=== PATIENT | male | born 1965 | race Caucasian/White ===

== ENCOUNTER 2018-06-01 01:56 | Inpatient (IN) | payer SELFPAY ==
--- OUTSIDE RECORDS SUMMARY | 2018-06-01 01:59 | XMS REPORT | Clinical Summary ---
:1965 Author Organization [facility] Address [address] [place] [address] Care Team Providers Name Role Phone Tl Soria MD Primary Care Provider Allergies No Known Allergies Medications Medication Sig Dispensed Refills Start Date End Date Status traMADol (ULTRAM) 50 Take 1 tablet 15 tablet 0 10/07/2017 10/12/2017 mg tablet (50 mg total) by mouth every 6 (six) hours as needed for moderate pain for up to 5 days. ondansetron ODT Take 1 tablet 10 tablet 0 10/07/2017 11/06/2017 (ZOFRAN ODT) 4 MG (4 mg total) by disintegrating tablet mouth every 8 (eight) hours as needed for nausea or vomiting for up to 30 days. promethazine Take 1 tablet 30 tablet 0 10/07/2017 11/06/2017 (PHENERGAN) 25 MG (25 mg total) tablet by mouth every 6 (six) hours as needed for nausea or vomiting for up to 30 days. Active Problems Not on file Encounters Date Type Specialty Care Team Description 10/07/2017 Emergency Emergency Medicine [facility] Epigastric pain ( Primary Dx); MD Jacob Non-intractable vomiting with nausea, unspecified vomiting type after 05/31/2017 Social History Tobacco Use Types Packs/Day Years Used Date Never Smoker Smokeless Tobacco: Never Used Alcohol Use Drinks/Week oz/Week Comments No former drinker Sex Assigned at Date Recorded Not on file Job Start Date Occupation Industry Not on file Not on file Not on file Travel History Travel Start Travel End No recent travel history available. Last Filed Vital Signs Vital Sign Reading Time Taken Blood Pressure 170/105 10/07/2017 10:30 AM CDT Pulse 99 10/07/2017 10:30 AM CDT Temperature 37.1 C (98.8 F) 10/07/2017 10:30 AM CDT Respiratory Rate 18 10/07/2017 10:30 AM CDT Oxygen Saturation 96% 10/07/2017 10:30 AM CDT Inhaled Oxygen Concentration - - Weight 86.1 kg (189 lb 13.1 oz) 10/07/2017 7:51 AM CDT Height 180.3 cm (5' 11") 10/07/2017 7:51 AM CDT Body Mass Index 26.47 10/07/2017 7:51 AM CDT Plan of Treatment Health Maintenance Due Date Last Done Comments COLON CANCER SCREENING 2014 SHINGRIX VACCINE (1 of 2) 2014 INFLUENZA VACCINE 01/28/2018 HEPATITIS B VACCINES Aged Out No longer eligible based on patient's age to complete this topic IPV VACCINES Aged Out No longer eligible based on patient's age to complete this topic MENINGOCOCCAL VACCINE Aged Out No longer eligible based on patient's age to complete this topic Procedures Procedure Name Priority Date/Time Associated Comments Diagnosis CT RENAL STONE PROTOCOL STAT 10/07/2017 9:38 Results for this AM CDT procedure are in the results section. ECG ED PRELIMINARY Routine 10/07/2017 8:39 Results for this INTERPRETATION AM CDT procedure are in the results section. URINALYSIS SCREEN AND STAT 10/07/2017 8:15 Results for this MICROSCOPY, WITH REFLEX AM CDT procedure are in TO CULTURE the results section. URINE CULTURE STAT 10/07/2017 8:15 Results for this AM CDT procedure are in the results section. ZZESTIMATED GFR STAT 10/07/2017 8:05 Results for this AM CDT procedure are in the results section. TROPONIN STAT 10/07/2017 8:05 Results for this AM CDT procedure are in the results section. LIPASE LEVEL STAT 10/07/2017 8:05 Results for this AM CDT procedure are in the results section. MAGNESIUM LEVEL STAT 10/07/2017 8:05 Results for this AM CDT procedure are in the results section. COMPREHENSIVE METABOLIC STAT 10/07/2017 8:05 Results for this PANEL AM CDT procedure are in the results section. PARTIAL THROMBOPLASTIN STAT 10/07/2017 8:05 Results for this TIME (PTT) AM CDT procedure are in the results section. PROTHROMBIN TIME WITH STAT 10/07/2017 8:05 Results for this INR AM CDT procedure are in the results section. HC COMPLETE BLD COUNT STAT 10/07/2017 8:05 Results for this W/AUTO DIFF AM CDT procedure are in the results section. ECG 12-LEAD STAT 10/07/2017 7:58 Results for this AM CDT procedure are in the results section. after 05/31/[address] Renal Stone Protocol (10/07/2017 9:38 AM CDT) Narrative Performed At EXAMINATION:CT RENAL STONE PROTOCOL [facility] CLINICAL HISTORY:flank pain TECHNIQUE: Multiple axial images of the abdomen and pelvis were obtained without intravenous administration of iodinated contrast. Sagittal and coronal computerized reformatted images were also obtained. The lack of intravenous contrast reduces the sensitivity of detecting solid organ disease. COMPARISON:None. FINDINGS: Lower chest: No parenchymal or amount is noted in the lung bases. Abdomen: Limited evaluation of the solid organs in the absence of intravenous contrast. Fatty infiltration of the liver. No focal liver lesion can be visualized on this noncontrast examination. Spleen is not enlarged. There are prominent varicosities in the gastrosplenic ligament and the left upper quadrant. The adrenal glands are normal. The pancreas is atrophic with dilatation of the main pancreatic duct extending to the level of the pancreatic head. No obvious lesion can be seen on this noncontrast examination. The possibility of the sequela of prior pancreatitis and chronic pancreatitis is raised. No definite peripancreatic inflammation is seen. The adrenal glands are normal. Nonspecific stranding is seen surrounding the kidneys bilaterally. There is no evidence of a renal stone. No definite solid renal mass. No hydronephrosis or hydroureter. There is no evidence of a ureteral calculus. Atherosclerosis abdominal aorta without evidence of aneurysm. No enlarged upper abdominal, retroperitoneal, or mesenteric root lymph nodes by CT size criteria. There is no abnormal colonic wall thickening or evidence of a colonic obstruction. The appendix is normal. There is no evidence of a small bowel obstruction. There is a staple line at the level of the gastric antrum. Pelvis: No free fluid in the pelvis. No enlarged pelvic lymph nodes. Bladder and prostate appear unremarkable. No suspicious bony lesion. IMPRESSION: Atrophic appearance of the pancreas with ductal dilatation as detailed above. Although the findings may be secondary to chronic pancreatitis, an obstructing pancreatic mass cannot be entirely excluded on the basis of a noncontrast CT. This can be further evaluated with a nonemergent contrast enhanced pancreas protocol MRI. No findings to suggest acute pancreatitis. Fatty infiltration of the liver. Nonspecific stranding surrounding the kidneys bilaterally. No evidence of nephroureterolithiasis. Correlate with urinalysis to exclude urinary tract infection. [facility]-[id number] Procedure Note [facility], Radiology Results Incoming - 10/07/2017 9:55 AM CDT EXAMINATION: CT RENAL STONE PROTOCOL CLINICAL HISTORY: flank pain TECHNIQUE: Multiple axial images of the abdomen and pelvis were obtained without intravenous administration of iodinated contrast. Sagittal and coronal computerized reformatted images were also obtained. The lack of intravenous contrast reduces the sensitivity of detecting solid organ disease. COMPARISON: None. FINDINGS: Lower chest: No parenchymal or amount is noted in the lung bases. Abdomen: Limited evaluation of the solid organs in the absence of intravenous contrast. Fatty infiltration of the liver. No focal liver lesion can be visualized on this noncontrast examination. Spleen is not enlarged. There are prominent varicosities in the gastrosplenic ligament and the left upper quadrant. The adrenal glands are normal. The pancreas is atrophic with dilatation of the main pancreatic duct extending to the level of the pancreatic head. No obvious lesion can be seen on this noncontrast examination. The possibility of the sequela of prior pancreatitis and chronic pancreatitis is raised. No definite peripancreatic inflammation is seen. The adrenal glands are normal. Nonspecific stranding is seen surrounding the kidneys bilaterally. There is no evidence of a renal stone. No definite solid renal mass. No hydronephrosis or hydroureter. There is no evidence of a ureteral calculus. Atherosclerosis abdominal aorta without evidence of aneurysm. No enlarged upper abdominal, retroperitoneal, or mesenteric root lymph nodes by CT size criteria. There is no abnormal colonic wall thickening or evidence of a colonic obstruction. The appendix is normal. There is no evidence of a small bowel obstruction. There is a staple line at the level of the gastric antrum. Pelvis: No free fluid in the pelvis. No enlarged pelvic lymph nodes. Bladder and prostate appear unremarkable. No suspicious bony lesion. IMPRESSION: Atrophic appearance of the pancreas with ductal dilatation as detailed above. Although the findings may be secondary to chronic pancreatitis, an obstructing pancreatic mass cannot be entirely excluded on the basis of a noncontrast CT. This can be further evaluated with a nonemergent contrast enhanced pancreas protocol MRI. No findings to suggest acute pancreatitis. Fatty infiltration of the liver. Nonspecific stranding surrounding the kidneys bilaterally. No evidence of nephroureterolithiasis. Correlate with urinalysis to exclude urinary tract infection. [facility]-[id number] Performing Organization Address City/State/Zipcode Phone Number [facility] [address] [place] [address] ECG ED Preliminary Interpretation - NOT AN ORDER (10/07/2017 8:39 AM CDT) Narrative Performed At [facility] MD 10/07/2017 10:29 AM ECG ED Preliminary Interpretation - Not an Order Performed by: [facility] Authorized by: CASA TORREZ ECG reviewed by ED Physician in the absence of a warper fixer: yes Previous ECG: Previous ECG:Unavailable Interpretation: Interpretation: abnormal Rate: ECG rate:129 ECG rate assessment: tachycardic Rhythm: Rhythm: sinus tachycardia Ectopy: Ectopy: none QRS: QRS axis:Normal QRS intervals:Normal Conduction: Conduction: normal ST segments: ST segments:Normal T waves: T waves: normal Urinalysis screen and microscopy, with reflex to culture (10/07/2017 8:15 AM CDT) Specimen site Clean catch [facility] DEPARTMENT OF PATHOLOGY AND GENOMIC MEDICINE Color, UA Yellow YELLOW [facility] GENOMIC MEDICINE Appearance, UA Clear Clear [facility] DEPARTMENT OF PATHOLOGY AND GENOMIC MEDICINE Specific gravity, UA 1.016 1.005 - 1.030 [facility] DEPARTMENT OF PATHOLOGY AND GENOMIC MEDICINE pH, UA 6.0 5.0 - 8.0 [facility] DE[facility] OF PATHOLOGY AND GENOMIC MEDICINE Protein, UA 1+ (A) Negative [facility] DEPARTMENT OF PATHOLOGY AND GENOMIC MEDICINE Glucose, UA Negative Negative [facility] DEPARTMENT OF PATHOLOGY AND GENOMIC MEDICINE Ketones, UA 2+ (A) Negative [facility] DEPARTMENT OF PATHOLOGY AND GENOMIC MEDICINE Bilirubin, UA Negative Negative [facility] DEPARTMENT OF PATHOLOGY AND GENOMIC MEDICINE Blood, UA Negative Negative [facility] DEPARTMENT OF PATHOLOGY AND GENOMIC MEDICINE Nitrite, UA Negative NEGATIVE [facility] DEPARTMENT OF PATHOLOGY AND GENOMIC MEDICINE Urobilinogen, UA <2.0 <2.0 E.U./dL [facility] DEPARTMENT OF PATHOLOGY AND GENOMIC MEDICINE Leukocyte esterase, UA Negative Negative [facility] DEPARTMENT OF PATHOLOGY AND GENOMIC MEDICINE Epithelial cells, UA <1 0 - 15 /HPF [facility] DEPARTMENT OF PATHOLOGY AND GENOMIC MEDICINE WBC, UA 2 0 - 5 /Hpf [facility] DEPARTMENT OF PATHOLOGY AND GENOMIC MEDICINE RBC, UA 1 0 - 5 /HPF [facility] DEPARTMENT OF PATHOLOGY AND GENOMIC MEDICINE Bacteria, UA None seen None seen [facility] DEPARTMENT OF PATHOLOGY AND GENOMIC MEDICINE Yeast, UA None seen None Seen [facility] DEPARTMENT OF PATHOLOGY AND GENOMIC MEDICINE Yeast with pseudohyphae, UA None seen [facility] DEPARTMENT OF PATHOLOGY AND GENOMIC MEDICINE Hyaline casts, UA 10-20/l (H) 0 - 1 [facility] DEPARTMENT OF PATHOLOGY AND GENOMIC MEDICINE Specimen Urine Performing Organization Address City/[facility] Cent[facility] Phone Number [facility] DEPARTMENT OF PATHOLOGY AND [address] [place], [place] [address]y. [address] Urine culture (10/07/2017 8:15 AM CDT) Urine culture SEE COMMENTComment: Bacteriuria [facility] DEPARTMENT OF PATHOLOGY screen negative. AND GENOMIC MEDICINE Performing Organization Address [facility] Cent[facility] Phone Number [facility] PATHOLOGY AND [address] [place], [place] [address]y. [address] Estimated GFR (10/07/2017 8:05 AM CDT) GFR Non Af Amer >90 mL/min/1.73 m2 [facility] DEPARTMENT OF PATHOLOGY AND GENOMIC MEDICINE GFR Af Amer >90 mL/min/1.73 m2 [facility] DEPARTMENT OF Comment: PATHOLOGY AND [facility] Chronic kidney disease: <60 mL/min/1.73m2 MEDICINE Kidney failure: <15 mL/min/1.73m2 The estimated GFR is calculated from the IDMS-traceable Modification of Diet in Renal Disease Equation. The accuracy of the calculation is poor when the creatinine is normal. Calculated values >90 mL/min/1.73m2 are not reported. This equation has not been validated in children (<18 years), women, the elderly (>70 years), or ethnic groups other than Caucasians and Americans. Specimen Plasma specimen Performing Organization Address [facility] Centercode Phone Number [facility] DEPARTMENT OF PATHOLOGY AND [address] [place], [place] [address]y. [address] [place] [id number] [facility] Troponin (10/07/2017 8:05 AM CDT) Troponin <0.300 0.000 - 0.300 ng/mL [facility] DEPARTMENT OF Comment: PATHOLOGY AND GENOMIC The diagnostic value of a single normal or non-diagnostic MEDICINE result is questionable.Serial samples at 2-6 hour intervals are required to rule out acute myocardial injury. Specimen Plasma specimen Performing Organization Address [facility] Cent[facility]ode Phone Number [facility] OF PATHOLOGY AND [address] [place], [place] [address]y. [address] [place] [address] [facility] Partial thromboplastin time, activated (10/07/2017 8:05 AM CDT) PTT 30.1 23.0 - 36.0 sec [facility] DEPARTMENT OF Comment: PATHOLOGY AND [employer] PTT therapeutic range for unfractionated heparin is MEDICINE 66.0-112.0 seconds which corresponds to Anti-Xa 0.3-0.7 U/mL. The reference range has changed starting 11/28/2009 @12:00pm Specimen Blood Performing Organization Address City/[facility] Cent[facility] Phone Number [facility] AND [address] [place], [place] [address]y. [address] [place] [address] [facility] Prothrombin time with INR (10/07/2017 8:05 AM CDT) Prothrombin time 14.3 12.0 - 15.0 sec [facility] DEPARTMENT OF PATHOLOGY AND GENOMIC MEDICINE INR 1.1 [facility] DEPARTMENT OF Comment: PATHOLOGY AND [employer] The International Normalized Ratio (INR) is a therapeutic MEDICINE monitoring tool for patients who are stable on oral anticoagulant therapy. An INR of 2.0-3.0 is suggested for deep vein thrombosis/pulmonary embolism. Specimen Blood Performing Organization Address [facility] Phone Number [facility] AND [address] [place] [address]. [address] [place] [address] [facility] CBC with platelet and differential (10/07/2017 8:05 AM CDT) WBC 8.1 4.5 - 11.0 k/uL [facility] DEPARTMENT OF PATHOLOGY AND GENOMIC MEDICINE RBC 4.51 4.40 - 6.00 M/uL [facility] DEPARTMENT OF PATHOLOGY AND GENOMIC MEDICINE HGB 14.5 14.0 - 18.0 g/dL [facility] DEPARTMENT OF PATHOLOGY AND GENOMIC MEDICINE HCT 39.5 (L) 41.0 - 51.0 % [facility] DEPART[facility] OF PATHOLOGY AND GENOMIC MEDICINE MCV 87.6 82.0 - 100.0 fL [facility] DEPARTMENT OF PATHOLOGY AND GENOMIC MEDICINE MCH 32.2 27.0 - 34.0 pg [facility] DEPARTMENT OF PATHOLOGY AND GENOMIC MEDICINE MCHC 36.7 31.0 - 37.0 g/dL [facility] DEPARTMENT OF PATHOLOGY AND GENOMIC MEDICINE RDW - SD 40.8 37.0 - 55.0 fL [facility] DEPARTMENT OF PATHOLOGY AND GENOMIC MEDICINE MPV 8.8 8.8 - 13.2 fL [facility] DEPARTMENT OF PATHOLOGY AND GENOMIC MEDICINE Platelet count 268 150 - 400 K/uL [facility] DEPARTMENT OF PATHOLOGY AND GENOMIC MEDICINE Nucleated RBC 0.00 /100 WBC [facility] DEPARTMENT OF PATHOLOGY AND GENOMIC MEDICINE Neutrophils 72.3 (H) 39.0 - 69.0 % [facility] DEPARTMENT OF PATHOLOGY AND GENOMIC MEDICINE Lymphocytes 16.7 (L) 25.0 - 45.0 % [facility] DEPARTMENT OF PATHOLOGY AND GENOMIC MEDICINE Monocytes 7.7 0.0 - 10.0 % [facility] DEPARTMENT OF PATHOLOGY AND GENOMIC MEDICINE Eosinophils 2.2 0.0 - 5.0 % [facility] DEPARTMENT OF PATHOLOGY AND GENOMIC MEDICINE Basophils 0.7 0.0 - 1.0 % [facility] DEPARTMENT OF PATHOLOGY AND GENOMIC MEDICINE Immature granulocytes 0.4Comment: "Immature 0.0 - 1.0 % [facility] DEPARTMENT OF granulocytes" PATHOLOGY AND GENOMIC (promyelocytes, MEDICINE myelocytes, metamyelocytes) Specimen Blood Performing Organization Address City/[facility]/Zipcode Phone Number [facility] DEPARTMENT OF PATHOLOGY AND [address] [place] [address] [address] Magnesium level (10/07/2017 8:05 AM CDT) Magnesium 1.5 (L) 1.7 - 2.4 mg/dL [facility] DEPARTMENT OF PATHOLOGY AND GENOMIC MEDICINE Specimen Plasma specimen Performing Organization Address City/[facility] Centercode Phone Number [facility] DEPARTMENT OF PATHOLOGY AND [address] [place] [address] [address] Lipase level (10/07/2017 8:05 AM CDT) Lipase 22 (L) 23 - 300 U/L [facility] DEPARTMENT OF PATHOLOGY AND GENOMIC MEDICINE Specimen Plasma specimen Performing Organization Address City/[facility] Centercode Phone Number [facility] OF PATHOLOGY AND [address] [place] [address] [address] Comprehensive metabolic panel (10/07/2017 8:05 AM CDT) Sodium 140 135 - 148 mEq/L [facility] DEPARTMENT OF PATHOLOGY AND GENOMIC MEDICINE Potassium 3.4 (L) 3.5 - 5.0 mEq/L [facility] DEPARTMENT OF PATHOLOGY AND GENOMIC MEDICINE Chloride 95 (L) 99 - 109 mEq/L [facility] DEPARTMENT OF PATHOLOGY AND GENOMIC MEDICINE CO2 23 (L) 24 - 31 mEq/L [facility] DEPARTMENT OF PATHOLOGY AND GENOMIC MEDICINE Anion gap 22 (H) 7 - 15 mEq/L [facility] DEPARTMENT OF Comment: PATHOLOGY AND GENOMIC Starting from September , anion gap calculation MEDICINE no longer incorporates potassium. Please note the change. BUN 8 8 - 24 mg/dL [facility] DEPARTMENT OF PATHOLOGY AND [employer] MEDICINE Creatinine 0.8 0.5 - 1.5 mg/dL [facility] DEPARTMENT OF PATHOLOGY AND [employer] MEDICINE Glucose 137 (H) 65 - 99 mg/dL [facility] OF PATHOLOGY AND [employer] MEDICINE Calcium 9.4 8.6 - 10.6 mg/dL [facility] DEPARTMENT OF PATHOLOGY AND [employer] MEDICINE Protein 7.6 6.3 - 8.2 g/dL [facility] DEPARTMENT OF PATHOLOGY AND [employer] MEDICINE Albumin 4.5 3.5 - 5.0 g/dL [facility] DEPARTMENT OF PATHOLOGY AND [employer] MEDICINE A/G ratio 1.45 0.70 - 3.80 [facility] DEPARTMENT OF PATHOLOGY AND [employer] MEDICINE Alkaline phosphatase 104 30 - 115 U/L [facility] DEPARTMENT OF PATHOLOGY AND [employer] MEDICINE AST 35 15 - 46 U/L [facility] DEPARTMENT OF PATHOLOGY AND [employer] MEDICINE ALT 29 10 - 55 U/L [facility] DEPARTMENT OF PATHOLOGY AND [employer] MEDICINE Total bilirubin 1.0 0.2 - 1.2 mg/dL [facility] DEPARTMENT OF PATHOLOGY AND [employer] MEDICINE Specimen Plasma specimen Performing Organization Address City/[facility] Centercode Phone Number [facility] DEPARTMENT OF PATHOLOGY AND [address] [place], [place] [address]y. [address] [place] [address] [facility] ECG 12 lead (10/07/2017 7:58 AM CDT) Ventricular rate 129 [facility] MUSE Atrial rate 129 [facility] MUSE [place] interval 174 [facility] MUSE QRSD interval 80 [facility] M[facility] QT interval 288 [facility] QTC interval 421 [facility] P axis 1 47 [facility] QRS axis 1 -22 [facility] MUSE T wave axis 59 [facility] MUSE EKG impression Sinus tachycardia with occasional premature ventricular complexes-Cannot rule out Inferior infarct , age undetermined-Anterior infarct , age undetermined-Abnormal ECG-No previous ECGs available-Electron [facility] MUSE ically Signed By Ricardo Espinosa ([id number]) on 10/09/2017 12:13:04 AM Performing Organization Address City/[facility] Centercode Phone Number [facility] [employer] [address] [place] [address] after 05/31/2017 Advance Directives Patient has advance care planning documents on file. For more information, please contact:[facility] [id number] [place] [address]
--- OUTSIDE RECORDS SUMMARY | 2018-06-01 02:06 | XMS REPORT | Continuity of Care Document ---
:1965 Author Organization Interface Problems Problem Status Onset Classification Date Comments Source Date Reported ABDOMINAL PAIN Active 09/06/19 [facility] ABDOMINAL PAIN, Active 09/06/19 [facility] ALCOHOL DEPENDENCE 17 [facility] WITH ABDOMINAL PAIN, Active 09/06/19 [facility] ALCOHOL DEPENDENCE 17 [facility] WITH WITHDRAWAL ACUTE PANCREATITIS Active 08/05/19 [facility] WITHOUT NECROSIS 17 [facility] OR INFECTION, UNS Discharge 07/23/19 07/27/2016 [facility] Diagnosis: 17 [facility] Accidental fall Discharge 07/23/19 07/27/2016 [facility] Diagnosis: 17 [facility] Laceration Discharge 07/23/19 07/27/2016 [facility] Diagnosis: Acute 17 [facility] alcohol intoxication FALL INJURY Active 07/23/19 [facility] ALCOHOL Active 07/08/19 [facility] INTOXICATION 17 [facility] CONCUSSION WITH Active 07/08/19 [facility] LOSS OF 17 Hospital CONSCIOUSNESS OF UNSPECIFIE FALL Active 07/08/19 [facility] NAUSEA Active 06/30/19 [facility] PANCREATITIS Active 06/30/19 [facility] VOMITING, LT Active 06/13/20 [facility] QUARDRANT PAIN 16 [facility] VOLUME DEPLETION, Active 06/13/20 [facility] UNSPECIFIED 16 [facility] Alcohol dependence Active Problem 09/14/2016 [facility] with withdrawal Hospital delirium Chronic gastritis Active Problem 09/14/2016 [facility] Chronic Active Problem 09/14/2016 [facility] pancreatitis Hospital Alcohol-induced Active Problem 09/14/2016 [facility] pancreatitis Cerebrovascular Resolved Problem 09/14/2016 [facility] accident (<span Hospital ID="[id number]"> Confirmed</span>) Hepatic steatosis Active Problem 09/14/2016 [facility] Asthma Resolved Problem 09/14/2016 [facility] Hypertension Active Problem 09/14/2016 [facility] Arthritis Resolved Problem 09/14/2016 [facility] CHF (<span Resolved Problem 06/17/2016 [facility] ID="[id number]"> Hospital Confirmed</span>) Pancreatitis Resolved Problem 06/17/2016 [facility] CHF (<span Active Problem 09/14/2016 [facility] ID="[id number]"> Hospital Confirmed</span>) Medications Medication Details Route Status Patient Ordering Order Source Instructions Provider Date thiamine 100 mg 100 mg=1 tab, Active [facility] oral tablet PO, Daily, X 30 2016 Hospital day, # 30 tab, 0 Refill(s) Folic Acid 1 MG 1 mg=1 tab, PO, Active [facility] Oral Tablet Daily, # 30 2016 Hospital tab, 0 Refill(s) metoprolol 25 mg, PO, BID, Active [facility] tartrate 25 mg # 60 tab, 0 2016 [facility] oral tablet Refill(s) Chlordiazepoxide 25 mg, 1 cap, No Longer Mee Hydrochloride 25 Route: PO, Drug Active 2016 [facility] MG Oral Capsule form: CAP, BID, Dosing Weight 81.818, kg, Alcohol Withdrawal, Start date: 09/10/16 9:00:00 CDT, Duration: 30 day, Stop date: 10/09/16 21:00:00 CDT Acetaminophen 300 1 tab, Route: No Longer Mee MG / Codeine PO, Drug Form: Active 2016 [facility] Phosphate 30 MG TAB, Dosing Oral Tablet Weight 81.818, [Tylenol with kg, Q4H, PRN Codeine #3] Pain Score 1-3, Start date: 09/09/16 14:24:00 CDT, Duration: 30 day, Stop date: 10/09/16 14:23:00 CDTNotes: Do not exceed 4gm/day of acetaminophen. (Same as: Tylenol with Codeine # 3) Folic Acid 1 mg, 1 tab, No Longer Mee Route: PO, Drug Active 2016 [facility] form: TAB, Daily, Dosing Weight 81.818, kg, Start date: 09/09/16 9:00:00 CDT, Duration: 30 day, Stop date: 10/08/16 9:00:00 CDTNotes: (Same as: Folvite) Thiamine 100 mg, 1 tab, No Longer Mee Route: PO, Drug Active 2016 [facility] form: TAB, Daily, Dosing Weight 81.818, kg, Start date: 09/09/16 9:00:00 CDT, Duration: 30 day, Stop date: 10/08/16 9:00:00 CDTNotes: (Same As: Vitamin B1) Protonix 40 mg, 1 tab, No Longer Mee Route: PO, Drug Active 2016 Hospital form: ECTAB, Before Dinner, Dosing Weight 81.818, kg, Start date: 09/08/16 16:30:00 CDT, Duration: 30 day, Stop date: 10/07/16 16:30:00 CDTNotes: Tablet should not be chewed or crushed. (Same as: Protonix) Sodium Chloride 25 mL, Route: No Longer Mee 0.9% IV IV, Start date: Active 2017 [facility] 09/07/16 16:22:00 [place], Duration: 30 day, Stop date: 10/07/16 17:21:00 CDT, PRN Line Flush Morphine 4 mg, 1 mL, No Longer Mee Route: IVP, Active [address] [place] [address] Drug form: INJ, Q4H, Dosing Weight 81.818, kg, PRN Pain Score 7-10, Start date: 09/07/16 16:17:00 [place], Duration: 30 day, Stop date: 10/07/16 16:16:00 CDTNotes: (Same as:MORPhine Sulfate) Protonix 40 mg, 1 tab, No Longer Mee Route: PO, Drug Active 2016 [facility] form: ECTAB, Before Dinner, Dosing Weight 81.818, kg, Start date: 09/06/16 17:47:00 [place], Duration: 30 day, Stop date: 10/06/16 16:30:00 CDTNotes: Tablet should not be chewed or crushed. (Same as: Protonix) influenza virus 0.5 mL, Route: Inactive Mee vaccine, IM, Drug Form: 2017 [facility] inactivated SUSP, Daily, Start date: 09/06/16 9:00:00 [place], Duration: 1 doses or times, Stop date: 09/06/16 9:00:00 CSTNotes: (Same as: Fluzone Quadrivalent, Fluarix Quadrivalent) For 3 years of age and older (0.5 mL IM) Shake well before use potassium chloride 40 mEq, 2 tab, No Longer Mee Route: PO, Drug Active 2016 Hospital form: ERTAB, Daily, Dosing Weight 81.818, kg, Start date: 09/06/16 9:00:00 [place], Duration: 30 day, Stop date: 10/05/16 9:00:00 CDTNotes: (Same as: K-Dur 20) "Do Not Crush" With food and full glass of water Magnesium Sulfate 2 gm, 50 mL, Inactive Mee Route: IVPB, 2016 [facility] Drug form: INJ, ONCE, Dosing Weight 81.818, kg, Start date: 09/06/16 8:18:00 [place], Duration: 2 hr, Stop date: 09/06/16 8:18:00 CSTNotes: WASTE: F/P - Sink; E - [employer] Trash Bin metoprolol 25 mg, 1 tab, No Longer Mee tartrate Route: PO, Drug Active 2016 Hospital form: TAB, BID, Dosing Weight 81.818, kg, Start date: 09/05/16 21:00:00 [place], Duration: 30 day, Stop date: 10/05/16 9:00:00 CDTNotes: (Same as: Lopressor) Magnesium Sulfate 2 gm, 50 mL, Inactive Mee Route: IVPB, 2016 [facility] Drug form: INJ, Q2H, Dosing Weight 81.818, kg, Total dose=4 gm, Start date: 09/05/16 20:00:00 [place], Duration: 2 doses or times, Stop date: 09/05/16 22:00:00 CSTNotes: WASTE: F/P - Sink; E - [employer]ash Bin Sodium Chloride 250 mL, Rate: Inactive Mee 0.154 MEQ/ML 62.5 ml/hr, 2017 Hospital Injectable Infuse over: Solution 4.2 hr, Route: IV, Dosing Weight 81.818 kg, Total Volume: 260, Start date: 09/05/16 19:29:00 [place], Duration: 1 doses or times, Stop date: 09/05/16 23:40:00 [facility] Chlordiazepoxide 25 mg, 1 cap, No Longer Mee Hydrochloride 25 Route: PO, Drug Active 2016 [facility] MG Oral Capsule form: CAP, Q6H, Dosing Weight 81.818, kg, Alcohol Withdrawal, Start date: 09/05/16 18:00:00 [place], Duration: 30 day, Stop date: 10/05/16 12:00:00 CDT Sodium Chloride 1,000 mL, Rate: No Longer Mee 0.154 MEQ/ML 100 ml/hr, Active 2017 [facility] Injectable Infuse over: Solution 10.1 hr, Route: IV, Dosing Weight 81.818 kg, Total Volume: 1,011.2, Start date: 09/05/16 17:47:00 [place], Duration: 3 day, Stop date: 09/08/16 17:46:00 CDT Lorazepam 1 mg, 1 tab, No Longer Mee Route: PO, Drug Active 2016 [facility] form: TAB, Q4H, Dosing Weight 81.818, kg, PRN Other -See Comment, Start date: 09/05/16 17:47:00 [place], Duration: 30 day, Stop date: 10/05/16 17:46:00 CDT, alcohol withdrawlNotes: (Same as: Ativan) D5NS 1,000 mL 1,000 mL, Rate: No Longer Mee 125 ml/hr, Active 2016 [facility] Infuse over: 8 hr, Route: IV, Dosing Weight 81.818 kg, Total Volume: 1,000, Start date: 09/05/16 17:47:00 [place], Duration: 30 day, Stop date: 10/05/16 17:46:00 CDT Saline Flush 0.9% 10 ml, Route: No Longer Mee IVP, Drug Form: Active 2016 [facility] INJ, Dosing Weight 81.818, kg, PRN, PRN Line Flush, Start date: 09/05/16 17:47:00 [place], Duration: 30 day, Stop date: 10/05/16 18:46:00 CDTNotes: (Same as: BD Posiflush) Docusate 100 mg, 1 cap, No Longer Mee Route: PO, Drug Active 2016 [facility] form: CAP, BID, Dosing Weight 81.818, kg, PRN Constipation, Start date: 09/05/16 17:47:00 [place], Duration: 30 day, Stop date: 10/05/16 17:46:00 CDTNotes: (Same as: Colace) (Do Not Crush) Ondansetron 4 mg, 2 mL, No Longer Mee Route: IVP, Active 2017 [facility] Drug form: INJ, Q4H, Dosing Weight 81.818, kg, PRN Nausea & Vomiting, Start date: 09/05/16 17:47:00 [place], Duration: 30 day, Stop date: 10/05/16 17:46:00 CDTNotes: (Same as: Zofran) MEDICATION WASTE Product Size: 4 mg Product Wasted: ___ mg Acetaminophen 300 1 - 2 tab, PO, Active Mee MG / Codeine Q4H, PRN Pain, 2017 [facility] Phosphate 30 MG X 3 day, # 20 Oral Tablet tab, 0 [Tylenol with Refill(s) Codeine #3] Docusate Sodium 100 mg=1 cap, Active Mee 100 MG Oral PO, BID, PRN 2017 Hospital Capsule Constipation, # 14 cap, 0 Refill(s), Pharmacy: [facility] [id number] Clonidine 0.1 mg=1 tab, Active Mee Hydrochloride 0.1 PO, Q12H, # 60 2017 [facility] MG Oral Tablet tab, 0 Refill(s), Pharmacy: [facility] [id number] clindamycin 150 mg 300 mg=2 cap, Active Mee oral capsule PO, ABXQ6H, X 7 2017 Hospital day, # 56 cap, 0 Refill(s), Pharmacy: [facility] [id number] Ciprofloxacin 3 2 drp, BOTH Active Mee MG/ML Ophthalmic EYES, Q4H, X 5 2017 Hospital Solution day, # 2 mL, 0 Refill(s), Pharmacy: [facility] [id number] Clindamycin 300 mg, 2 cap, No Longer Mee Route: PO, Drug Active 2016 [facility] form: CAP, ABXQ6H, Dosing Weight 81.818, kg, Start date: 08/08/16 13:00:00 [place], Duration: 30 day, Stop date: 09/07/16 7:00:00 CSTNotes: (Same As: Cleocin) Lorazepam 1 mg, 0.5 mL, No Longer Mee Route: IV, Drug Active 2016 [facility] form: INJ, Q2H, Dosing Weight 81.818, kg, PRN as needed for anxiety, Start date: 08/07/16 19:59:00 [place], Duration: 30 day, Stop date: 09/06/16 19:58:00 CSTNotes: (Same as: Ativan) potassium chloride 40 mEq, Route: Inactive Mee PO, Drug form: 2016 [facility] ERTAB, Q4H, Dosing Weight 81.818, kg, Start date: 08/07/16 16:00:00 [place], Duration: 2 doses or times, Stop date: 08/07/16 20:00:00 [facility] Magnesium Sulfate 2 gm, Route: Inactive Mee IVPB, Drug 2016 Hospital form: INJ, ONCE, Dosing Weight 81.818, kg, Total dose=2 gm, Start date: 08/07/16 15:05:00 [place], Duration: 1 doses or times, Stop date: 08/07/16 15:05:00 [facility] potassium chloride 40 mEq, 2 tab, Inactive Mee Route: PO, Drug 2016 Hospital form: ERTAB, Q4Hnow, Dosing Weight 81.818, kg, Start date: 08/07/16 9:00:00 [place] [facility], Duration: 2 doses or times, Stop date: 08/07/16 13:00:00 CSTNotes: (Same as: K-Dur 20) "Do Not Crush" With food and full glass of water Magnesium Sulfate 2 gm, 50 mL, Inactive Mee Route: IVPB, 2017 [facility] Drug form: INJ, ONCE, Dosing Weight 81.818, kg, Total dose=2 gm, Start date: 08/07/16 8:13:00 [place], Duration: 1 doses or times, Stop date: 08/07/16 8:13:00 CSTNotes: WASTE: F/P - Sink; E - [employer] Trash Bin Lorazepam 2 mg, 1 mL, No Longer Mee Route: IV, Drug Active 2016 [facility] form: INJ, Q8H, Dosing Weight 81.818, kg, Start date: 08/06/16 16:00:00 [place], Duration: 30 day, Stop date: 09/05/16 8:00:00 CSTNotes: (Same as: Ativan) Sodium Chloride 250 mL, Rate: Inactive Mee 0.154 MEQ/ML 62.5 ml/hr, 2016 [facility] Injectable Infuse over: 4 Solution hr, Route: IV, Dosing Weight 81.818 kg, Total Volume: 250, Start date: 08/06/16 14:31:00 [place], Duration: 1 doses or times, Stop date: 08/06/16 18:30:00 [facility] Magnesium Sulfate 2 gm, 50 mL, Inactive Mee Route: IVPB, 2016 [facility] Drug form: INJ, ONCE, Dosing Weight 81.818, kg, Total dose=2 gm, Start date: 08/06/16 14:31:00 [place], Duration: 1 doses or times, Stop date: 08/06/16 14:31:00 CSTNotes: WASTE: F/P - Sink; E - [employer] Trash Bin Haldol 5 mg, 1 mL, No Longer Mee Route: IM, Drug Active 2016 [facility] form: INJ, Q4H, Dosing Weight 81.818, kg, PRN Agitation, Start date: 08/06/16 14:27:00 [place], Duration: 30 day, Stop date: 09/05/16 14:26:00 CSTNotes: (Same as: Haldol) potassium chloride 10 mEq, 100 mL, Inactive Mee Route: IVPB, 2016 [facility] Drug form: INJ, Q1H, Dosing Weight 81.818, kg, Total Dose=20 meq, Start date: 08/06/16 11:00:00 [place], Duration: 2 doses or times, Stop date: 08/06/16 12:00:00 [place] [facility], Peripheral LineNotes: Infuse at a rate of 10 mEq/hr. (Same as: KCL) Sodium Chloride 250 mL, Rate: Inactive Mee 0.154 MEQ/ML 62.5 ml/hr, 2016 [facility] Injectable Infuse over: Solution 4.2 hr, Route: IV, Dosing Weight 81.818 kg, Total Volume: 260, Start date: 08/06/16 10:47:00 [place], Duration: 1 doses or times, Stop date: 08/06/16 14:58:00 [facility] [facility] multivitamin 1 tab, Route: No Longer Mee PO, Drug Form: Active 2016 [facility] TAB, Dosing Weight 81.818, kg, Daily, Start date: 08/06/16 9:00:00 [place], Duration: 30 day, Stop date: 09/04/16 9:00:00 CSTNotes: (Same as:Thera) WASTE: F/P - Black; E - [employer] Trash Bin Take with food. Amlodipine 10 mg, 1 tab, No Longer Mee Route: PO, Drug Active 2016 [facility] form: TAB, Daily, Dosing Weight 81.818, kg, Start date: 08/06/16 9:00:00 [place], Duration: 30 day, Stop date: 09/04/16 9:00:00 CSTNotes: (Same as: Norvasc) metoprolol 25 mg, 1 tab, No Longer Mee tartrate Route: PO, Drug Active 2016 [facility] form: TAB, Q12H, Dosing Weight 81.818, kg, Start date: 08/05/16 21:00:00 [place], Duration: 30 day, Stop date: 09/04/16 9:00:00 CSTNotes: (Same as: Lopressor) Amylases 50246 UNT 1 cap, Route: No Longer Mee / Endopeptidases PO, Drug Form: Active 2017 [facility] [address]274 UNT / Lipase DRC, Dosing 64160 UNT Enteric Weight 81.818, Coated Capsule kg, TID, Start [Creon 12] date: 08/05/16 17:00:00 [place], Duration: 30 day, Stop date: 09/04/16 13:00:00 CSTNotes: (lipase 6,000 units, protease 19,000 units, amylase 30,000 units DRC) Same as: Creon (Creon 6) Ciprofloxacin 3 2 drp, Route: No Longer Mee MG/ML Ophthalmic BOTH EYES, Q4H, Active 2016 [facility] Solution Drug form: SOLN, Start date: 08/05/16 16:00:00 [place], Duration: 30 day, Stop date: 09/04/16 12:00:00 CSTNotes: (Same As: Ciloxan) Sodium Chloride 1,000 mL, Rate: No Longer Mee 0.154 MEQ/ML 100 ml/hr, Active 2016 [facility] Injectable Infuse over: Solution 10.1 hr, Route: IV, Dosing Weight 81.818 kg, Total Volume: 1,011.2, Start date: 08/05/16 11:28:00 [place], Duration: 3 day, Stop date: 08/08/16 11:27:00 [place] [facility] multivitamin 1 tab, PO, Active Mee Daily, 0 2016 Hospital Refill(s) metoprolol 25 mg, PO, BID, Active Mee tartrate 0 Refill(s) 2017 Hospital Pepcid 40 mg, PO, Active Mee Daily, PRN acid 2017 [facility] reflux, 0 Refill(s) Amlodipine 10 mg, PO, Active Mee Daily, 0 2016 Hospital Refill(s) Amylases 26239 UNT 1 cap, PO, TID, Active Mee / Endopeptidases 0 Refill(s) 2017 [facility] 39756 UNT / Lipase 03011 UNT Enteric Coated Capsule [Creon 12] Famotidine 20 mg, 2 mL, No Longer Mee Route: IVP, Active 2016 [facility] Drug form: INJ, Q12H, Dosing Weight 81.818, kg, Start date: 08/05/16 9:00:00 [place], Duration: 30 day, Stop date: 09/03/16 21:00:00 CSTNotes: (Same as: Pepcid) Clonidine 0.1 mg, 1 tab, No Longer Mee Route: PO, Drug Active 2016 [facility] form: TAB, Q12H, Dosing Weight 81.818, kg, Start date: 08/05/16 9:00:00 [place], Duration: 30 day, Stop date: 09/03/16 21:00:00 CSTNotes: (Same As: Catapres) NS + KCL 20mEq/L 1,000 mL, Rate: No Longer Mee 1000ml (Premix) 150 ml/hr, Active 2017 [facility] 1,000 mL Infuse over: 6.7 hr, Route: IV, Dosing Weight 81.818 kg, Total Volume: 1,000, Start date: 08/05/16 8:38:00 [place], Duration: 30 day, Stop date: 09/04/16 8:37:00 CSTNotes: PREMIX IV - Do Not Alter WASTE: F/P - Sink; E - [employer] Trash Bin Hydralazine 20 mg, 1 mL, No Longer Mee Route: IVP, [facility] 2016 [facility] Drug form: INJ, Q4H, Dosing Weight 81.818, kg, PRN Hypertension, Start date: 08/05/16 8:37:00 [place], Duration: 30 day, Stop date: 09/04/16 8:36:00 CSTNotes: (Same as: Apresoline) Ativan 2 mg, 1 mL, No Longer Mee Route: IVP, [facility] 2016 [facility] Drug form: INJ, Q6H, Dosing Weight 81.818, kg, PRN Withdrawal, Start date: 08/05/16 8:36:00 [place], Duration: 30 day, Stop date: 09/04/16 8:35:00 CSTNotes: (Same as: Ativan) Docusate 100 mg, 1 cap, No Longer Mee Route: PO, Drug Active 2016 [facility] form: CAP, BID, Dosing Weight 81.818, kg, PRN Constipation, Start date: 08/05/16 8:35:00 [place], Duration: 30 day, Stop date: 09/04/16 8:34:00 CSTNotes: (Same as: Colace) (Do Not Crush) Morphine 2 mg, 1 mL, No Longer Mee Route: IVP, [facility] 2016 [facility] Drug form: SOLN, Q4H, Dosing Weight 81.818, kg, PRN Pain Score 7-10, Start date: 08/05/16 8:35:00 [place], Duration: 30 day, Stop date: 09/04/16 8:34:00 [facility] Phenergan 25 mg, 1 mL, No Longer Mee Route: IV Active [address] [place] [address] Central, Q4H, Dosing Weight 81.818, kg, PRN Nausea & Vomiting, Start date: 08/05/16 8:34:00 [place] [facility], Duration: 30 day, Stop date: 09/04/16 8:33:00 CSTNotes: Do not give IV push. (Same as: Phenergan) Zofran 4 mg, 2 mL, Inactive Mee Route: IVP, [address] [place] [address] Drug form: INJ, ONCE, Dosing Weight 81.818, kg, Priority: STAT, Start date: 08/05/16 7:45:00 [place], Stop date: 08/05/16 7:45:00 CSTNotes: (Same as: Zofran) MEDICATION WASTE Product Size: 4 mg Product Wasted: 0 mg Morphine 4 mg, 1 mL, Inactive Mee Route: IVP, [address] [place] [address] Drug form: INJ, ONCE, Dosing Weight 81.818, kg, Priority: STAT, Start date: 08/05/16 7:45:00 [place], Stop date: 08/05/16 7:45:00 CSTNotes: (Same as:MORPhine Sulfate) Sodium Chloride 1,000 mL, 1,000 Inactive Mee 0.154 MEQ/ML ml/hr, Infuse 2017 [facility] Injectable Over: 1 hr, Solution Route: IV, 1,000, Drug form: INJ, ONCE, Priority: STAT, Dosing Weight 81.818 kg, Start date: 08/05/16 7:45:00 [place], Duration: 1 doses or times, Stop date: 08/05/16 7:45:00 [place] [facility] Sodium Chloride 25 mL, Route: No Longer Mee 0.9% IV IV, Start date: Active [address] [place] [address] 08/05/16 6:15:00 [place] [facility], Duration: 30 day, Stop date: 09/04/16 6:14:00 [place] [facility], PRN Line Flush Sodium Chloride 1,000 mL, 2,000 Inactive Mee 0.154 MEQ/ML ml/hr, Infuse 2017 [facility] Injectable Over: 30 Solution minutes, Route: IV, 1,000, Drug form: INJ, ONCE, Priority: STAT, Dosing Weight 81.818 kg, Start date: 08/05/16 6:08:00 [place], Duration: 1 doses or times, Stop date: 08/05/16 6:08:00 [facility] [facility] Saline Flush 0.9% 10 mL, Route: No Longer Mee IVP, Drug Form: Active 2017 [facility] INJ, Dosing Weight 81.818, kg, PRN, PRN Line Flush, Start date: 08/05/16 6:08:00 [place], Duration: 30 day, Stop date: 09/04/16 6:07:00 CSTNotes: (Same as: BD Posiflush) Ondansetron 4 mg, 2 mL, Inactive Mee Route: IVP, 2016 [facility] Drug form: INJ, ONCE, Dosing Weight 79.3, kg, Priority: STAT, Start date: 07/23/16 20:41:00 [place], Stop date: 07/23/16 20:41:00 CSTNotes: (Same as: Sugey) MEDICATION WASTE Product Size: 4 mg Product Wasted: _0__ mg Morphine 4 mg, 1 mL, Inactive Mee Route: IVP, 2016 [facility] Drug form: INJ, ONCE, Dosing Weight 79.3, kg, Priority: STAT, Start date: 07/23/16 19:33:00 [place], Stop date: 07/23/16 19:33:00 CSTNotes: (Same as:MORPhine Sulfate) Morphine 4 mg, 1 mL, Inactive Mee Route: IVP, 2017 [facility] Drug form: INJ, ONCE, Dosing Weight 79.3, kg, Priority: STAT, Start date: 07/23/16 18:34:00 [place], Stop date: 07/23/16 18:34:00 CSTNotes: (Same as:MORPhine Sulfate) pantoprazole 40 mg, Route: Inactive Mee IVP, Drug form: 2017 [facility] INJ, ONCE, Dosing Weight 79.3, kg, Priority: STAT, Start date: 07/23/16 18:33:00 [place], Stop date: 07/23/16 18:33:00 [facility] Ondansetron 4 mg, 2 mL, Inactive Mee Route: IVP, 2017 [facility] Drug form: INJ, ONCE, Dosing Weight 79.3, kg, Priority: STAT, Start date: 07/23/16 17:45:00 [place], Stop date: 07/23/16 17:45:00 CSTNotes: (Same as: Sugey) MEDICATION WASTE Product Size: 4 mg Product Wasted: _0__ mg Morphine 4 mg, 1 mL, Inactive Mee Route: IVP, 2017 [facility] Drug form: INJ, ONCE, Dosing Weight 79.3, kg, Priority: STAT, Start date: 07/23/16 17:45:00 [place], Stop date: 07/23/16 17:45:00 CSTNotes: (Same as:MORPhine Sulfate) Sodium Chloride 1,000 mL, Rate: No Longer Mee 0.154 MEQ/ML 100 ml/hr, Active 2017 [facility] Injectable Infuse over: Solution 10.1 hr, Route: IV, Dosing Weight 79.3 kg, Total Volume: 1,011.2, Start date: 07/23/16 14:20:00 [place] [facility], Duration: 3 day, Stop date: 07/26/16 14:19:00 [facility] [facility] Sodium Chloride 25 mL, Route: No Longer Mee 0.9% IV IV, Start date: Active [facility] 07/23/16 11:49:00 [place] [facility], Duration: 30 day, Stop date: 08/22/16 11:48:00 [place], PRN Line Flush Saline Flush 0.9% 10 mL, Route: No Longer Mee IVP, Drug Form: Active 2017 [facility] INJ, Dosing Weight 79.3, kg, PRN, PRN Line Flush, Start date: 07/23/16 11:43:00 [place] [facility], Duration: 30 day, Stop date: 08/22/16 11:42:00 CSTNotes: (Same as: BD Posiflush) Sodium Chloride 1,000 mL, 2,000 Inactive Mee 0.154 MEQ/ML ml/hr, Infuse 2017 [facility] Injectable Over: 0.5 hr, Solution Route: IV, 1,000, Drug form: INJ, ONCE, Priority: STAT, Dosing Weight 79.3 kg, Start date: 07/23/16 11:43:00 [place] [facility], Duration: 1 doses or times, Stop date: 07/23/16 11:43:00 [facility] Acetaminophen 650 mg, 2 tab, Inactive Mee Route: PO, Drug 2017 [facility] form: TAB, ONCE, Dosing Weight 79.3, kg, Priority: STAT, Start date: 07/23/16 11:43:00 [place] [facility], Stop date: 07/23/16 11:43:00 CSTNotes: Do not exceed 4 gm/day. (Same as: Tylenol) Ondansetron 4 MG 4 mg=1 tab, PO, Active Mee Disintegrating BID, PRN Nausea 2017 Hospital Tablet [Zofran] and Vomiting, Dissolve tab under tongue, X 5 day, # 10 tab, 2 Refill(s) Dicyclomine 20 mg=1 tab, Active Mee Hydrochloride 20 PO, QID, PRN 2017 [facility] MG Oral Tablet Pain Score 4-6, [Bentyl] # 60 tab, 0 Refill(s) pantoprazole 40 MG 40 mg=1 tab, Active Mee Enteric Coated PO, Daily, # 30 2017 [facility] Tablet [Protonix] tab, 0 Refill(s) metoprolol 25 mg=1 tab, Active Mee tartrate 25 mg PO, BID, # 60 2017 [facility] oral tablet tab, 0 Refill(s) Multiple Vitamins 1 tab, PO, Active Mee oral capsule Breakfast, # 30 2017 [facility] tab, 1 Refill(s) 12 HR Hyoscyamine 0.375 mg=1 tab, Active Mee Sulfate 0.375 MG PO, Q12H, # 60 2017 [facility] Extended Release tab, 0 Tablet Refill(s) amLODIPine 10 mg 10 mg=1 tab, Active Mee oral tablet PO, Daily, # 30 2017 [facility] tab, 0 Refill(s) Acetaminophen 300 1 tab, PO, TID, Active Mee MG / Codeine PRN Pain Score 2017 [facility] Phosphate 30 MG 7-10, X 10 day, Oral Tablet # 30 tab, 0 Refill(s) acetaminophen-code 1 tab, Route: No Longer Mee ine 300 mg-30 mg PO, Drug Form: Active 2016 Hospital oral tablet TAB, Q4H, PRN Pain Score 7-10, Start date: 07/13/16 11:09:00 [employer], Duration: 30 day, Stop date: 08/12/16 11:08:00 CSTNotes: Do not exceed 4gm/day of acetaminophen. (Same as: Tylenol with Codeine # 3) Acetaminophen 300 1 tab, Route: Inactive Mee MG / Codeine PO, Drug Form: 2017 [facility] Phosphate 60 MG TAB, Dosing Oral Tablet Weight 79.3, [Tylenol with kg, Q4H, PRN Codeine #4] Pain Score 7-10, Start date: 07/13/16 9:16:00 C[employer] BAR[employer]ECUE, Duration: 30 day, Stop date: 08/12/16 9:15:00 [employer]UE Chlordiazepoxide 25 mg, 1 cap, No Longer Mee Hydrochloride 25 Route: PO, Drug Active [facility] MG Oral Capsule form: CAP, Q8H, Dosing Weight 79.3, kg, PRN Withdrawal, Alcohol Withdrawal, Start date: 07/13/16 9:15:00 C[employer] BAR[employer]ECUE, Duration: 30 day, Stop date: 08/12/16 9:14:00 [employer] Lorazepam 1 mg, 0.5 mL, No Longer Mee Route: IVP, Active 2016 [facility] Drug form: INJ, Q12H, Dosing Weight 79.3, kg, Start date: 07/13/16 0:00:00 C[employer] BARBECUE, Duration: 24 hr, Stop date: 07/13/16 12:00:00 CSTNotes: (Same as: Ativan) Chlordiazepoxide 25 mg, 1 cap, No Longer Mee Route: PO, Drug Active 2016 [facility] form: CAP, Bedtime, Dosing Weight 84.091, kg, Start date: 07/12/16 21:00:00 C[employer] BARBECUE, Duration: 1 day, Stop date: 07/12/16 21:00:00 [facility] Acetaminophen 325 1 tab, Route: No Longer Mee MG / Hydrocodone PO, Drug Form: Active 2017 [facility] Bitartrate 5 MG TAB, Dosing Oral Tablet [[place] Weight 79.3, 5/325] kg, Q4H, PRN Pain Score 7-10, Start date: 07/12/16 13:06:00 [facility], Duration: 30 day, Stop date: 08/11/16 13:05:00 CSTNotes: (Same as: [place] 325/5) Do not exceed 4gm/day of acetaminophen. Morphine 2 mg, 1 mL, No Longer Mee Route: IVP, Active 2016 [facility] Drug form: SOLN, Q8H, Dosing Weight 79.3, kg, PRN Pain Score 7-10, Start date: 07/12/16 13:06:00 [facility], Duration: 30 day, Stop date: 08/11/16 13:05:00 [facility] Chlordiazepoxide 25 mg, 1 cap, No Longer Mee Hydrochloride 25 Route: PO, Drug Active 2016 [facility] MG Oral Capsule form: CAP, Q6H, Dosing Weight 79.3, kg, PRN Withdrawal, Alcohol Withdrawal, Start date: 07/12/16 13:02:00 [facility], Duration: 30 day, Stop date: 08/11/16 13:01:00 [facility] Amlodipine 10 mg, 1 tab, No Longer Mee Route: PO, Drug Active 2016 [facility] form: TAB, Daily, Dosing Weight 79.3, kg, Start date: 07/12/16 9:00:00 [facility], Duration: 30 day, Stop date: 08/10/16 9:00:00 CSTNotes: (Same as: Norvasc) Lorazepam 1 mg, 0.5 mL, Inactive Mee Route: IVP, 2016 [facility] Drug form: INJ, Q8H, Dosing Weight 79.3, kg, Start date: 07/11/16 20:00:00 [facility], Duration: 24 hr, Stop date: 07/12/16 12:00:00 CSTNotes: (Same as: Ativan) Chlordiazepoxide 25 mg, 1 cap, No Longer Mee Route: PO, Drug Active 2016 [facility] form: CAP, Q12H, Dosing Weight 84.091, kg, Start date: 07/11/16 9:00:00 [facility], Duration: 1 day, Stop date: 07/11/16 21:00:00 [facility] Lorazepam 1 mg, 0.5 mL, No Longer Mee Route: IVP, Active 2016 [facility] Drug form: INJ, Q6H, Dosing Weight 79.3, kg, Start date: 07/10/16 18:00:00 [facility], Duration: 24 hr, Stop date: 07/11/16 12:00:00 CSTNotes: (Same as: Ativan) potassium chloride 10 mEq, 100 mL, Inactive Mee Route: IVPB, 2016 [facility] Drug form: INJ, Q1H, Dosing Weight 79.3, kg, Total Dose=60 meq, Start date: 07/10/16 7:00:00 [facility], Duration: 6 doses or times, Stop date: 07/10/16 12:00:00 [facility], Peripheral LineNotes: Infuse at a rate of 10 mEq/hr. (Same as: KCL) Tums 500 mg, 1 tab, No Longer Mee Route: CHEW, Active 2016 [facility] Drug form: CHEWTAB, TID, Dosing Weight 79.3, kg, PRN Indigestion, Priority: NOW, Start date: 07/10/16 2:39:00 [facility], Duration: 30 day, Stop date: 08/09/16 2:38:00 CSTNotes: (Same As: Tums) Calcium Carbonate 500 zs=736 mg elemental calcium Dose= mg calcium carbonate ( mg elemental calcium) Lorazepam 2 mg, 1 mL, No Longer Mee Route: IVP, Active 2016 [facility] Drug form: INJ, Q8H, Dosing Weight 79.3, kg, Start date: 07/09/16 20:00:00 [facility], Duration: 24 hr, Stop date: 07/10/16 12:00:00 CSTNotes: (Same as: Ativan) Protonix 40 mg, 1 tab, No Longer Mee Route: PO, Drug Active 2016 [facility] form: ECTAB, Before Dinner, Dosing Weight 79.3, kg, Start date: 07/09/16 16:30:00 [facility], Duration: 30 day, Stop date: 08/07/16 16:30:00 CSTNotes: Tablet should not be chewed or crushed. (Same as: Protonix) Chlordiazepoxide 25 mg, 1 cap, No Longer Mee Route: PO, Drug Active 2016 [facility] form: CAP, Q6H, Dosing Weight 84.091, kg, Start date: 07/09/16 12:00:00 [facility], Duration: 1 day, Stop date: 07/10/16 6:00:00 [facility] Morphine 2 mg, 1 mL, No Longer Mee Route: IVP, Active 2016 [facility] Drug form: SOLN, Q2H, Dosing Weight 79.3, kg, PRN Pain Score 7-10, Start date: 07/09/16 11:41:00 [facility], Duration: 30 day, Stop date: 08/08/16 11:40:00 [facility] Folic Acid 1 mg, 1 tab, No Longer Mee Route: PO, Drug Active 2016 [facility] form: TAB, Daily, Dosing Weight 79.3, kg, Start date: 07/09/16 10:00:00 [facility], Duration: 30 day, Stop date: 08/08/16 9:00:00 CSTNotes: (Same as: Folvite) Bentyl 20 mg, 1 tab, No Longer Mee Route: PO, Drug Active 2016 [facility] form: TAB, QID, Dosing Weight 79.3, kg, Start date: 07/09/16 10:00:00 [facility], Duration: 30 day, Stop date: 08/08/16 9:00:00 CSTNotes: (Same as: Bentyl) metoprolol 50 mg, 1 tab, No Longer Mee tartrate Route: PO, Drug Active 2016 [facility] form: TAB, Q12H, Dosing Weight 79.3, kg, Start date: 07/09/16 10:00:00 [facility], Stop date: 08/08/16 9:00:00 CSTNotes: (Same as: Lopressor) Hydralazine 10 mg, 0.5 mL, No Longer Mee Route: IVP, Active 2016 [facility] Drug form: INJ, Q4H, Dosing Weight 79.3, kg, PRN Hypertension, Start date: 07/08/16 21:39:00 [facility], Duration: 30 day, Stop date: 08/07/16 21:38:00 CSTNotes: (Same as: Apresoline) Push over 5 minutes Lorazepam 2 mg, 1 mL, No Longer Mee Route: IVP, Active 2016 [facility] Drug form: INJ, Q6H, Dosing Weight 79.3, kg, Start date: 07/08/16 18:00:00 [facility], Duration: 24 hr, Stop date: 07/09/16 12:00:00 CSTNotes: (Same as: Ativan) Morphine 2 mg, 1 mL, No Longer Mee Route: IV, Drug Active 2016 [facility] form: SOLN, Q4H, Dosing Weight 79.3, kg, PRN Pain Score 4-6, Start date: 07/08/16 16:58:00 [facility], Duration: 30 day, Stop date: 08/07/16 16:57:00 [facility] Protonix Route: IVP, No Longer Mee Before Dinner, Active 2016 [facility] Dosing Weight 84.091, kg, Patient is NPO, Start date: 07/08/16 16:30:00 [facility], Duration: 30 day, Stop date: 08/06/16 16:30:00 CSTNotes: For IV push reconstitute with 10 ml 0.9% sodium chloride and push over 2 minutes. (Same as: Protonix) Lorazepam 4 mg, 2 mL, No Longer Mee Route: IVP, [facility] 2016 [facility] Drug form: INJ, Q2H, Dosing Weight 79.3, kg, PRN Other -See Comment, CIWA Score 15-20, Start date: 07/08/16 15:33:00 [facility], Duration: 30 day, Stop date: 08/07/16 15:32:00 CSTNotes: (Same as: Ativan) 12 HR Hyoscyamine 0.375 mg, 1 No Longer Mee Sulfate 0.375 MG tab, Route: PO, [facility] 2016 [facility] Extended Release Drug form: Tablet ERTAB, Q12H, Dosing Weight 84.091, kg, Start date: 07/08/16 9:00:00 [facility], Duration: 30 day, Stop date: 08/06/16 21:00:00 CSTNotes: (Same as: Levbid) "Do Not Crush" Take 30 min before meal Amylases 22721 UNT 1 cap, Route: No Longer Mee / Endopeptidases PO, Drug Form: [address] [address] UNT / Lipase DRC, Dosing 96116 UNT Enteric Weight 84.091, Coated Capsule kg, TID, Start [Creon 12] date: 07/08/16 9:00:00 [facility], Duration: 30 day, Stop date: 08/06/16 17:00:00 CSTNotes: (lipase 6,000 units, protease 19,000 units, amylase 30,[address]) Same as: Creon (Creon 6) Chlordiazepoxide 50 mg, 2 cap, Inactive Mee Route: PO, Drug 2016 [facility] form: CAP, Q8H, Dosing Weight 84.091, kg, Start date: 07/08/16 8:00:00 [facility], Duration: 1 day, Stop date: 07/09/16 0:00:00 [facility] sodium phosphate + 15 mmol, 5 mL, No Longer Mee sodium chloride Route: IVPB, Active 2016 [facility] 0.9% INJ 250 mL PRN, Dosing Weight 79.3, kg, PRN Abnormal Lab Result, For NON-ICU Patients Only., Start date: 07/08/16 6:50:00 [facility], Duration: 30 day, Stop date: 08/07/16 6:49:00 [facility] potassium 30 mmol, 10 mL, No Longer Mee phosphate + sodium Route: IVPB, Active 2016 [facility] chloride 0.9% INJ PRN, Dosing 250 mL Weight 79.3, kg, PRN Abnormal Lab Result, For NON-ICU Patients Only., Start date: 07/08/16 6:50:00 [facility], Duration: 30 day, Stop date: 08/07/16 6:49:00 CSTNotes: (Same as: K Phosphate.) 1 mMol phoshate has 1.47 mEq potassium Infuse over 4 hours Magnesium Sulfate 1 gm, 100 mL, No Longer Mee Route: IVPB, Active 2016 [facility] Drug form: INJ, PRN, Dosing Weight 79.3, kg, PRN Abnormal Lab Result, For NON-ICU Patients Only., Start date: 07/08/16 6:50:00 [facility], Duration: 30 day, Stop date: 08/07/16 6:49:00 CSTNotes: WASTE: F/P - Sink; E - [employer] Trash Bin potassium chloride 20 mEq, 15 mL, No Longer Mee Route: NJ, Drug Active 2016 [facility] form: LIQ, PRN, Dosing Weight 79.3, kg, PRN Abnormal Lab Result, For NON-ICU Patients Only, Start date: 07/08/16 6:50:00 [facility], Duration: 30 day, Stop date: 08/07/16 6:49:00 CSTNotes: (Same as: Potassium Chloride) potassium 2 pkt, Route: No Longer Mee phosphate-sodium PO, Drug Form: Active 2017 [facility] phosphate 250 PDR/REC, Dosing mg-280 mg-160 mg Weight 79.3, oral powder for kg, PRN, PRN reconstitution Abnormal Lab Result, For NON-ICU Patients Only, Start date: 07/08/16 6:50:00 [facility], Duration: 30 day, Stop date: 08/07/16 6:49:00 CSTNotes: (Same as: Phos-NaK) Each 1.5 gm pkt has 250mg phosphorous. Mix w/2.5oz water and stir. Magnesium Oxide 800 mg, 2 tab, No Longer Mee Route: PO, Drug Active 2016 [facility] form: TAB, PRN, Dosing Weight 79.3, kg, PRN Abnormal Lab Result, For NON-ICU Patients Only., Start date: 07/08/16 6:50:00 [facility], Duration: 30 day, Stop date: 08/07/16 6:49:00 CSTNotes: (Same as: Mag-Ox 400) Magnesium oxide [id number] elemental magnesium Dose=____mg magnesium oxide (___mg elemental magnesium) Calcium Gluconate 3 gm, 30 mL, No Longer Mee Route: IVPB, Active 2017 [facility] Drug form: INJ, PRN, Dosing Weight 79.3, kg, PRN Abnormal Lab Result, For NON-ICU Patients Only., Start date: 07/08/16 6:50:00 [facility], Stop date: 08/07/16 6:49:00 CSTNotes: WASTE: F/P - Sink; E - [employer] Trash [employer] Acetaminophen 325 1 tab, Route: No Longer Mee MG / Hydrocodone PO, Drug Form: Active 2017 [facility] Bitartrate 5 MG TAB, Dosing Oral Tablet [[place] Weight 84.091, 5/325] kg, Q6H, PRN Pain Score 4-6, Start date: 07/08/16 6:37:00 [facility], Duration: 30 day, Stop date: 08/07/16 6:36:00 CSTNotes: (Same as: [place] 325/5) Do not exceed 4gm/day of acetaminophen. Dilaudid 0.2 mg, 0.1 mL, No Longer Mee Route: IVP, Active [address] [place] [address] Drug form: INJ, Q4H, Dosing Weight 84.091, kg, PRN Pain Score 7-10, Start date: 07/08/16 6:37:00 [facility], Duration: 30 day, Stop date: 08/07/16 6:36:00 CSTNotes: Same as Dilaudid Lorazepam 0.5 mg, 0.25 Inactive Mee mL, Route: IVP, [address] [place] [address] Drug form: INJ, Q3H, Dosing Weight 84.091, kg, PRN Agitation, Start date: 07/08/16 6:25:00 [facility], Duration: 3 doses or times, Stop date: Limited # of timesNotes: (Same as: Ativan) Sodium Chloride 1,000 mL, 1,000 Inactive Mee 0.154 MEQ/ML ml/hr, Infuse 2017 [facility] Injectable Over: 1 hr, Solution Route: IV, 1,000, Drug form: INJ, ONCE, Priority: STAT, Dosing Weight 84.091 kg, Start date: 07/08/16 6:18:00 [facility], Duration: 1 doses or times, Stop date: 07/08/16 6:18:00 [facility] Acetaminophen 325 1 tab, Route: Inactive Mee MG / Hydrocodone PO, Drug Form: [address] [place] [address] Bitartrate 5 MG TAB, Dosing Oral Tablet Weight 84.091, kg, Q4H, PRN Pain Score 1-3, Start date: 07/08/16 6:18:00 [facility], Duration: 30 day, Stop date: 08/07/16 6:17:00 [facility] Acetaminophen 650 mg, 2 tab, No Longer Mee Route: PO, Drug Active [address] [place] [address] form: TAB, Q4H, Dosing Weight 84.091, kg, PRN Pain 1-3/Temp > 100.4 F, Start date: 07/08/16 6:18:00 [facility], Duration: 30 day, Stop date: 08/07/16 6:17:00 CSTNotes: Do not exceed 4 gm/day. (Same as: Tylenol) Ondansetron 4 mg, 2 mL, No Longer Mee Route: IVP, Active [address] [place] [address] Drug form: INJ, Q4H, Dosing Weight 84.091, kg, PRN Nausea & Vomiting, Start date: 07/08/16 6:18:00 [facility], Duration: 30 day, Stop date: 08/07/16 6:17:00 CSTNotes: (Same as: Zofran) MEDICATION WASTE Product Size: 4 mg Product Wasted: ___ mg Sodium Chloride 1,000 mL, Rate: Inactive Mee 0.154 MEQ/ML 100 ml/hr, [address] [place] [address] Injectable Infuse over: Solution 10.1 hr, Route: IV, Dosing Weight 84.091 kg, Total Volume: 1,011.2, Start date: 07/08/16 5:26:00 [facility], Duration: 1 doses or times, Stop date: 07/08/16 15:31:00 [facility] Thiamine 100 mg, 1 mL, Inactive Mee Route: IV, [address] [place] [address] ONCE, Dosing Weight 84.091, kg, Priority: STAT, Start date: 07/08/16 5:26:00 [facility], Stop date: 07/08/16 5:26:00 CSTNotes: (Same As: Vitamin B1) Zofran 4 mg, Route: Inactive Mee IVP, Drug form: [address] [place] [address] INJ, ONCE, Dosing Weight 84.091, kg, Priority: STAT, Start date: 07/08/16 5:23:00 [facility], Stop date: 07/08/16 5:23:00 [facility] Sodium Chloride 25 mL, Route: No Longer Mee 0.9% IV IV, Start date: Active [address] [place] [address] 07/08/16 3:38:00 [facility], Duration: 30 day, Stop date: 08/07/16 3:37:00 [facility], PRN Line Flush Fentanyl 100 microgram, Inactive Mee 2 mL, Route: [address] [place] [address] IVP, Drug form: INJ, ONCE, Dosing Weight 84.091, kg, Priority: STAT, Start date: 07/08/16 3:29:00 [facility], Stop date: 07/08/16 3:29:00 CSTNotes: (Same as: Sublimaze) Preservative free. Calcium Chloride 1,000 mL, 2,000 Inactive Mee 0.0014 MEQ/ML / ml/hr, Infuse [address] [place] [address] Potassium Chloride Over: 0.5 hr, 0.004 MEQ/ML / Route: IV, Sodium Chloride 1,000, Drug 0.103 MEQ/ML / form: INJ, Sodium Lactate ONCE, Priority: 0.028 MEQ/ML STAT, Dosing Injectable Weight 84.091 Solution kg, Start date: 07/08/16 3:29:00 [facility], Duration: 1 doses or times, Stop date: 07/08/16 3:29:00 [facility] Saline Flush 0.9% 10 mL, Route: No Longer Mee IVP, Drug Form: Active [address] [place] [address] INJ, Dosing Weight 84.091, kg, PRN, PRN Line Flush, Start date: 07/08/16 3:29:00 [facility], Duration: 30 day, Stop date: 08/07/16 3:28:00 CSTNotes: (Same as: BD Posiflush) Ondansetron 4 mg, 2 mL, Inactive Mee Route: IVP, [address] [place] [address] Drug form: INJ, ONCE, Dosing Weight 84.091, kg, Priority: STAT, Start date: 07/08/16 3:29:00 [facility], Stop date: 07/08/16 3:29:00 CSTNotes: (Same as: Zofran) MEDICATION WASTE Product Size: 4 mg Product Wasted: _0__ mg Hydralazine 10 mg, Route: Inactive Mee IVP, ONCE, 2015 [facility] Dosing Weight 85.909, kg, Start date: 06/14/16 13:36:00 [facility], Stop date: 06/14/16 13:36:00 [facility] Bentyl 20 mg, 1 tab, Inactive Mee Route: PO, Drug 2015 [facility] form: TAB, QID, Dosing Weight 85.909, kg, Start date: 06/14/16 13:00:00 [facility], Duration: 30 day, Stop date: 07/14/16 9:00:00 CSTNotes: (Same as: Bentyl) metoprolol 25 mg=1 tab, Active Mee tartrate 25 mg PO, BID, # [address] [facility] oral tablet tab, 0 Refill(s) Amylases 10307 UNT 1 cap, PO, TID, Active Mee / Endopeptidases # 90 cap, 1 2016 [facility] [address]71 UNT / Lipase Refill(s) 88135 UNT Enteric Coated Capsule Folic Acid 1 MG 1 mg=1 tab, PO, Active Mee Oral Tablet Daily, # 30 2016 [facility] tab, 0 Refill(s) tramadol 50 mg=1 tab, Active Mee hydrochloride 50 PO, Q6H, # 30 2016 [facility] MG Oral Tablet tab, 0 Refill(s) pantoprazole 40 MG 40 mg=1 tab, Active Mee Enteric Coated PO, Daily, # [address] [facility] Tablet [Protonix] tab, 0 Refill(s) Dicyclomine 20 mg=1 tab, Active Mee Hydrochloride 20 PO, QID, # 60 2016 [facility] MG Oral Tablet tab, 0 [Bentyl] Refill(s) Acetaminophen 300 1 tab, PO, Q6H, Active Mee MG / Codeine PRN as needed 2016 [facility] Phosphate 30 MG for pain 6-10, Oral Tablet # 30 tab, 0 [Tylenol with Refill(s) Codeine #3] thiamine 100 mg 100 mg=1 tab, Active Mee oral tablet PO, Daily, # 30 2016 [facility] tab, 0 Refill(s) Multiple Vitamins 1 tab, PO, Active Mee oral capsule Breakfast, # 30 2016 [facility] tab, 1 Refill(s) LORazepam 1 mg 1 mg=1 tab, PO, Active Mee oral tablet TID, PRN 2016 [facility] Anxiety, # 20 tab, 0 Refill(s) pantoprazole Route: IV, Drug Inactive Mee form: INJ, 2015 [facility] Daily, Dosing Weight 85.909, kg, Start date: 06/14/16 9:00:00 [facility], Duration: 30 day, Stop date: 07/13/16 9:00:00 CSTNotes: For IV push reconstitute with 10 ml 0.9% sodium chloride and push over 2 minutes. (Same as: Protonix) Folic Acid 1 mg, 1 tab, Inactive Mee Route: PO, Drug 2015 [facility] form: TAB, Daily, Dosing Weight 85.455, kg, Start date: 06/14/16 9:00:00 [facility], Duration: 5 day, Stop date: 06/18/16 9:00:00 CSTNotes: (Same as: Folvite) Thiamine 100 mg, 1 mL, Inactive Mee Route: IV, 2015 [facility] Daily, Dosing Weight 85.455, kg, Start date: 06/14/16 9:00:00 [facility], Duration: 3 day, Stop date: 06/16/16 9:00:00 CSTNotes: (Same As: Vitamin B1) Labetalol 20 mg, 4 mL, Inactive Mee Route: IV, Drug 2015 [facility] form: INJ, Q4H, Dosing Weight 85.909, kg, PRN Elevated BP, Start date: 06/14/16 8:42:00 [facility], Duration: 30 day, Stop date: 07/14/16 8:41:00 [facility], as needed for sbp>160mmhgNote s: (Same as: Normodyne, Trandate) Push over 2 minutes Give bolus over 2-3 minutes. Ondansetron 4 mg, 2 mL, Inactive Mee Route: IVP, 2015 [facility] Drug form: INJ, ONCE, Dosing Weight 85.909, kg, PRN Nausea & Vomiting, Start date: 06/14/16 8:40:00 CSTNotes: (Same as: Zofran) MEDICATION WASTE Product Size: 4 mg Product Wasted: ___ mg Meperidine 12.5 mg, 0.5 Inactive Mee mL, Route: IVP, 2015 [facility] Drug form: INJ, Q30Min, Dosing Weight 85.909, kg, PRN Other -See Comment, For shivering, Start date: 06/14/16 8:40:00 [facility], Duration: 2 doses or times, Stop date: Limited # of timesNotes: (Same as: Demerol) "Use Precaution in Elderly, Seizure disorders, and Renal impairment" Diphenhydramine 12.5 mg, 0.25 Inactive Mee mL, Route: IVP, 2015 [facility] Drug form: INJ, Q6H, Dosing Weight 85.909, kg, PRN Itching, Start date: 06/14/16 8:40:00 [facility] [facility], Duration: 30 day, Stop date: 07/14/16 8:39:00 CSTNotes: (Same as: Benadryl) Flumazenil 0.2 mg, 2 mL, Inactive Mee Route: IVP, 2015 [facility] Drug form: INJ, PRN, Dosing Weight 85.909, kg, PRN Benzodiazepine Reversal, Initial dose, Start date: 06/14/16 8:40:00 [facility], Duration: 30 day, Stop date: 07/14/16 8:39:00 CSTNotes: (Same as: Romazicon) Naloxone 0.4 mg, 1 mL, Inactive Mee Route: IVP, 2015 [facility] Drug form: INJ, Q2MIN, Dosing Weight 85.909, kg, PRN Narcotic Reversal, Start date: 06/14/16 8:40:00 [facility], Duration: 8 doses or times, Stop date: Limited # of timesNotes: Same as Narcan Morphine 4 mg, 1 mL, Inactive Mee Route: IVP, 2015 [facility] Drug form: INJ, Q5Min, Dosing Weight 85.909, kg, PRN Pain Score 7-10, Start date: 06/14/16 8:40:00 [facility], Duration: 3 doses or times, Stop date: Limited # of timesNotes: (Same as:MORPhine Sulfate) multivitamin 1 tab, Route: Inactive Mee PO, Drug Form: 2015 [facility] TAB, Dosing Weight 85.455, kg, Breakfast, Start date: 06/14/16 8:00:00 [facility], Duration: 5 day, Stop date: 06/18/16 8:00:00 [facility] Ativan 1 mg, 1 tab, Inactive Mee Route: PO, Drug 2015 [facility] form: TAB, TID, Dosing Weight 85.909, kg, PRN Anxiety, Start date: 06/14/16 4:03:00 [facility], Duration: 30 day, Stop date: 07/14/16 4:02:00 CSTNotes: (Same as: Ativan) Ativan 1 mg, 0.5 mL, Inactive Mee Route: IV, Drug 2015 [facility] form: INJ, ONCE, Dosing Weight 85.909, kg, Priority: NOW, Start date: 06/14/16 3:58:00 [facility] [facility], Stop date: 06/14/16 3:58:00 CSTNotes: (Same as: Ativan) Phenergan 25 mg, 1 mL, Inactive Mee Route: IVPB, 2015 [facility] Q6H, Dosing Weight 85.909, kg, PRN as needed for nausea/vomiting , Start date: 06/14/16 0:24:00 [facility], Duration: 30 day, Stop date: 07/14/16 0:23:00 [facility] Zofran 4 mg, 2 mL, No Longer Mee Route: IV, Drug [facility] 2015 [facility] form: INJ, Q4H, Dosing Weight 85.909, kg, PRN as needed for nausea/vomiting , Start date: 06/13/16 10:58:00 [facility], Duration: 30 day, Stop date: 07/13/16 10:57:00 CSTNotes: (Same as: Zofran) MEDICATION WASTE Product Size: 4 mg Product Wasted: _0__ mg Dilaudid 1 mg, 0.5 mL, No Longer Mee Route: IVP, Active 2015 [facility] Drug form: INJ, Q3H, Dosing Weight 85.455, kg, PRN Pain Score 7-10, Priority: Routine, Start date: 06/13/16 6:08:00 [facility] [facility], Duration: 30 day, Stop date: 07/13/16 6:07:00 CSTNotes: Same as Dilaudid D5NS 1,000 mL 1,000 mL, Rate: No Longer Mee 125 ml/hr, Active 2015 [facility] Infuse over: 8 hr, Route: IV, Dosing Weight 85.455 kg, Total Volume: 1,000, Start date: 06/13/16 5:56:00 [facility], Duration: 30 day, Stop date: 07/13/16 5:55:00 [facility] Saline Flush 0.9% 10 ml, Route: Inactive Mee IVP, Drug Form: [address] [place] [address] INJ, Dosing Weight 85.455, kg, PRN, PRN Line Flush, Start date: 06/13/16 5:56:00 [facility], Duration: 30 day, Stop date: 07/13/16 5:55:00 [facility] Phenergan 25 mg, 1 mL, No Longer Mee Route: IVPB, Active [address] [place] [address] Q4H, Dosing Weight 85.455, kg, PRN Nausea, Priority: STAT, Start date: 06/13/16 5:56:00 [facility], Duration: 30 day, Stop date: 07/13/16 5:55:00 CSTNotes: Do not give IV push. (Same as: Phenergan) Sodium Chloride 1,000 mL, Rate: Inactive Mee 0.154 MEQ/ML 100 ml/hr, [address] [place] [address] Injectable Infuse over: Solution 10.1 hr, Route: IV, Dosing Weight 85.455 kg, Total Volume: 1,011.2, Start date: 06/13/16 5:02:00 [facility], Duration: 1 doses or times, Stop date: 06/13/16 15:07:00 [facility] Thiamine 100 mg, 1 mL, Inactive Mee Route: IV, [address] [place] [address] ONCE, Dosing Weight 85.455, kg, Priority: STAT, Start date: 06/13/16 5:02:00 [facility], Stop date: 06/13/16 5:02:00 CSTNotes: (Same As: Vitamin B1) Dilaudid 0.5 mg, 0.25 Inactive Mee mL, Route: IVP, [address] [place] [address] Drug form: INJ, ONCE, Dosing Weight 85.455, kg, Priority: STAT, Start date: 06/13/16 5:01:00 [facility] [facility], Stop date: 06/13/16 5:01:00 CSTNotes: Same as Dilaudid Sodium Chloride 25 mL, Route: No Longer Mee 0.9% IV IV, Start date: Active [address] [place] [address] 06/13/16 2:09:00 [facility], Duration: 30 day, Stop date: 07/13/16 2:08:00 [facility], PRN Line Flush Lactated Ringers 1,000 mL, Rate: Inactive Mee 1,000 mL 999 ml/hr, 2015 [facility] Infuse over: 1 hr, Route: IV, Dosing Weight 85.455 kg, Total Volume: 1,000, Start date: 06/13/16 2:07:00 [facility] [facility], Duration: 1 doses or times, Stop date: 06/13/16 3:06:00 [facility] Ondansetron 4 mg, 2 mL, Inactive Mee Route: IVP, 2016 [facility] Drug form: INJ, ONCE, Dosing Weight 85.455, kg, Priority: STAT, Start date: 06/13/16 2:07:00 [facility] [facility], Stop date: 06/13/16 2:07:00 CSTNotes: (Same as: Sugey) MEDICATION WASTE Product Size: 4 mg Product Wasted: ___ mg Hydromorphone 0.5 mg, 0.25 Inactive Mee mL, Route: IVP, 2015 [facility] Drug form: INJ, ONCE, Dosing Weight 85.455, kg, Priority: STAT, Start date: 06/13/16 2:07:00 [place], Stop date: 06/13/16 2:07:00 CSTNotes: Same as Dilaudid pantoprazole 40 mg, Route: Inactive Mee IVP, Drug form: [address] [place] [address] INJ, ONCE, Dosing Weight 85.455, kg, For IV push reconstitute with 10 ml 0.9% sodium chloride and push over at least 3 minutes, Priority: STAT, Start date: 06/13/16 2:07:00 [place], Stop date: 06/13/16 2:07:00 [place] [facility] Saline Flush 0.9% 10 mL, Route: No Longer Mee IVP, Drug Form: Active [address] [place] [address] INJ, Dosing Weight 85.455, kg, PRN, PRN Line Flush, Start date: 06/13/16 2:07:00 [place], Duration: 30 day, Stop date: 07/13/16 2:06:00 CSTNotes: (Same as: BD Posiflush) Allergies, Adverse Reactions, Alerts Substance Category Reaction Severity Reaction Status Date Comments Source type Reported Immunizations Immunization Date Site Status Last Comments Source Given Updated tuberculin Right mid completed Maxi EUFEMIA Caban purified protein 7 forearm [facility] derivative influenza virus Not Given Mee vaccine, 7 Hospital inactivated diphtheria/pertus Left completed Nancy EUFEMIA Caban sis, acel/tetanus [address] [facility] adult pneumococcal Right completed Suzy Caban 23-valent vaccine 6 [facility] Results Order Name Results Value Reference Date Interpretation Comments Source Range CHEM PANEL eGFR 110 09/10 Result Comment: The eGFR is calculated using the CKD-EPI formula. In most young, healthy individuals the eGFR will be >90 mL/ min/1.73m2. The eGFR declines with age. An eGFR of 60-89 may be normal in Mee mL/min/1. some populations, particularly the elderly, for whom the CKD-EPI formula has not been extensively validated. Use of the eGFR is not recommended in the following populations: Hospital 3m2 Individuals with unstable creatinine concentrations, including patients and those with serious co-morbid conditions. Patients with extremes in muscle mass or diet. The data above are obtained from the National Kidney Disease Education Program (NKDEP) which additionally recommends that when the eGFR is used in patients with extremes of body mass index for purposes of drug dosing, the eGFR should be multiplied by the estimated BMI. CHEM PANEL Albumin Lvl 2.6 g/dL 3.5 - 5.0 09/10 [facility] CHEM PANEL ALT 71 unit/L 0 - 65 09/10 [facility] CHEM PANEL Total 5.7 g/dL 6.4 - 8.4 09/10 [facility] CHEM PANEL Calcium Lvl 7.9 mg/dL 8.5 - 10.5 09/10 [facility] CHEM PANEL Alk Phos 180 unit/L 39 - 136 09/10 [facility] CHEM PANEL Bili Total 0.8 mg/dL 0.2 - 1.3 09/10 [facility] CHEM PANEL AST 117 unit/L 0 - 37 09/10 [facility] CHEM PANEL Potassium 4.2 meq/L 3.5 - 5.1 09/10 [facility] CHEM PANEL Chloride Lvl 103 meq/L 95 - 109 09/10 [facility] CHEM PANEL CO2 25 meq/L 24 - 32 09/10 [facility] CHEM PANEL Creatinine 0.69 mg/dL 0.50 - 09/10 [facility] 1[facility]40 [facility] CHEM PANEL BUN 4 mg/dL 7 - 22 09/10 [facility] CHEM PANEL Glucose Lvl 84 mg/dL 70 - 99 09/10 [facility] CHEM PANEL Sodium Lvl 139 meq/L 135 - 145 09/10 [facility] CHEM PANEL B/C Ratio 6 6 - 25 09/10 [facility] CHEM PANEL Globulin 3.1 g/dL 2.7 - 4.2 09/10 [facility] CHEM PANEL AGAP 15.2 meq/L 10.0 - 09/[address] [facility] CHEM PANEL A/G Ratio 0.8 0.7 - 1.6 09/10 [facility] HEMATOLOGY Segs-Bands # 1.8 K/CMM 1.5 - 8.1 09/10 [facility] HEMATOLOGY Lymphocytes 0.6 K/CMM 1.0 - 5.5 09/10 [facility] HEMATOLOGY Monocytes # 0.4 K/CMM 0.0 - 0.8 09/10 [facility] HEMATOLOGY Eosinophils 0.1 K/CMM 0.0 - 0.5 09/10 [facility] HEMATOLOGY Segs 61.6 % 45.0 - 09/10 [facility] 75[facility]0 [facility] HEMATOLOGY Lymphocytes 19.6 % 20.0 - 09/10 [facility] 40[facility]0 [facility] HEMATOLOGY Monocytes 13.9 % 2.0 - 12.0 09/10 [facility] HEMATOLOGY Eosinophils 3.8 % 0.0 - 4.0 09/10 [facility] HEMATOLOGY Basophils 1.1 % 0.0 - 1.0 09/10 [facility] HEMATOLOGY RBC 3.37 M/CMM 4.70 - 09/10 [facility] 6.10 [facility] HEMATOLOGY MCV 100.0 fL 80.0 - 09/10 [facility] 94[facility]0 [facility] HEMATOLOGY MCHC 33.3 g/dL 32.0 - 09/10 [facility] 36[facility]0 [facility] HEMATOLOGY Hct 33.7 % 42.0 - 09/10 [facility] 54[facility]0 [facility] HEMATOLOGY Hgb 11.2 g/dL 14.0 - 09/10 [facility] 18[facility]0 [facility] HEMATOLOGY MCH 33.4 pg 27.0 - 09/[address] [facility] HEMATOLOGY Platelet 106 K/CMM 133 - 450 09/10 [facility] HEMATOLOGY RDW 16.3 % 11.5 - 09/10 [facility] 14[facility]5 [facility] HEMATOLOGY MPV 8.3 fL 7.4 - 10.4 09/10 [facility] HEMATOLOGY WBC 3.0 K/CMM 3.7 - 10.4 09/10 [facility] CHEM PANEL eGFR 118 09/09 Result Comment: The eGFR is calculated using the CKD-EPI formula. In most young, healthy individuals the eGFR will be >90 mL/ min/1.73m2. The eGFR declines with age. An eGFR of 60-89 may be normal in mL/min/1.7 some populations, particularly the elderly, for whom the CKD-EPI formula has not been extensively validated. Use of the eGFR is not recommended in the following populations: [address] Individuals with unstable creatinine concentrations, including patients and those with serious co-morbid conditions. Patients with extremes in muscle mass or diet. The data above are obtained from the National Kidney Disease Education Program (NKDEP) which additionally recommends that when the eGFR is used in patients with extremes of body mass index for purposes of drug dosing, the eGFR should be multiplied by the estimated BMI. CHEM PANEL AST 97 unit/L 0 - 37 09/09 [facility] CHEM PANEL Alk Phos 170 unit/L 39 - 136 09/09 [facility] CHEM PANEL Bili Total 0.8 mg/dL 0.2 - 1.3 09/09 [facility] CHEM PANEL Total 5.5 g/dL 6.4 - 8.4 09/09 [facility] CHEM PANEL Albumin Lvl 2.7 g/dL 3.5 - 5.0 09/09 [facility] CHEM PANEL ALT 66 unit/L 0 - 65 09/09 [facility] CHEM PANEL Sodium Lvl 139 meq/L 135 - 145 09/09 [facility] CHEM PANEL Potassium 4.0 meq/L 3.5 - 5.1 09/09 [facility] CHEM PANEL CO2 25 meq/L 24 - 32 09/09 [facility] CHEM PANEL Chloride Lvl 103 meq/L 95 - 109 09/09 [facility] CHEM PANEL Calcium Lvl 7.6 mg/dL 8.5 - 10.5 09/09 [facility] CHEM PANEL Creatinine 0.58 mg/dL 0.50 - 09/09 [facility] Lvl 1.40 /2016 [facility] CHEM PANEL BUN 3 mg/dL 7 - 22 09/09 [facility] CHEM PANEL Glucose Lvl 99 mg/dL 70 - 99 09/09 [facility] CHEM PANEL B/C Ratio 5 6 - 25 09/09 [facility] CHEM PANEL AGAP 15.0 meq/L 10.0 - 09/09 [facility] 20[facility]0 [facility] CHEM PANEL A/G Ratio 1.0 0.7 - 1.6 09/09 [facility] CHEM PANEL Globulin 2.8 g/dL 2.7 - 4.2 09/09 [facility] HEMATOLOGY Platelet 96 K/CMM 133 - 450 09/09 [facility] HEMATOLOGY MPV 8.2 fL 7.4 - 10.4 09/09 [facility] HEMATOLOGY MCV 99.4 fL 80.0 - 09/09 [facility] 94[facility]0 [facility] HEMATOLOGY Hct 32.9 % 42.0 - 09/09 [facility] 54[facility]0 [facility] HEMATOLOGY RDW 16.6 % 11.5 - 09/09 [facility] 14[facility]5 [facility] HEMATOLOGY MCH 33.2 pg 27.0 - 09/09 [facility] 31[facility]0 [facility] HEMATOLOGY MCHC 33.5 g/dL 32.0 - 09/09 [facility] 36[facility]0 [facility] HEMATOLOGY Hgb 11.0 g/dL 14.0 - 09/09 [facility] 18[facility]0 [facility] HEMATOLOGY RBC 3.32 M/CMM 4.70 - 09/09 [facility] 6.10 [facility] HEMATOLOGY WBC 3.8 K/CMM 3.7 - 10.4 09/09 [facility] HEMATOLOGY Segs 65.0 % 45.0 - 09/09 [facility] 75[facility]0 [facility] HEMATOLOGY Lymphocytes 19.7 % 20.0 - 09/09 [facility] 40[facility]0 [facility] HEMATOLOGY Monocytes 10.4 % 2.0 - 12.0 09/09 [facility] HEMATOLOGY Eosinophils 0.2 K/CMM 0.0 - 0.5 09/[address] [facility] HEMATOLOGY Monocytes # 0.4 K/CMM 0.0 - 0.8 09/09 [facility] HEMATOLOGY Segs-Bands # 2.5 K/CMM 1.5 - 8.1 09/09 [facility] HEMATOLOGY Lymphocytes 0.7 K/CMM 1.0 - 5.5 09/09 [facility] HEMATOLOGY Eosinophils 4.0 % 0.0 - 4.0 09/09 [facility] HEMATOLOGY Basophils 0.9 % 0.0 - 1.0 09/09 [facility] CHEM PANEL Creatinine 0.58 mg/dL 0.50 - 09/08 [facility] 1[facility]40 [facility] CHEM PANEL Sodium Lvl 138 meq/L 135 - 145 09/08 [facility] CHEM PANEL BUN 1 mg/dL 7 - 22 09/08 [facility] CHEM PANEL Glucose Lvl 104 mg/dL 70 - 99 09/08 [facility] CHEM PANEL Potassium 3.8 meq/L 3.5 - 5.1 09/08 [facility] CHEM PANEL Chloride Lvl 103 meq/L 95 - 109 09/08 [facility] CHEM PANEL CO2 23 meq/L 24 - 32 09/08 [facility] CHEM PANEL AGAP 15.8 meq/L 10.0 - 09/08 20.0 [facility] CHEM PANEL Calcium Lvl 7.7 mg/dL 8.5 - 10.5 09/08 [facility] CHEM PANEL B/C Ratio 2 6 - 25 09/08 [facility] CHEM PANEL Albumin Lvl 2.9 g/dL 3.5 - 5.0 09/08 [facility] CHEM PANEL Alk Phos 192 unit/L 39 - 136 09/08 [facility] CHEM PANEL AST 119 unit/L 0 - 37 09/08 [facility] CHEM PANEL Bili Total 1.1 mg/dL 0.2 - 1.3 09/08 [facility] CHEM PANEL Total 5.9 g/dL 6.4 - 8.4 09/08 [facility] CHEM PANEL Globulin 3.0 g/dL 2.7 - 4.2 09/08 [facility] CHEM PANEL ALT 60 unit/L 0 - 65 09/08 [facility] CHEM PANEL A/G Ratio 1.0 0.7 - 1.6 09/08 [facility] CHEM PANEL eGFR 118 09/08 Result Comment: The eGFR is calculated using the CKD-EPI formula. In most young, healthy individuals the eGFR will be >90 mL/ min/1.73m2. The eGFR declines with age. An eGFR of 60-89 may be normal in mL/min/1.7 some populations, particularly the elderly, for whom the CKD-EPI formula has not been extensively validated. Use of the eGFR is not recommended in the following populations: [address] Individuals with unstable creatinine concentrations, including patients and those with serious co-morbid conditions. Patients with extremes in muscle mass or diet. The data above are obtained from the National Kidney Disease Education Program (NKDEP) which additionally recommends that when the eGFR is used in patients with extremes of body mass index for purposes of drug dosing, the eGFR should be multiplied by the estimated BMI. HEMATOLOGY RBC 3.45 M/CMM 4.70 - 09/08 [facility] 6[facility]10 [facility] HEMATOLOGY WBC 3.4 K/CMM 3.7 - 10.4 09/08 [facility] HEMATOLOGY Hgb 11.6 g/dL 14.0 - 09/08 [facility] 18[facility]0 [facility] HEMATOLOGY MPV 8.1 fL 7.4 - 10.4 09/08 [facility] HEMATOLOGY Platelet 73 K/CMM 133 - 450 09/08 [facility] HEMATOLOGY MCH 33.5 pg 27.0 - 09/08 [facility] 31[facility]0 [facility] HEMATOLOGY RDW 16.3 % 11.5 - 09/08 [facility] 14[facility]5 [facility] HEMATOLOGY MCHC 34.0 g/dL 32.0 - 09/08 [facility] 36[facility]0 [facility] HEMATOLOGY MCV 98.5 fL 80.0 - 09/08 [facility] 94[facility]0 [facility] HEMATOLOGY Hct 34.0 % 42.0 - 09/08 [facility] 54.0 [facility] HEMATOLOGY Eosinophils 0.1 K/CMM 0.0 - 0.5 09/08 [facility] # [facility] HEMATOLOGY Monocytes # 0.3 K/CMM 0.0 - 0.8 09/[address] [facility] HEMATOLOGY Basophils 0.8 % 0.0 - 1.0 09/[address] [facility] HEMATOLOGY Lymphocytes 1.0 K/CMM 1.0 - 5.5 09/08 [facility] # [facility] HEMATOLOGY Segs-Bands # 1.9 K/CMM 1.5 - 8.1 09/[address] [facility] HEMATOLOGY Eosinophils 4.4 % 0.0 - 4.0 09/[address] [facility] HEMATOLOGY Monocytes 10.1 % 2.0 - 12.0 09/08 [facility] HEMATOLOGY Segs 56.4 % 45.0 - 09/[address] [facility] HEMATOLOGY Lymphocytes 28.3 % 20.0 - 09/[address] [facility] CHEM PANEL Magnesium 1.9 mg/dL 1.8 - 2.4 09/07 [facility] IMMUNOLOGY Hep A IgM Negative Negative 09/07 [facility] *NA* (09/06/16 6:11 PM) IMMUNOLOGY Hep B Core Negative Negative 09/07 [facility] *NA* (09/06/16 6:11 PM) IMMUNOLOGY Hep Bs Ag Negative Negative 09/07 [facility] *NA* (09/06/16 6:11 PM) IMMUNOLOGY Hep C Ab Negative 09/07 [facility] *NA* (09/06/16 6:11 PM) IMMUNOLOGY HIV 1/2 Ab Negative Negative 09/07 [facility] *NA* (09/06/16 6:11 PM) CHEM PANEL Magnesium 1.7 mg/dL 1.8 - 2.4 09/06 [facility] CHEM PANEL Phosphorus 3.5 mg/dL 2.5 - 4.5 09/06 [facility] CHEM PANEL Phosphorus 1.6 mg/dL 2.5 - 4.5 09/06 [facility] CHEM PANEL Magnesium 1.0 mg/dL 1.8 - 2.4 09/[address] [facility] CHEM PANEL Lipase Lvl 66 unit/L 73 - 393 09/06 [facility] CHEM PANEL Amylase Lvl 33 unit/L 25 - 115 09/06 [facility] HEMATOLOGY Large Plt Moderate None Seen 09/06 Hospital *ABN* (09/05/16 6:30 PM) HEMATOLOGY RBC Morph Normal 09/06 Hospital (09/05/16 6:30 PM) CHEM PANEL Globulin 3.1 g/dL 2.7 - 4.2 08/09 [facility] CHEM PANEL A/G Ratio 1.0 0.7 - 1.6 08/09 [facility] CHEM PANEL B/C Ratio 9 6 - 25 08/09 [facility] CHEM PANEL eGFR 129 08/09 Result Comment: The eGFR is calculated using the CKD-EPI formula. In most young, healthy individuals the eGFR will be >90 mL/ min/1.73m2. The eGFR declines with age. An eGFR of 60-89 may be normal in mL/min/1.7 some populations, particularly the elderly, for whom the CKD-EPI formula has not been extensively validated. Use of the eGFR is not recommended in the following populations: [facility] 3m2 Individuals with unstable creatinine concentrations, including patients and those with serious co-morbid conditions. Patients with extremes in muscle mass or diet. The data above are obtained from the National Kidney Disease Education Program (NKDEP) which additionally recommends that when the eGFR is used in patients with extremes of body mass index for purposes of drug dosing, the eGFR should be multiplied by the estimated BMI. CHEM PANEL Bili Total 0.9 mg/dL 0.2 - 1.3 08/09 [facility] CHEM PANEL Alk Phos 125 unit/L 39 - 136 08/09 [facility] CHEM PANEL AGAP 14.0 meq/L 10.0 - 08/09 20.0 [facility] CHEM PANEL AST 109 unit/L 0 - 37 08/09 [facility] CHEM PANEL ALT 78 unit/L 0 - 65 08/09 [facility] CHEM PANEL Total 6.2 g/dL 6.4 - 8.4 08/09 [facility] CHEM PANEL Calcium Lvl 8.1 mg/dL 8.5 - 10.5 08/09 [facility] CHEM PANEL Albumin Lvl 3.1 g/dL 3.5 - 5.0 08/09 [facility] CHEM PANEL CO2 25 meq/L 24 - 32 08/09 [facility] CHEM PANEL Chloride Lvl 101 meq/L 95 - 109 08/09 [facility] CHEM PANEL Potassium 4.0 meq/L 3.5 - 5.1 08/09 [facility] CHEM PANEL Sodium Lvl 136 meq/L 135 - 145 08/09 [facility] CHEM PANEL Creatinine 0.46 mg/dL 0.50 - 08/09 [facility] 1[facility]40 [facility] CHEM PANEL BUN 4 mg/dL 7 - 22 08/09 [facility] CHEM PANEL Glucose Lvl 108 mg/dL 70 - 99 08/09 [facility] CHEM PANEL Lipase Lvl 327 unit/L 73 - 393 08/09 [facility] HEMATOLOGY Hgb 10.1 g/dL 14.0 - 08/09 [facility] 18[facility]0 [facility] HEMATOLOGY RBC 3.04 M/CMM 4.70 - 08/09 [facility] 6.10 [facility] HEMATOLOGY WBC 3.0 K/CMM 3.7 - 10.4 08/09 [facility] HEMATOLOGY MCH 33.1 pg 27.0 - 08/09 [facility] 31[facility]0 [facility] HEMATOLOGY MCV 96.3 fL 80.0 - 08/09 [facility] 94[facility]0 [facility] HEMATOLOGY Hct 29.3 % 42.0 - 08/09 [facility] 54.0 [facility] HEMATOLOGY MPV 8.0 fL 7.4 - 10.4 08/09 [facility] HEMATOLOGY MCHC 34.3 g/dL 32.0 - 08/09 [facility] 36.0 [facility] HEMATOLOGY Platelet 100 K/CMM 133 - 450 08/09 [facility] HEMATOLOGY RDW 15.7 % 11.5 - 08/09 [facility] 14[facility]5 [facility] CHEM PANEL Magnesium 2.1 mg/dL 1.8 - 2.4 08/08 [facility] CHEM PANEL eGFR 121 08/08 Result Comment: The eGFR is calculated using the CKD-EPI formula. In most young, healthy individuals the eGFR will be >90 mL/ min/1.73m2. The eGFR declines with age. An eGFR of 60-89 may be normal in mL/min/1.7 some populations, particularly the elderly, for whom the CKD-EPI formula has not been extensively validated. Use of the eGFR is not recommended in the following populations: [address] Individuals with unstable creatinine concentrations, including patients and those with serious co-morbid conditions. Patients with extremes in muscle mass or diet. The data above are obtained from the National Kidney Disease Education Program (NKDEP) which additionally recommends that when the eGFR is used in patients with extremes of body mass index for purposes of drug dosing, the eGFR should be multiplied by the estimated BMI. CHEM PANEL BUN 4 mg/dL 7 - 22 08/08 [facility] CHEM PANEL Sodium Lvl 137 meq/L 135 - 145 08/08 [facility] CHEM PANEL Glucose Lvl 105 mg/dL 70 - 99 08/08 [facility] CHEM PANEL Calcium Lvl 7.9 mg/dL 8.5 - 10.5 08/08 [facility] CHEM PANEL AGAP 13.6 meq/L 10.0 - 08/08 [facility] 20[facility] CHEM PANEL CO2 26 meq/L 24 - 32 08/08 [facility] CHEM PANEL Chloride Lvl 101 meq/L 95 - 109 08/08 [facility] CHEM PANEL Potassium 3.6 meq/L 3.5 - 5.1 08/08 [facility] CHEM PANEL Creatinine 0.55 mg/dL 0.50 - 08/08 [facility] 1[facility]40 [facility] CHEM PANEL Lipase Lvl 554 unit/L 73 - 393 08/08 [facility] HEMATOLOGY WBC 2.8 K/CMM 3.7 - 10.4 08/08 [facility] HEMATOLOGY RBC 3.33 M/CMM 4.70 - 08/08 [facility] 6.10 [facility] HEMATOLOGY Hgb 10.9 g/dL 14.0 - 08/08 [facility] 18[facility]0 [facility] HEMATOLOGY Hct 32.0 % 42.0 - 08/08 [facility] 54[facility]0 [facility] HEMATOLOGY MCV 96.1 fL 80.0 - 02 94.0 [facility] HEMATOLOGY MCH 32.8 pg 27.0 - 02 31.0 [facility] HEMATOLOGY MCHC 34.1 g/dL 32.0 - 02 36.0 [facility] HEMATOLOGY RDW 15.2 % 11.5 - 02 14.5 [facility] HEMATOLOGY Platelet 66 K/CMM 133 - 450 08/08 [facility] HEMATOLOGY MPV 7.6 fL 7.4 - 10.4 08/08 [facility] CHEM PANEL ALT 42 unit/L 0 - 65 08/07 [facility] CHEM PANEL Albumin Lvl 3.2 g/dL 3.5 - 5.0 08/07 [facility] CHEM PANEL Total 6.7 g/dL 6.4 - 8.4 08/07 [facility] CHEM PANEL Bili Total 1.5 mg/dL 0.2 - 1.3 08/07 [facility] CHEM PANEL Bili Direct 0.6 mg/dL 0.0 - 0.3 08/07 [facility] CHEM PANEL Alk Phos 133 unit/L 39 - 136 08/07 [facility] CHEM PANEL AST 75 unit/L 0 - 37 08/07 [facility] CHEM PANEL Globulin 3.5 g/dL 2.7 - 4.2 08/07 [facility] CHEM PANEL Bili 0.9 mg/dL 0.0 - 1.0 08/07 [facility] CHEM PANEL A/G Ratio 0.9 0.7 - 1.6 08/07 [facility] CHEM PANEL Lipase Lvl 755 unit/L 73 - 393 08/07 [facility] CHEM PANEL Glucose Lvl 92 mg/dL 70 - 99 08/07 [facility] CHEM PANEL BUN 4 mg/dL 7 - 22 08/07 [facility] CHEM PANEL Creatinine 0.57 mg/dL 0.50 - 02 [facility] Lvl 1.40 /2016 [facility] CHEM PANEL Sodium Lvl 134 meq/L 135 - 145 08/07 [facility] CHEM PANEL Potassium 3.0 meq/L 3.5 - 5.1 08/07 Result Comment: Hospital Critical Result(s) called to Suzette Llamas RN at 08/07/2016 06:33 by SB. Read back OK. CHEM PANEL eGFR 119 08/07 Result Comment: The eGFR is calculated using the CKD-EPI formula. In most young, healthy individuals the eGFR will be >90 mL/ min/1.73m2. The eGFR declines with age. An eGFR of 60-89 may be normal in [facility] mL/min/1.7 some populations, particularly the elderly, for whom the CKD-EPI formula has not been extensively validated. Use of the eGFR is not recommended in the following populations: [facility] 3m2 Individuals with unstable creatinine concentrations, including patients and those with serious co-morbid conditions. Patients with extremes in muscle mass or diet. The data above are obtained from the National Kidney Disease Education Program (NKDEP) which additionally recommends that when the eGFR is used in patients with extremes of body mass index for purposes of drug dosing, the eGFR should be multiplied by the estimated BMI. CHEM PANEL Chloride Lvl 95 meq/L 95 - 109 08/07 [facility] CHEM PANEL Calcium Lvl 7.9 mg/dL 8.5 - 10.5 08/07 [facility] CHEM PANEL CO2 23 meq/L 24 - 32 08/07 [facility] CHEM PANEL AGAP 19.0 meq/L 10.0 - 08/07 20.0 [facility] CHEM PANEL Phosphorus 2.1 mg/dL 2.5 - 4.5 08/07 [facility] CHEM PANEL Magnesium 1.7 mg/dL 1.8 - 2.4 08/07 [facility] CHEM PANEL Alk Phos 126 unit/L 39 - 136 08/06 [facility] CHEM PANEL Bili Total 1.8 mg/dL 0.2 - 1.3 08/06 [facility] CHEM PANEL AST 62 unit/L 0 - 37 08/06 [facility] CHEM PANEL ALT 36 unit/L 0 - 65 08/06 [facility] CHEM PANEL Albumin Lvl 3.2 g/dL 3.5 - 5.0 08/06 [facility] CHEM PANEL Total 6.6 g/dL 6.4 - 8.4 08/06 [facility] CHEM PANEL B/C Ratio 10 6 - 25 08/06 [facility] CHEM PANEL A/G Ratio 0.9 0.7 - 1.6 08/06 [facility] CHEM PANEL Globulin 3.4 g/dL 2.7 - 4.2 08/06 [facility] CHEM PANEL Phosphorus 1.3 mg/dL 2.5 - 4.5 08/06 Result Comment: Hospital Critical Result(s) called to Margaret at 08/06/2016 05:03_ by kala tanner_. Read back OK. CHEM PANEL Magnesium 1.7 mg/dL 1.8 - 2.4 08/06 [facility] HEMATOLOGY MPV 7.9 fL 7.4 - 10.4 08/06 [facility] HEMATOLOGY WBC 4.0 K/CMM 3.7 - 10.4 08/06 [facility] HEMATOLOGY RBC 3.11 M/CMM 4.70 - 08/06 [facility] 6[facility]10 [facility] HEMATOLOGY Hgb 10.4 g/dL 14.0 - 08/06 [facility] 18[facility]0 [facility] HEMATOLOGY Hct 29.4 % 42.0 - 08/06 [facility] 54.0 [facility] HEMATOLOGY Platelet 36 K/CMM 133 - 450 08/06 [facility] HEMATOLOGY MCH 33.3 pg 27.0 - 08/06 [facility] 31.0 [facility] HEMATOLOGY MCHC 35.3 g/dL 32.0 - 08/06 [facility] 36.0 [facility] HEMATOLOGY MCV 94.5 fL 80.0 - 08/06 [facility] 94[facility]0 [facility] HEMATOLOGY RDW 15.4 % 11.5 - 02 [facility] 14.5 [facility] HEMATOLOGY Monocytes # 0.4 K/CMM 0.0 - 0.8 08/06 [facility] HEMATOLOGY Segs 71.9 % 45.0 - 02 [facility] 75.0 [facility] HEMATOLOGY Lymphocytes 17.2 % 20.0 - 02 [facility] 40.0 [facility] HEMATOLOGY Eosinophils 1.2 % 0.0 - 4.0 08/06 Hospital HEMATOLOGY Segs-Bands # 2.9 K/CMM 1.5 - 8.1 02/ [facility] HEMATOLOGY Monocytes 9.2 % 2.0 - 12.0 08/[address] [facility] HEMATOLOGY Basophils 0.5 % 0.0 - 1.[address] [facility] HEMATOLOGY Lymphocytes 0.7 K/CMM 1.0 - 5.5 08/06 [facility] # [facility] CARDIAC Troponin-I null 0.00 - [address] [facility] CARDIAC Total CK 285 unit/L 12 - 191 08/[address] [facility] CARDIAC CK MB 1.8 ng/mL 0.5 - 3.6 08/[address] [facility] CARDIAC CK MB Index 0.6 0.0 - 2.5 08/[address] [facility] CHEM PANEL B/C Ratio 10 6 - 25 08/05 [facility] HEMATOLOGY PT 14.3 s 12.0 - 02 [facility] 14.7 [facility] HEMATOLOGY INR 1.09 0.85 - 08/05 [facility] 1.17 [facility] HEMATOLOGY PTT 33.1 s 22.9 - [address] [facility] HEMATOLOGY Monocytes # 0.5 K/CMM 0.0 - 0.8 08/[address] [facility] HEMATOLOGY Segs 75.8 % 45.0 - 02 Mee 75.0 /2016 [facility] HEMATOLOGY Lymphocytes 14.6 % 20.0 - 02/ [facility] 40.0 [facility] HEMATOLOGY Monocytes 8.9 % 2.0 - 12.0 08/[address] [facility] HEMATOLOGY Eosinophils 0.2 % 0.0 - 4.0 02/ [facility] HEMATOLOGY Segs-Bands # 3.8 K/CMM 1.5 - 8.1 08/[address] [facility] HEMATOLOGY Basophils 0.5 % 0.0 - 1.0 08/[address] [facility] HEMATOLOGY Lymphocytes 0.7 K/CMM 1.0 - 5.5 08/[address] [facility] TOXICOLOGY Ethanol Lvl 148 mg/dL 08/[address] [facility] TOXICOLOGY Etoh (%) 0.148 % 08/[address] [facility] Abdomen 2 Abdomen 2 Procedure: Abdominal Radiographs. 08/05 [facility] views DX views DX /2017 - Hospital Clinical Indication: Epigastric and left-sided abdominal pain, previous fall. Read by: Teodoro Vivar MD Dictated Date/time: 08/05/16 08:34 Electronically Signed by: Teodoro Vivar MD 08/05/16 08:36 FINAL REPORT Comparison: CT scan of the abdomen and pelvis 07/23/2016. FINDINGS: Radiographs of the abdomen, 2 views, demonstrate a nonspecific bowel gas pattern with a few loops of dilated small bowel in the central abdomen. No free intraperitoneal air is observed and no pathologic calcifications are identified. Degenerative change involves the lumbosacral spine. IMPRESSION: 1. Nonspecific bowel gas pattern, minimal ileus cannot be entirely excluded. SL:[id number] Facial bone Facial bone Patient Name: DANNI BIRMINGHAM. 08/05 [facility] wo contrast wo contrast /2017 - Hospital CT CT : 1965; Age: 50 years y/o; Male. MR: [id number]. Read by: Christopher Aguirre MD Dictated Date/time: 08/05/16 07:02 Ordering Physician: Juvenal Dasilva DO. Electronically Signed by : Christopher Aguirre MD 08/05/16 07:[address] MAXILLOFACIAL WITHOUT CONTRAST: HISTORY: Fall with facial injury, pain and swelling. COMPARISON: None. FINDINGS: CT maxillofacial was performed utilizing contiguous 2 mm transaxial sections without intravenous contrast. Coronal and sagittal reformatted images were obtained. No evidence of fracture involving the orbits, nasal bones, maxillofacial osseous architecture or mandible. Bilateral temporomandibular joints are intact. Globes, optic nerves and extraocular muscles are unremarkable bilaterally. Left forehead, periorbital and maxillofacial soft tissue hematoma suspected. Minimal opacification of bilateral anterior ethmoid air cells noted. Minimal right and mild left maxillary sinus mucosal thickening noted. IMPRESSION: 1. No evidence of fracture involving the orbits, nasal bones, maxillofacial osseous architecture or mandible. Bilateral temporomandibular joints are intact. 2. Left forehead, periorbital and maxillofacial soft tissue hematoma. SL: [id number] Brain w Brain w I have reviewed this examination and concur with the interpretation. 08/05 [facility] contrast CT contrast CT /2017 - Hospital Clinical Indication: Headache with Trauma Comparison: 07/23/2016 Read by: Ricardo Aaron MD Dictated Date/time: 08/05/16 06:57 Electronically Signed by: Ricardo Aaron MD 08/05/16 06:59 FINAL REPORT TECHNIQUE: CT images were obtained from the foramen magnum to the vertex without the use of intravenous contrast on a multidetector CT. Coronal and sagittal reconstructions were obtained. - - CT radiation dose DLP: [id number] mGy-cm Read by: Sandip Villegas DO Dictated Date/time: 08/05/16 06:35 Electronically Signed by: Sandip Villegas DO 08/05/16 06:44 FINAL REPORT FINDINGS: BRAIN PARENCHYMA: Subcentimeter old lacunar infarct right insular cortex region. There are otherwise normal norris-white interfaces, sulci and gyri. There are no focal mass lesions on this noncontra st head CT. There is no mass effect, midline shift or edema. There are no intra-axial or extra-axial fluid collections, intraventricular or intraparenchymal hemorrhage. The pineal, sellar, brainstem, ce rebellum and skull base regions appear unremarkable. VENTRICLES: The lateral ventricles, third and fourth ventricles appear unremarkable. The basilar cisterns are normal. ORBITS, MASTOIDS AND PARANASAL SINUSES: . Mildly mucoperiosteal thickening left maxillary sinus. Slight opacification of the ethmoid air cells bilaterally. The visualized orbits and paranasal sinuses are otherwise unremarkable. The mastoid air cells are unopacified. SKULL: There are no osseous abnormalities. Right posterior parietal extracranial soft tissue swelling/edema with surgical clips. If there is further concern for intracranial pathology or acute stroke, MRI of the brain may be performed for complete assessment. IMPRESSION: 1. 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 This is unchanged. 2. Right posterior parietal extracranial soft tissue swelling/edema with surgical clips. The swelling was there on the prior study. 3. Mildly mucoperiosteal thickening left maxillary sinus. This is similar to the prior study. 4. Slight opacification of the ethmoid air cells bilaterally. SL: OSENROSALINDUM-PC Spine Spine CT CERVICAL SPINE WITHOUT CONTRAST DATED 08/05/2016. 08/05 - Mee cervical wo cervical wo /2016 - Hospital contrast CT contrast CT CLINICAL INDICATION: Posttraumatic cervical pain. Fall. Read by: Ricardo Aaron MD Dictated Date/time: 08/05/16 06:38 Electronically Signed by: Ricardo Aaron MD 08/05/16 06:41 FINAL REPORT COMPARISON: 07/23/2016 TECHNIQUE: A CT of the cervical spine was performed using thin slice noncontrast axial images with subsequent sagittal and coronal reconstruction. CT radiation dose: WAC=463 mGy-cm FINDINGS: There is no CT evidence of acute cervical vertebral fracture. Cervical alignment, vertebral body height and intervertebral disc space height are maintained. Degenerative changes are noted in the vertebr al endplates at multiple levels there is no evidence of cervical canal stenosis or cervical cord compression. No significant prevertebral soft tissue swelling or paravertebral hematoma formation is identified. IMPRESSION: 1. No CT evidence of acute cervical vertebral fracture. SL:131 DRUG SCREEN U Amph Scr Negative Negative 07/23 [facility] *NA* (07/23/16 2:11 PM) DRUG SCREEN U Swati Scr Negative Negative 07/[address] [facility] *NA* (07/23/16 2:11 PM) DRUG SCREEN U Benzodia Negative Negative 07[facility] *NA* (07/23/16 2:11 PM) DRUG SCREEN U Cocaine Negative Negative 07/23 [facility] *NA* (07/23/16 2:11 PM) DRUG SCREEN U Cannab Scr Negative Negative 07/[address] [facility] *NA* (07/23/16 2:11 PM) DRUG SCREEN U Opiate Scr Positive Negative 07/[address] [facility] *ABN* (07/23/16 2:11 PM) DRUG SCREEN U Phencyc Negative Negative 07/23 [facility] *NA* (07/23/16 2:11 PM) DRUG SCREEN UDS Note See Note 07/[address] [facility] (07/23/16 2:11 PM) URINE AND UA <=1.0 0.1 - 1.0 07/23 [facility] Urobilinogen mg/dL [facility] URINE AND UA Sq Epi None Seen 07/[address] [facility] URINE AND UA Leuk Est Negative Negative 07/[address] [facility] (07/23/16 2:11 PM) URINE AND UA Nitrite Negative Negative 07/23 [facility] (07/23/16 2:11 PM) URINE AND UA Blood Negative Negative 07/23 [facility] (07/23/16 2:11 PM) URINE AND UA Color Light Yellow Yellow 07/[address] [facility] *NA* (07/23/16 2:11 PM) URINE AND UA Glucose Negative Negative 07/23 [facility] mg/dL mg/dL [facility] URINE AND UA Bili Negative Negative 07/[address] [facility] *NA* (07/23/16 2:11 PM) URINE AND UA Ketones Negative Negative 07/23 [facility] mg/dL mg/dL [facility] URINE AND UA Spec Grav 1.023 <=1.030 07/[address] [facility] URINE AND UA Protein Negative Negative 07/23 [facility] mg/dL mg/dL [facility] URINE AND UA pH 7.0 5.0 - 8.0 07/[address] [facility] URINE AND UA Turbidity Clear Clear 07/[address] [facility] (07/23/16 2:11 PM) CHEM PANEL Globulin 4.2 g/dL 2.7 - 4.2 07/23 [facility] CHEM PANEL B/C Ratio 10 6 - 25 07/[address] [facility] CHEM PANEL A/G Ratio 0.9 0.7 - 1.6 07/[address] [facility] CHEM PANEL AGAP 16.1 meq/L 10.0 - 07/[facility] [address] CHEM PANEL eGFR 104 07/23 Result Comment: The eGFR is calculated using the CKD-EPI formula. In most young, healthy individuals the eGFR will be >90 mL/ min/1.73m2. The eGFR declines with age. An eGFR of 60-89 may be normal in mL/min/1.7 some populations, particularly the elderly, for whom the CKD-EPI formula has not been extensively validated. Use of the eGFR is not recommended in the following populations: Hospital 3m2 Individuals with unstable creatinine concentrations, including patients and those with serious co-morbid conditions. Patients with extremes in muscle mass or diet. The data above are obtained from the National Kidney Disease Education Program (NKDEP) which additionally recommends that when the eGFR is used in patients with extremes of body mass index for purposes of drug dosing, the eGFR should be multiplied by the estimated BMI. CHEM PANEL Sodium Lvl 144 meq/L 135 - 145 07/23 Hospital CHEM PANEL Creatinine 0.78 mg/dL 0.50 - 07/23 [facility] Lvl 1.40 [facility] CHEM PANEL BUN 8 mg/dL 7 - 22 07/23 Hospital CHEM PANEL Glucose Lvl 110 mg/dL 70 - 99 07/23 Hospital CHEM PANEL CO2 28 meq/L 24 - 32 07/23 Hospital CHEM PANEL Chloride Lvl 104 meq/L 95 - 109 07/23 Hospital CHEM PANEL Potassium 4.1 meq/L 3.5 - 5.1 07/23 [facility] CHEM PANEL Albumin Lvl 3.9 g/dL 3.5 - 5.0 07/23 Hospital CHEM PANEL Total 8.1 g/dL 6.4 - 8.4 07/23 Hospital CHEM PANEL Bili Total 0.3 mg/dL 0.2 - 1.3 07/23 Hospital CHEM PANEL Calcium Lvl 8.3 mg/dL 8.5 - 10.5 07/23 Hospital CHEM PANEL AST 106 unit/L 0 - 37 07/23 Hospital CHEM PANEL Alk Phos 129 unit/L 39 - 136 07/23 Hospital CHEM PANEL ALT 109 unit/L 0 - 65 07/23 Hospital CHEM PANEL Lipase Lvl 62 unit/L 73 - 393 07/23 Hospital HEMATOLOGY MPV 6.6 fL 7.4 - 10.4 07/23 Hospital HEMATOLOGY WBC 4.2 K/CMM 3.7 - 10.4 07/23 Hospital HEMATOLOGY Hct 44.1 % 42.0 - 07/23 [facility] 54.0 [facility] HEMATOLOGY Hgb 14.8 g/dL 14.0 - 07/23 [facility] 18.0 [facility] HEMATOLOGY MCH 31.3 pg 27.0 - 07/23 [facility] 31.0 [facility] HEMATOLOGY MCV 93.4 fL 80.0 - 07/23 [facility] 94.0 [facility] HEMATOLOGY Platelet 374 K/CMM 133 - 450 07/23 [facility] HEMATOLOGY RDW 17.2 % 11.5 - 07/23 [facility] 14.5 [facility] HEMATOLOGY MCHC 33.5 g/dL 32.0 - 07/23 [facility] 36.0 [facility] HEMATOLOGY RBC 4.72 M/CMM 4.70 - 07/23 [facility] 6.10 [facility] HEMATOLOGY Lymphocytes 30.8 % 20.0 - 07/23 [facility] 40.0 [facility] HEMATOLOGY Segs 58.4 % 45.0 - 07/23 [facility] 75.0 [facility] HEMATOLOGY Eosinophils 2.7 % 0.0 - 4.0 07/23 [facility] HEMATOLOGY Basophils 1.9 % 0.0 - 1.0 07/23 [facility] HEMATOLOGY Monocytes 6.2 % 2.0 - 12.0 07/23 [facility] HEMATOLOGY Lymphocytes 1.3 K/CMM 1.0 - 5.5 07/23 [facility] # Hospital HEMATOLOGY Monocytes # 0.3 K/CMM 0.0 - 0.8 07/23 [facility] HEMATOLOGY Eosinophils 0.1 K/CMM 0.0 - 0.5 07/23 [facility] # Hospital HEMATOLOGY Basophils # 0.1 K/CMM 0.0 - 0.2 07/[address] [facility] HEMATOLOGY Segs-Bands # 2.5 K/CMM 1.5 - 8.1 07/23 Hospital TOXICOLOGY Etoh (%) 0.388 % 07/23 [facility] TOXICOLOGY Ethanol Lvl 388 mg/dL 07/23 Result Comment: Hospital Critical Result(s) called to MELODIE JOHANSEN at 07/23/2016 12:25_ byHARI. Read back OK. Pelvis AP Pelvis AP DX AP pelvis. 07/23 - - Hospital INDICATION: Pelvic pain after fall today. Read by: Eric Watson MD Dictated Date/time: 07/23/16 12:53 Electronically Signed by: Eric Watson MD 07/23/16 12:54 FINAL REPORT FINDINGS: No priors for comparison. No acute pelvic fractures seen. Visualized portions of the hips are intact on this single projection study. Visualized portions of sacral foramina are intact. Overlying contrast partially obscures visualization. IMPRESSION: No acute pelvic fracture. SL: [id number] Chest 1view Chest 1view 1 VIEW CXR. PORTABLE EXAM 12:41 PM 07/23 [facility] DX DX /2016 - Hospital HISTORY: Chest pain. Patient experienced a syncopal episode and fell. Read by: Tarun Michael MD Dictated Date/time: 07/23/16 12:53 Electronically Signed by: Tarun Michael MD 07/23/16 12:54 FINAL REPORT COMPARISON: No relevant priors available. The heart, lungs and mediastinum are normal for portable technique. Bones appear intact. IMPRESSION: Normal exam. END OF IMPRESSION SL: [id number] Spine Spine CT CERVICAL SPINE 07/23 [facility] cervical wo cervical wo /2016 - Hospital contrast CT contrast CT Clinical Indication: Neck pain after trauma; Read by: Josesito Oliva MD Dictated Date/time: 07/23/16 12:36 Comparison: None. Electronically Signed by: Josesito Oliva MD 07/23/16 12:39 FINAL REPORT Technique: Helical scan of the cervical spine was performed. Images are reviewed in [address] radiation dose DLP: 445 mGy-cm FINDINGS: ALIGNMENT AND GENERAL ASSESSMENT: Normal cervical alignment with no fracture or subluxation. Normal craniocervical junction. Lateral masses of C1 and C2 are properly aligned. Normal appearance of posterior elements and spinous processes. DISK SPACES AND SOFT TISSUES: The prevertebral soft tissues are normal. No definite disc abnormality from C2 through T1. No suggestion of significant spinal stenosis or foraminal stenosis. LUNG APICES: Unremarkable. IMPRESSION: 1. No acute finding. SL: [id number] Brain wo Brain wo ADDENDUM: 07/[address] contrast CT /2016 - [facility] I have reviewed this examination and concur with the interpretation. Read by: Tarun Michael MD Dictated Date/time: 07/23/16 13:20 Electronically Signed by: Tarun Michael MD 07/23/16 13:[address] head without contrast. - - Indication: Syncope today falling hitting back of head. Read by: Eric Watson MD Dictated Date/time: 07/23/16 12:31 Electronically Signed by: Eric Watson MD 07/23/16 12:35 FINAL REPORT Comparison: 07/08/2016 CT head. Technique: Noncontrast CT head was performed from the skull base to the vertex at 3 mm slice collimation. 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 Ventricles are normal in size and nearly symmetric. Norris-white matter differentiation is preserved. There is no evidence of midline shift. No intra or extra-axial fluid collections are present. No increased density is present to suggest acute hemorrhage. No evidence for acute ischemic infarct or cerebral mass. Mild mucosal thickening seen of both maxillary sinuses and minimally of ethmoid air cells. Remaining visualized paranasal sinuses and mastoid air cells are clear. Right posterior parietal scalp soft tissue swelling and gas present. There are no depressed skull fractures identified. Impression: Right posterior parietal scalp soft tissue swelling. No evidence of acute intracranial hemorrhage or skull fractures. SL: [id number] Facial bone Facial bone Maxillofacial CT without contrast. 07/23 [facility] contrast wo contrast /2017 - [facility] CT CT INDICATION: Syncope today following hitting head. Read by: Eric Watson MD Dictated Date/time: 07/23/16 12:35 Electronically Signed by: Eric Watson MD 07/23/16 12:41 FINAL REPORT COMPARISON: 07/08/[address] TECHNIQUE: Noncontrast CT of the face is performed with thin cut axial and coronal reconstructions from frontal bone to mandible. FINDINGS: Orbital sandhu are intact. No nasal bone fracture is seen. No acute facial fractures identified. Visualized portions of the mandible are intact. Visualized portions of the upper cervical spine are intact. Mucosal thickening seen in both maxillary sinuses with possible polyps or retention cysts on the left. Minimal ethmoid air cell mucosal thickening present. Visualized portions of mastoid air cells are aerated. Normal round morphology of the globes identified. Mild left frontal scalp soft tissue swelling is present and possibly on the right. IMPRESSION: No CT evidence for acute facial fractures. SL: [id number] ED ED Procedure: CT Abdomen/Pelvis with IV Contrast. 07/23 - [facility] Abdomen/Pel Abdomen/Pelv /2017 - Hospital vis IV is IV contrast contrast only CT only CT Clinical Indication: Mid upper abdominal pain post syncope and fall. Read by: Teodoro Vivar MD Dictated Date/time: 07/23/16 12:31 Electronically Signed by: Teodoro Vivar MD 07/23/16 12:40 FINAL REPORT Comparison: CT scan of the abdomen and pelvis 06/13/2016. TECHNIQUE: Sequential trans-axial images were obtained with a multi- detector helical CT after intravenous administration of 100 cc Visipaque 320 iodinated contrast. Coronal and sagittal reconstructions were obtained. No oral contrast was used for the exam. Total CT radiation dose: NSJ=4578 mGy-cm FINDINGS: CT ABDOMEN WITH IV CONTRAST: VISUALIZED LUNG BASES: There is minimal dependent subsegmental atelectasis at the posterior lung bases. The heart is maintained however coronary artery calcifications are noted. ABDOMINAL SOLID ORGANS: The liver demonstrates diminished attenuation consistent with fatty infiltration. The pancreas is atrophic, with persistent dilatation of the distal pancreatic duct in the tail t he pancreas. There is minimal right hydronephrosis and slight dilatation of the proximal right ureter. No ureteral calculi are identified. The left kidney, adrenal glands and gallbladder are unremarkable. NON-CONTRAST OPACIFIED STOMACH AND BOWEL: The noncontrast opacified stomach is grossly unremarkable. The non-contrast opacified loops of small bowel and colon the abdomen appear grossly unremarkable on CT. The lack of orally administered contrast material limits complete bowel evaluation. The patient appears of had previous gastric bypass procedure. The appendix is unremarkable. PERITONEUM AND RETROPERITONEUM: There is no abdominal lymphadenopathy. There is no pneumoperitoneum or ascites. The retroperitoneal region appears unremarkable. VASCULAR STRUCTURES: Calcific atherosclerosis involves the abdominal aorta and iliac vessels. Prominent venous structures are noted in the left upper quadrant similar to the prior study. A possible shun t near the splenic hilum cannot be entirely excluded. CT PELVIS WITH IV CONTRAST: PERITONEUM AND EXTRAPERITONEAL REGIONS: There is no pelvic lymphadenopathy or ascites. The inguinal regions are unremarkable. The prostate gland and seminal vesicles are unremarkable. BLADDER: The bladder appears unremarkable. OSSEOUS STRUCTURES: Degenerative change involves the lumbosacral spine. There is a grade 1 spondylolisthesis of L5 on S1. No acute displaced fracture is observed. IMPRESSION: 1. Fatty infiltration of the liver. 2. Pancreatic atrophy with a dilated distal pancreatic duct. 3. Minimal right hydronephrosis of uncertain etiology. 4. Previous gastric bypass procedure. 5. Calcific atherosclerosis with prominent venous structures in the left upper quadrant. 6. Degenerative change. SL:[id number] ELECTROLYTE AGAP 14.9 meq/L 10.0 - 07/14 [facility] ELECTROLYTE eGFR 107 07/14 Result Comment: The eGFR is calculated using the CKD-EPI formula. In most young, healthy individuals the eGFR will be > 90 mL/min/1.73m2. The eGFR declines with age. An eGFR of 60-89 may be normal in [facility] mL/min/1.7 some populations, particularly the elderly, for whom the CKD-EPI formula has not been extensively validated. Use of the eGFR is not recommended in the following populations: [address] Individuals with unstable creatinine concentrations, including patients and those with serious co-morbid conditions. Patients with extremes in muscle mass or diet. The data above are obtained from the National Kidney Disease Education Program (NKDEP) which additionally recommends that when the eGFR is used in patients with extremes of body mass index for purposes of drug dosing, the eGFR should be multiplied by the estimated BMI. ELECTROLYTE Potassium 3.9 meq/L 3.5 - 5.1 07/14 [facility] ELECTROLYTE Sodium Lvl 135 meq/L 135 - 145 07/14 Hospital ELECTROLYTE Calcium Lvl 8.7 mg/dL 8.5 - 10.5 07/14 Hospital ELECTROLYTE Chloride Lvl 99 meq/L 95 - 109 07/14 Hospital ELECTROLYTE CO2 25 meq/L 24 - 32 07/14 Hospital ELECTROLYTE Creatinine 0.73 mg/dL 0.50 - 07/14 [facility]2016 Hospital ELECTROLYTE Glucose Lvl 97 mg/dL 70 - 99 07/14 Hospital ELECTROLYTE BUN 8 mg/dL 7 - 22 07/14 [facility] HEMATOLOGY MPV 7.1 fL 7.4 - 10.4 07/14 [facility] HEMATOLOGY Platelet 137 K/CMM 133 - 450 07/14 [facility] HEMATOLOGY RBC 3.93 M/CMM 4.70 - 07/14 [facility] 6.10 [facility] HEMATOLOGY Hgb 12.3 g/dL 14.0 - 07/14 [facility] 18.0 [facility] HEMATOLOGY MCV 90.7 fL 80.0 - 07/14 [facility] 94.0 [facility] HEMATOLOGY Hct 35.6 % 42.0 - 07/14 [facility] 54.0 [facility] HEMATOLOGY RDW 16.4 % 11.5 - 07/14 [facility] 14.5 [facility] HEMATOLOGY MCHC 34.5 g/dL 32.0 - 07/14 [facility] 36.0 [facility] HEMATOLOGY MCH 31.3 pg 27.0 - 07/14 [facility] 31.0 [facility] HEMATOLOGY WBC 5.1 K/CMM 3.7 - 10.4 07/14 Hospital HEMATOLOGY Lymphocytes 0.9 K/CMM 1.0 - 5.5 07/14 [facility] HEMATOLOGY Monocytes # 0.8 K/CMM 0.0 - 0.8 07/14 Hospital HEMATOLOGY Eosinophils 0.1 K/CMM 0.0 - 0.5 07/14 [facility] HEMATOLOGY Segs 63.6 % 45.0 - 07/14 [facility] 75.0 [facility] HEMATOLOGY Monocytes 14.8 % 2.0 - 12.0 07/14 Hospital HEMATOLOGY Lymphocytes 18.6 % 20.0 - 07/14 [facility] 40.0 [facility] HEMATOLOGY Segs-Bands # 3.2 K/CMM 1.5 - 8.1 07/14 Hospital HEMATOLOGY Basophils 0.8 % 0.0 - 1.0 07/14 Hospital HEMATOLOGY Eosinophils 2.2 % 0.0 - 4.0 07/14 Hospital CHEM PANEL B/C Ratio 9 6 - 25 07/14 Hospital CHEM PANEL AST 71 unit/L 0 - 37 07/14 Hospital CHEM PANEL Alk Phos 118 unit/L 39 - 136 07/14 Hospital CHEM PANEL Bili Total 0.7 mg/dL 0.2 - 1.3 07/14 Hospital CHEM PANEL AGAP 13.5 meq/L 10.0 - 07/14 20.0 Hospital CHEM PANEL eGFR 106 07/14 Result Comment: The eGFR is calculated using the CKD-EPI formula. In most young, healthy individuals the eGFR will be >90 mL/ min/1.73m2. The eGFR declines with age. An eGFR of 60-89 may be normal in mL/min/1.7 some populations, particularly the elderly, for whom the CKD-EPI formula has not been extensively validated. Use of the eGFR is not recommended in the following populations: Hospital 3m2 Individuals with unstable creatinine concentrations, including patients and those with serious co-morbid conditions. Patients with extremes in muscle mass or diet. The data above are obtained from the National Kidney Disease Education Program (NKDEP) which additionally recommends that when the eGFR is used in patients with extremes of body mass index for purposes of drug dosing, the eGFR should be multiplied by the estimated BMI. CHEM PANEL ALT 99 unit/L 0 - 65 07/14 Hospital CHEM PANEL Albumin Lvl 3.3 g/dL 3.5 - 5.0 07/14 Hospital CHEM PANEL CO2 28 meq/L 24 - 32 07/14 Hospital CHEM PANEL Calcium Lvl 8.5 mg/dL 8.5 - 10.5 07/14 Hospital CHEM PANEL Total 6.9 g/dL 6.4 - 8.4 07/14 Hospital CHEM PANEL Globulin 3.6 g/dL 2.7 - 4.2 07/14 Hospital CHEM PANEL A/G Ratio 0.9 0.7 - 1.6 07/14 Hospital CHEM PANEL Creatinine 0.75 mg/dL 0.50 - 07/14 Lvl 1.40 Hospital CHEM PANEL Sodium Lvl 139 meq/L 135 - 145 07/14 Hospital CHEM PANEL Potassium 4.5 meq/L 3.5 - 5.1 07/14 l Hospital CHEM PANEL Chloride Lvl 102 meq/L 95 - 109 07/14 Hospital CHEM PANEL BUN 7 mg/dL 7 - 22 07/14 Hospital CHEM PANEL Glucose Lvl 95 mg/dL 70 - 99 07/14 Hospital Temporomand Temporomandi Procedure: Temporomandibular joint radiographs. 07/13 - [facility] ibular bular joint /2016 - Hospital joint uni uni DX DX HISTORY: Right-sided temporomandibular joint pain. Read by: Teodoro Irving MD Dictated Date/time: 07/13/16 15:18 Electronically Signed by: Teodoro Vivar MD 07/13/16 15:21 FINAL REPORT COMPARISON: Facial bone CT 07/08/2016. Radiographs of the temporomandibular joints including open and closed mouth views appear grossly normal. There is anterior subluxation of the mandibular condyles in relation to the glenoid fossas on the open-mouth view. No definitive dislocation is observed and no acute displaced fracture is identified. IMPRESSION: No acute abnormality observed. SL:[id number] CHEM PANEL Phosphorus 2.8 mg/dL 2.5 - 4.5 07/11 Hospital CHEM PANEL Magnesium 1.6 mg/dL 1.8 - 2.4 07/11 Hospital CHEM PANEL Lipase Lvl 216 unit/L 73 - 393 07/11 Hospital CHEM PANEL Albumin Lvl 2.9 g/dL 3.5 - 5.0 07/11 Hospital CHEM PANEL Alk Phos 114 unit/L 39 - 136 07/11 Hospital CHEM PANEL ALT 83 unit/L 0 - 65 07/11 Hospital CHEM PANEL AST 113 unit/L 0 - 37 07/11 Hospital CHEM PANEL Total 6.2 g/dL 6.4 - 8.4 07/11 Hospital CHEM PANEL Calcium Lvl 8.4 mg/dL 8.5 - 10.5 07/11 Hospital CHEM PANEL CO2 29 meq/L 24 - 32 07/11 Hospital CHEM PANEL Chloride Lvl 94 meq/L 95 - 109 07/11 Hospital CHEM PANEL Potassium 3.6 meq/L 3.5 - 5.1 07/11 l Hospital CHEM PANEL Sodium Lvl 134 meq/L 135 - 145 07/11 Hospital CHEM PANEL Creatinine 0.71 mg/dL 0.50 - 07/11 Lvl 1.40 /2016 Hospital CHEM PANEL BUN 7 mg/dL 7 - 22 07/11 Hospital CHEM PANEL Glucose Lvl 128 mg/dL 70 - 99 07/11 Hospital CHEM PANEL eGFR 109 07/11 Result Comment: The eGFR is calculated using the CKD-EPI formula. In most young, healthy individuals the eGFR will be >90 mL/ min/1.73m2. The eGFR declines with age. An eGFR of 60-89 may be normal in mL/min/1.7 some populations, particularly the elderly, for whom the CKD-EPI formula has not been extensively validated. Use of the eGFR is not recommended in the following populations: Hospital 3m2 Individuals with unstable creatinine concentrations, including patients and those with serious co-morbid conditions. Patients with extremes in muscle mass or diet. The data above are obtained from the National Kidney Disease Education Program (NKDEP) which additionally recommends that when the eGFR is used in patients with extremes of body mass index for purposes of drug dosing, the eGFR should be multiplied by the estimated BMI. CHEM PANEL Bili Total 1.1 mg/dL 0.2 - 1.3 07/11 [facility] CHEM PANEL Globulin 3.3 g/dL 2.7 - 4.2 07/11 [facility] CHEM PANEL B/C Ratio 10 6 - 25 07/11 [facility] CHEM PANEL A/G Ratio 0.9 0.7 - 1.6 07/11 Hospital CHEM PANEL AGAP 14.6 meq/L 10.0 - 07/11 20.0 Hospital HEMATOLOGY Eosinophils 0.1 K/CMM 0.0 - 0.5 07/11 # Hospital HEMATOLOGY Monocytes 8.8 % 2.0 - 12.0 07/11 Hospital HEMATOLOGY Lymphocytes 12.5 % 20.0 - 07/11 [facility] 40.0 [facility] HEMATOLOGY Segs 75.2 % 45.0 - 07/11 75.0 Hospital HEMATOLOGY Eosinophils 3.1 % 0.0 - 4.0 07/11 Hospital HEMATOLOGY Monocytes # 0.4 K/CMM 0.0 - 0.8 07/11 Hospital HEMATOLOGY Lymphocytes 0.5 K/CMM 1.0 - 5.5 07/11 [facility] # /2016 Hospital HEMATOLOGY Segs-Bands # 3.1 K/CMM 1.5 - 8.1 07/11 [facility] HEMATOLOGY Basophils 0.4 % 0.0 - 1.0 07/11 [facility] HEMATOLOGY WBC 4.1 K/CMM 3.7 - 10.4 07/[address] [facility] HEMATOLOGY RBC 3.72 M/CMM 4.70 - 07/11 [facility] 6.10 Hospital HEMATOLOGY MCV 89.5 fL 80.0 - 07/11 [facility] 94.0 Hospital HEMATOLOGY Hct 33.3 % 42.0 - 07/11 [facility] 54.0 [facility] HEMATOLOGY Hgb 11.6 g/dL 14.0 - 07/11 [facility] 18.0 [facility] HEMATOLOGY MCHC 35.0 g/dL 32.0 - 07/11 [facility] 36.0 [facility] HEMATOLOGY MCH 31.3 pg 27.0 - 07/11 [facility] 31.0 [facility] HEMATOLOGY Platelet 58 K/CMM 133 - 450 07/[address] [facility] HEMATOLOGY RDW 16.1 % 11.5 - 07/11 [facility] 14.5 Hospital HEMATOLOGY MPV 8.7 fL 7.4 - 10.4 07/[address] [facility] PARATHYROID Ca Norm WB 1.11 .05 - 07/11 [facility] PROFILE mMol/L 07.24 Hospital PARATHYROID Ca Ion WB 1.07 . - 07/11 [facility] PROFILE mMol/L 07.24 Hospital CHEM PANEL Phosphorus 3.0 mg/dL 2.5 - 4.5 07/[address] [facility] CHEM PANEL Magnesium 1.8 mg/dL 1.8 - 2.4 07/[address] [facility] PARATHYROID Ca Ion WB 1.04 . - 07/11 M[facility] PROFILE mMol/L 07.24 [facility] PARATHYROID Ca Norm WB 1.09 1. - 07/11 [facility] PROFILE mMol/L 07.24 [facility] PARATHYROID Ca Norm WB 1.02 . - 07/10 [facility] PROFILE mMol/L 07.24 Hospital PARATHYROID Ca Ion WB 0.97 . - 07/10 [facility] PROFILE mMol/L 1.25 Hospital URINE AND UA Sq Epi None Seen 07/10 [facility] URINE AND UA pH 7.0 5.0 - 8.0 07/[address] [facility] URINE AND UA Spec Grav 1.015 <=1.030 07/[address] [facility] URINE AND UA Turbidity Clear Clear 07/[address] [facility] (07/10/16 10:09 AM) URINE AND UA Color Yellow Yellow 07/10 [facility] *NA* (07/10/16 10:09 AM) URINE AND UA Ketones 20 mg/dL Negative 07/10 [facility] mg/dL [facility] URINE AND UA Glucose Negative Negative 07/10 [facility] mg/dL mg/dL [facility] URINE AND UA Protein Negative Negative 07/10 [facility] mg/dL mg/dL [facility] URINE AND UA Nitrite Negative Negative 07/[address] [facility] (07/10/16 10:09 AM) URINE AND UA 4.0 mg/dL 0.1 - 1.0 07/10 [facility] Urobilinogen /2016 [facility] URINE AND UA Blood Negative Negative 07/[address] [facility] (07/10/16 10:09 AM) URINE AND UA Bili Negative Negative 07/[address] [facility] *NA* (07/10/16 10:09 AM) URINE AND UA WBC null 0 - 5 07/[address] [facility] URINE AND UA Leuk Est Negative Negative 07/[address] [facility] (07/10/16 10:09 AM) URINE AND UA RBC 1 /HPF 0 - 2 07/[address] [facility] URINE AND UA Mucus Few /LPF None Seen 07/10 [facility] STOOL /LPF /2016 Hospital CHEM PANEL Magnesium 1.5 mg/dL 1.8 - 2.4 07/[address] [facility] CHEM PANEL Lipase Lvl 372 unit/L 73 - 393 07/[address] [facility] CHEM PANEL ALT 79 unit/L 0 - 65 07/[address] [facility] CHEM PANEL A/G Ratio 0.8 0.7 - 1.6 07/10 [facility] CHEM PANEL Globulin 3.3 g/dL 2.7 - 4.2 07/10 Hospital CHEM PANEL Albumin Lvl 2.8 g/dL 3.5 - 5.0 07/10 [facility] CHEM PANEL Total 6.1 g/dL 6.4 - 8.4 07/10 [facility] CHEM PANEL Bili Total 1.1 mg/dL 0.2 - 1.3 07/10 [facility] CHEM PANEL Alk Phos 114 unit/L 39 - 136 07/10 [facility] CHEM PANEL B/C Ratio 14 6 - 25 07/10 [facility] CHEM PANEL AST 109 unit/L 0 - 37 07/10 [facility] CHEM PANEL Phosphorus 2.3 mg/dL 2.5 - 4.5 07/10 [facility] HEMATOLOGY Monocytes # 0.3 K/CMM 0.0 - 0.8 07/10 [facility] HEMATOLOGY Eosinophils 0.2 K/CMM 0.0 - 0.5 07/[address] [facility] HEMATOLOGY Segs-Bands # 2.7 K/CMM 1.5 - 8.1 07/10 [facility] HEMATOLOGY Lymphocytes 0.6 K/CMM 1.0 - 5.5 07/[address] [facility] HEMATOLOGY Basophils 0.5 % 0.0 - 1.0 07/10 [facility] HEMATOLOGY Monocytes 7.5 % 2.0 - 12.0 07/10 [facility] HEMATOLOGY Eosinophils 3.9 % 0.0 - 4.0 07/10 [facility] HEMATOLOGY Segs 71.3 % 45.0 - 07/10 [facility] 75.0 [facility] HEMATOLOGY Lymphocytes 16.8 % 20.0 - 07/10 [facility] 40.0 [facility] HEMATOLOGY Plt Morph Normal 07/10 [facility] (07/10/16 5:13 AM) HEMATOLOGY RBC Morph Normal 07/10 [facility] (07/10/16 5:13 AM) HEMATOLOGY WBC 3.9 K/CMM 3.7 - 10.4 07/10 [facility] HEMATOLOGY Hct 33.9 % 42.0 - 07/10 [facility] 54.0 [facility] HEMATOLOGY RDW 16.2 % 11.5 - 07/[address] [facility] HEMATOLOGY Platelet 45 K/CMM 133 - 450 07/10 [facility] HEMATOLOGY MPV 7.9 fL 7.4 - 10.4 07/10 [facility] HEMATOLOGY MCHC 34.3 g/dL 32.0 - 07/[address] [facility] HEMATOLOGY RBC 3.70 M/CMM 4.70 - 07/[address] [facility] HEMATOLOGY Hgb 11.6 g/dL 14.0 - 07/[address] [facility] HEMATOLOGY MCV 91.6 fL 80.0 - 07/[address] [facility] HEMATOLOGY MCH 31.4 pg 27.0 - 07/[address] [facility] CHEM PANEL Lipase Lvl 648 unit/L 73 - 393 07/09 [facility] BACTERIAL - MRSA by PCR Negative 07/08 Hospital (07/08/16 5:44 PM) HEMATOLOGY Pat Od Value 0.586 07/08 [facility] HEMATOLOGY Pos CO Value 0.452 07/08 [facility] HEMATOLOGY Heparin Positive 1 Negative 07/08 Result [facility] Ab(LINDA) Comment: Hospital *CRIT* Critical Result(s) (07/08/16 5:44 PM) called to Asmita Mercado at 07/09/2016 13:53 by . Read back OK. DRUG SCREEN U Benzodia Negative Negative 07/08 Hospital *NA* (07/08/16 5:07 AM) DRUG SCREEN U Cocaine Negative Negative 07/08 Hospital *NA* (07/08/16 5:07 AM) DRUG SCREEN U Swati Scr Negative Negative 07/08 Hospital *NA* (07/08/16 5:07 AM) DRUG SCREEN U Amph Scr Negative Negative 07/08 Hospital *NA* (07/08/16 5:07 AM) DRUG SCREEN U Phencyc Negative Negative 07/08 Hospital *NA* (07/08/16 5:07 AM) DRUG SCREEN U Cannab Scr Negative Negative 07/08 [facility] *NA* (07/08/16 5:07 AM) DRUG SCREEN U Opiate Scr Negative Negative 07/08 [facility] *NA* (07/08/16 5:07 AM) DRUG SCREEN UDS Note See Note 07/[address] [facility] *NA* (07/08/16 5:07 AM) URINE AND UA Color Natalie Yellow 07/08 [facility] *ABN* (07/08/16 5:07 AM) URINE AND UA Turbidity Slight Clear 07/08 [facility] *ABN* (07/08/16 5:07 AM) URINE AND UA Sq Epi Occasional Few /LPF 07/08 [facility]OOL /LPF [facility] URINE AND UA WBC 1 /HPF 0 - 5 07/[address] [facility] URINE AND UA RBC 19 /HPF 0 - 2 07/[address] URINE AND UA Bacteria Occasional None Seen [facility]2016 [facility] URINE AND UA Mucus Many /LPF None Seen 07/08 [facility] STOOL /LPF [facility] URINE AND UA Spec Grav 1.020 <=1.030 07/08 [facility] URINE AND UA pH 6.0 5.0 - 8.0 07/08 [facility] URINE AND UA Protein 100 mg/dL Negative 07/08 [facility] mg/dL [facility] URINE AND UA Glucose Negative Negative 07/08 [facility] mg/dL mg/dL [facility] URINE AND UA Ketones 20 mg/dL Negative 07/08 [facility] mg/dL [facility] URINE AND UA Bili Negative Negative 07/[address] [facility] *NA* (07/08/16 5:07 AM) URINE AND UA Blood Moderate Negative 07/08 [facility] *ABN* (07/08/16 5:07 AM) URINE AND UA 2.0 mg/dL 0.1 - 1.0 07/08 [facility] Urobilinogen [facility] URINE AND UA Nitrite Negative Negative 07/08 [facility] [address] [place] [address] (07/08/16 5:07 AM) URINE AND UA Leuk Est Negative Negative 07/[address] [facility] (07/08/16 5:07 AM) URINE AND UA Hyal Cast 55 /LPF 0 - 2 07/08 [facility] HEMATOLOGY PT 12.8 s 12.0 - 07/08 [facility] 14.7 [facility] HEMATOLOGY INR 0.94 0.85 - 07/08 [facility] 1. [facility] LIPIDS CHD Risk 2.02 4.00 - 07/08 [facility] 7.30 [facility] LIPIDS HDL 125 mg/dL >=61 mg/dL 07/08 [facility] LIPIDS LDL 114 mg/dL <=99 mg/dL 07/08 [facility] (Calculated) [facility] LIPIDS VLDL 13 07/08 [facility] LIPIDS Trig 65 mg/dL <=149 07/08 [facility] mg/dL Hospital LIPIDS Chol 252 mg/dL <=199 07/08 [facility] mg/dL Hospital TOXICOLOGY Etoh (%) 0.400 % 07/08 Result Comment: Hospital Critical Result(s) called to Stephanie at 07/08/2016 04:59_ by_scarlet. Read back OK. TOXICOLOGY Ethanol Lvl 400 mg/dL 07/08 Result Comment: Hospital Critical Result(s) called to Stephanie at 07/08/2016 04:59_ by_scarlet. Read back OK. Brain wo Brain wo Clinical Indication: Pain Post Trauma trauma/fall. Left eye swelling. 07/08 - [facility] contrast CT contrast CT /2016 - Hospital Comparison: 01/05/2017 Read by: Sandip Villegas DO Dictated Date/time: 07/08/16 03:56 TECHNIQUE: CT images were obtained from the foramen magnum to the vertex without the use of intravenous contrast on a multidetector CT. Coronal and sagittal reconstructions were obtained. Electronically Signed by: Sandip Villegas DO 07/08/16 04:[address] radiation dose DLP: 1412.07 mGy-cm FINDINGS: BRAIN PARENCHYMA: Old lacunar infarct in the right subinsular cortex. Age appropriate involutionary changes with mild small vessel ischemic changes. There are otherwise normal norris-white interfaces, s ulci and gyri. There are no focal mass lesions on this noncontrast head CT. There is no mass effect, midline shift or edema. There are no intra-axial or extra-axial fluid collections, intraventricular or intraparenchymal hemorrhage. The pineal, sellar, brainstem, cerebellum and skull base regions appear unremarkable. There is subtle elliptical hyperdensity in the right anterior middle cranial fossa seen on image #17 only. This is not seen on the sagittal reformatted views and therefore is likely artifactual. VENTRICLES: The lateral ventricles, third and fourth ventricles appear unremarkable. The basilar cisterns are normal. ORBITS, MASTOIDS AND PARANASAL SINUSES: Extensive soft tissue swelling/ hematoma overlying the left orbit. Mucoperiosteal thickening with versus multiple polyposis left maxillary sinus. This could also represent hemorrhage. Mild opacification of the ethmoid air cells bilaterally suggesting sinus inflammatory disease. The visualized orbits and paranasal sinuses are otherwise unremarkable. The mastoid air cells are unopacified. SKULL: There are no osseous abnormalities. If there is further concern for intracranial pathology or acute stroke, MRI of the brain may be performed for complete assessment. IMPRESSION: 1. Age appropriate involutionary changes with mild small vessel ischemic changes. 2. Old lacunar infarct in the right subinsular cortex. 3. Mild opacification of the ethmoid air cells bilaterally suggesting sinus inflammatory disease. 4. Mucoperiosteal thickening with versus multiple polyposis left maxillary sinus. This could also represent hemorrhage. 5. Extensive soft tissue swelling/hematoma overlying the left orbit. Please refer to the CT of the facial bones for more optimal characterization of the facial bones. SL: SROSENBLUM-PC Spine Spine CT CERVICAL SPINE WITHOUT CONTRAST DATED 07/08/2016. 07/08 - [facility] cervical wo cervical - [facility] contrast CT contrast CT CLINICAL INDICATION: Posttraumatic cervical pain. Fall. Read by: Ricardo Aaron MD Dictated Date/time: 07/08/16 04:14 Electronically Signed by: Ricardo Aaron MD 07/08/16 04:19 FINAL REPORT COMPARISON: None. TECHNIQUE: A CT of the cervical spine was performed using thin slice noncontrast axial images with subsequent sagittal and coronal reconstruction. CT radiation dose: OKJ=684 mGy-cm FINDINGS: There is no CT evidence of acute cervical vertebral fracture. It is noted that T1 is only partially visualized. Cervical alignment, vertebral body height and intervertebral disc space height appear main tained on the sagittal reconstruction images. There is no evidence of cervical canal stenosis or cervical cord compression. No significant prevertebral soft tissue swelling or paravertebral hematoma formation is identified. IMPRESSION: 1. No CT evidence of acute cervical vertebral fracture. SL:[id number] Facial bone Facial bone CLINICAL INDICATION: Pain Post Trauma; trauma/fall. Left eye swelling. 07/08 - [facility] wo contrast wo contrast /2016 - [facility] CT CT COMPARISON: CT of 07/08/2016 Read by: Sandip Villegas DO Dictated Date/time: 07/08/16 04:05 Electronically Signed by: Sandip Villegas DO 07/08/16 04:13 FINAL REPORT DLP: 281.29 mGy-cm TECHNIQUE: Helical computerized tomographic images taken thru the facial region without IV contrast. Multiplanar reformats were preformed. CT Radiation Dose DLP 3265 mGy-cm FINDINGS: PARANASAL SINUSES: Moderately mucoperiosteal thickening versus multiple polyps versus hemorrhage left maxillary sinus, also obstructing left maxillary ostium. Mildly compressive thickening right max illary sinus. Paradoxical curve to the right middle turbinate. Jocelyn bullosa left middle turbinate. The visualized orbits and paranasal sinuses are otherwise unremarkable. The mastoid air cells are unopacified. SKY STRUCTURES: The cribriform plate, lateral lamella, fovea ethmoidalis , and lamina papyracea are intact. The nasal septum is midline and intact. The nasal cavity is clear. There is no facial bone fracture. MANDIBLE: The mandible and temporomandibular joints are intact. ZYGOMATIC BONE: The zygomatic bone and arch are intact. OSTEOMEATAL UNIT: Obstructed on the left. ORBITS: The visualized portions of the globes, extraocular muscles, orbital sandhu, and optic nerves are normal and symmetric in appearance. SOFT TISSUES: The soft tissues in the region of the nasopharynx are normal in thickness. SKULL AND BRAIN: The visualized portion of the skull and brain appear normal. ODONTOID PROCESS: The odontoid process is intact. IMPRESSION: 1. Unremarkable CT of the facial bones. 2. Extensive soft tissue swelling/hematoma overlying the left orbit. 3. Moderately mucoperiosteal thickening versus multiple polyps versus hemorrhage left maxillary sinus, also obstructing left maxillary ostium. Mildly compressive thickening right maxillary sinus. 4. Paradoxical curve to the right middle turbinate. Jocelyn bullosa left middle turbinate. SL: RAF-PC IMMUNOLOGY H pylori Negative Negative 06/14 [facility]ase /2015 Hospital (06/14/16 1:05 PM) CHEM PANEL Magnesium 1.8 mg/dL 1.8 - 2.4 06/[address] [facility] CHEM PANEL eGFR 99 06/14 Result Comment: The eGFR is calculated using the CKD-EPI formula. In most young, healthy individuals the eGFR will be >90 mL/ min/1.73m2. The eGFR declines with age. An eGFR of 60-89 may be normal in [facility] mL/min/1.7 some populations, particularly the elderly, for whom the CKD-EPI formula has not been extensively validated. Use of the eGFR is not recommended in the following populations: [place] [id number] Individuals with unstable creatinine concentrations, including patients and those with serious co-morbid conditions. Patients with extremes in muscle mass or diet. The data above are obtained from the National Kidney Disease Education Program (NKDEP) which additionally recommends that when the eGFR is used in patients with extremes of body mass index for purposes of drug dosing, the eGFR should be multiplied by the estimated BMI. CHEM PANEL Globulin 3.4 g/dL 2.7 - 4.2 06/14 Hospital CHEM PANEL Glucose Lvl 89 mg/dL 70 - 99 06/14 Hospital CHEM PANEL BUN 10 mg/dL 7 - 22 06/14 Hospital CHEM PANEL Creatinine 0.90 mg/dL 0.50 - 06/14 [facility] Lvl 1.40 [facility] CHEM PANEL Sodium Lvl 139 meq/L 135 - 145 06/14 Hospital CHEM PANEL Potassium 3.8 meq/L 3.5 - 5.1 06/14 [facility] L[facility] CHEM PANEL Chloride Lvl 101 meq/L 95 - 109 06/14 Hospital CHEM PANEL CO2 24 meq/L 24 - 32 06/14 Hospital CHEM PANEL AGAP 17.8 meq/L 10.0 - 06/14 20.0 Hospital CHEM PANEL Calcium Lvl 8.1 mg/dL 8.5 - 10.5 06/14 Hospital CHEM PANEL B/C Ratio 11 6 - 25 06/14 Hospital CHEM PANEL Total 7.2 g/dL 6.4 - 8.4 06/14 Hospital CHEM PANEL Albumin Lvl 3.8 g/dL 3.5 - 5.0 06/14 Hospital CHEM PANEL A/G Ratio 1.1 0.7 - 1.6 06/14 Hospital CHEM PANEL ALT 83 unit/L 0 - 65 06/14 Hospital CHEM PANEL AST 53 unit/L 0 - 37 06/14 Hospital CHEM PANEL Alk Phos 124 unit/L 39 - 136 06/14 [facility] CHEM PANEL Bili Total 1.0 mg/dL 0.2 - 1.3 06/14 Hospital HEMATOLOGY Eosinophils 0.3 K/CMM 0.0 - 0.5 06/14 [facility] # Hospital HEMATOLOGY Basophils # 0.1 K/CMM 0.0 - 0.2 06/14 Hospital HEMATOLOGY Lymphocytes 1.2 K/CMM 1.0 - 5.5 06/14 [facility] # Hospital HEMATOLOGY Monocytes # 0.4 K/CMM 0.0 - 0.8 06/14 Hospital HEMATOLOGY Segs-Bands # 4.2 K/CMM 1.5 - 8.1 06/14 Hospital HEMATOLOGY Eosinophils 4.3 % 0.0 - 4.0 06/14 Hospital HEMATOLOGY Basophils 0.9 % 0.0 - 1.0 06/14 [facility] HEMATOLOGY Monocytes 6.4 % 2.0 - 12.0 06/14 [facility] HEMATOLOGY Segs 69.1 % 45.0 - 06/14 [facility] 75.0 [facility] HEMATOLOGY Lymphocytes 19.3 % 20.0 - 06/14 [facility] 40.0 [facility] HEMATOLOGY WBC 6.0 K/CMM 3.7 - 10.4 06/14 [facility] HEMATOLOGY RBC 4.15 M/CMM 4.70 - 06/14 [facility] 6.10 [facility] HEMATOLOGY MCH 30.6 pg 27.0 - 06/14 [facility] 31.0 [facility] HEMATOLOGY Hct 38.4 % 42.0 - 06/14 [facility] 54.0 [facility] HEMATOLOGY Hgb 12.7 g/dL 14.0 - 06/[address] [facility] HEMATOLOGY MCV 92.4 fL 80.0 - 06/[address] [facility] HEMATOLOGY RDW 15.7 % 11.5 - 06/[address] [facility] HEMATOLOGY MCHC 33.1 g/dL 32.0 - 06/[address] [facility] HEMATOLOGY MPV 7.4 fL 7.4 - 10.4 06/[address] [facility] HEMATOLOGY Platelet 181 K/CMM 133 - 450 06/[address] [facility] URINE AND UA Sq Epi Occasional Few /LPF 06/13 Mee STOOL /LPF [facility] URINE AND UA Leuk Est Negative Negative 06/[address] [facility] (06/13/16 3:54 AM) URINE AND UA <=1.0 0.1 - 1.0 06/13 [facility] STOOL Urobilinogen mg/dL [facility] URINE AND UA Hyal Cast 1 /LPF 0 - 2 06/[address] [facility] URINE AND UA Mucus Few /LPF None Seen 06/13 M[facility] STOOL /LPF [facility] URINE AND UA WBC 1 /HPF 0 - 5 06/[address] [facility] URINE AND UA Protein 30 mg/dL Negative 06/13 [facility]OOL mg/dL [facility] URINE AND UA pH 5.0 5.0 - 8.0 06/[address] [facility] URINE AND UA Turbidity Clear Clear 06/[address] [facility] (06/13/16 3:54 AM) URINE AND UA Spec Grav 1.016 <=1.030 06/[address] [facility] URINE AND UA Nitrite Negative Negative 06/[address] [facility] (06/13/16 3:54 AM) URINE AND UA Bili Negative Negative 06/[address] [facility] *NA* (06/13/16 3:54 AM) URINE AND UA Blood Small Negative 06/[address] [facility] *ABN* (06/13/16 3:54 AM) URINE AND UA Glucose Negative Negative 06/13 [facility]OOL mg/dL mg/dL [facility] URINE AND UA Ketones 20 mg/dL Negative 06/13 [facility]OOL mg/dL /2015 [facility] URINE AND UA Color Light Yellow Yellow 06/13 STOOL Hospital *NA* (06/13/16 3:54 AM) CHEM PANEL Globulin 4.3 g/dL 2.7 - 4.2 06/13 [facility] CHEM PANEL A/G Ratio 1.0 0.7 - 1.6 06/13 Hospital CHEM PANEL AGAP 22.2 meq/L 10.0 - 06/[address] [facility] CHEM PANEL B/C Ratio 13 6 - 25 06/13 Hospital CHEM PANEL CO2 21 meq/L 24 - 32 06/13 [facility] CHEM PANEL Albumin Lvl 4.1 g/dL 3.5 - 5.0 06/13 [facility] CHEM PANEL Alk Phos 152 unit/L 39 - 136 06/13 [facility] CHEM PANEL Bili Total 0.5 mg/dL 0.2 - 1.3 06/13 [facility] CHEM PANEL AST 76 unit/L 0 - 37 06/13 Hospital CHEM PANEL eGFR 92 06/13 Result Comment: The eGFR is calculated using the CKD-EPI formula. In most young, healthy individuals the eGFR will be >90 mL/ min/1.73m2. The eGFR declines with age. An eGFR of 60-89 may be normal in mL/min/1.7 some populations, particularly the elderly, for whom the CKD-EPI formula has not been extensively validated. Use of the eGFR is not recommended in the following populations: [facility] 3m2 Individuals with unstable creatinine concentrations, including patients and those with serious co-morbid conditions. Patients with extremes in muscle mass or diet. The data above are obtained from the National Kidney Disease Education Program (NKDEP) which additionally recommends that when the eGFR is used in patients with extremes of body mass index for purposes of drug dosing, the eGFR should be multiplied by the estimated BMI. CHEM PANEL Creatinine 0.95 mg/dL 0.50 - 06/13 [facility] Lvl 1.40 /2015 Hospital CHEM PANEL Sodium Lvl 141 meq/L 135 - 145 06/13 Hospital CHEM PANEL Potassium 4.2 meq/L 3.5 - 5.1 06/13 [facility] Lvl /2015 [facility] CHEM PANEL BUN 12 mg/dL 7 - 22 06/13 [facility] CHEM PANEL Chloride Lvl 102 meq/L 95 - 109 06/13 [facility] CHEM PANEL ALT 113 unit/L 0 - 65 06/13 [facility] CHEM PANEL Calcium Lvl 8.3 mg/dL 8.5 - 10.5 06/13 [facility] CHEM PANEL Total 8.4 g/dL 6.4 - 8.4 06/13 Hospital CHEM PANEL Glucose Lvl 105 mg/dL 70 - 99 06/13 [facility] CHEM PANEL Lipase Lvl 45 unit/L 73 - 393 06/13 [facility] CHEM PANEL Amylase Lvl 88 unit/L 25 - 115 06/13 [facility] HEMATOLOGY RBC 5.01 M/CMM 4.70 - 06/13 [facility] 6.10 [facility] HEMATOLOGY MCV 90.6 fL 80.0 - 06/13 [facility] 94.0 [facility] HEMATOLOGY Hgb 15.5 g/dL 14.0 - 06/13 [facility] 18.0 [facility] HEMATOLOGY Hct 45.4 % 42.0 - 06/13 [facility] 54.0 [facility] HEMATOLOGY MCHC 34.1 g/dL 32.0 - 06/13 [facility] 36.0 [facility] HEMATOLOGY MCH 30.9 pg 27.0 - 06/13 [facility] 31.0 [facility] HEMATOLOGY WBC 6.4 K/CMM 3.7 - 10.4 06/13 Hospital HEMATOLOGY MPV 7.2 fL 7.4 - 10.4 06/13 [facility] HEMATOLOGY RDW 16.5 % 11.5 - 12 [facility] 14.5 [facility] HEMATOLOGY Platelet 281 K/CMM 133 - 450 06/13 [facility] HEMATOLOGY Monocytes 4.0 % 2.0 - 12.0 06/13 [facility] HEMATOLOGY Lymphocytes 33.2 % 20.0 - 12 [facility] 40.0 [facility] HEMATOLOGY Eosinophils 3.1 % 0.0 - 4.0 06/13 [facility] HEMATOLOGY Segs 58.3 % 45.0 - 12 [facility] 75.0 [facility] HEMATOLOGY Basophils 1.4 % 0.0 - 1.0 06/[address] [facility] HEMATOLOGY Segs-Bands # 3.8 K/CMM 1.5 - 8.1 06/[address] [facility] HEMATOLOGY Lymphocytes 2.1 K/CMM 1.0 - 5.5 06/13 Mee # 2016 [facility] HEMATOLOGY Monocytes # 0.3 K/CMM 0.0 - 0.8 06/13 [facility] HEMATOLOGY Eosinophils 0.2 K/CMM 0.0 - 0.5 06/13 Mee # [facility] HEMATOLOGY Basophils # 0.1 K/CMM 0.0 - 0.2 06/[address] [facility] ED ED ED Abdomen/Pelvis IV contrast only CT 06/13/2016 2:07 AM [facility] 06/13 - [facility] Abdomen/Pel Abdomen/Pelv [facility] vis IV is IV Ordering Physician:Dulce Brown MD contrast contrast only CT only CT Read by: Rigoberto Garner MD Dictated Date/time: 06/13/16 04:19 CLINICAL HISTORY: Generalized abdominal pain; nausea and vomiting; upper abdominal pain for 3 weeks; history of pancreatitis; possible dark hematemesis Electronically Signed by: Rigoberto Garner MD 04:24 FINAL REPORT COMPARISON: None TECHNIQUE: 5 mm thick axial images of the abdomen and pelvis were obtained with IV contrast. . 5 mm thick delayed axial images were obtained. Coronal and sagittal reformations were created. FINDINGS: Visualized lung bases are clear. Mild diffuse fatty infiltration of the liver is present. Pancreatic body is atrophied. Anterior tibial reveals tubular cystic dilated structure probably the major pancreatic duct. Mild bilateral perinep hric stranding is present, however no hydroureteronephrosis, renal mass, or calculus is present. Spleen and adrenal glands are normal. Ureters are normal. Bladder is partially distended. Gallbladder is present. Distal gastric surgical anastomotic staple line is present. Remaining gastrointestinal tract is grossly normal.. Appendix is normal. No mesenteric or retroperitoneal lymphadenopathy is present. No free air or free fluid is present. Bones demonstrate are normal. IMPRESSION: 1. Mild diffuse fatty infiltration of liver. 2. Pancreatic tail probably dilated major pancreatic duct. Pancreatic body mild segmental atrophy. 3. Mild bilateral perinephric stranding indicating a degree of medical renal disease. SL: SSENDOS-PC Vital Signs Vital Sign Value Date Comments Source Systolic (mm Hg) 146 09/11/2016 [facility] Diastolic (mm Hg) 94 09/11/2016 [facility] Respitory Rate 18 09/11/2016 [facility] Heart Rate 76 09/11/2016 [facility] Temperature Oral (F) 98.1 F 09/11/2016 [facility] Systolic (mm Hg) 141 09/11/2016 [facility] Diastolic (mm Hg) 96 09/11/2016 [facility] Temperature Oral (F) 98.3 F 09/11/2016 [facility] Heart Rate 77 09/11/2016 [facility] Respitory Rate 18 09/11/2016 [facility] Respitory Rate 18 09/11/2016 [facility] Systolic (mm Hg) 131 09/11/2016 [facility] Diastolic (mm Hg) 91 09/11/2016 [facility] Heart Rate 75 09/11/2016 [facility] Temperature Oral (F) 98.4 F 09/11/2016 [facility] Weight 81.818 09/06/2016 [facility] Height 180.34 cm 09/06/2016 [facility] BMI Calculated 25.16 09/06/2016 [facility] Systolic (mm Hg) 143 08/09/2016 [facility] Diastolic (mm Hg) 97 08/09/2016 [facility] Temperature Oral (F) 98.3 F 08/09/2016 [facility] Respitory Rate 18 08/09/2016 [facility] Heart Rate 90 08/09/2016 [facility] Systolic (mm Hg) 146 08/09/2016 [facility] Diastolic (mm Hg) 103 08/09/2016 [facility] Temperature Oral (F) 98.3 F 08/09/2016 [facility] Heart Rate 96 08/09/2016 [facility] Respitory Rate 18 08/09/2016 [facility] Respitory Rate 20 08/09/2016 [facility] Heart Rate 85 08/09/2016 [facility] Systolic (mm Hg) 121 08/09/2016 [facility] Diastolic (mm Hg) 87 08/09/2016 [facility] Temperature Oral (F) 98.1 F 08/09/2016 [facility] Height 180.34 cm 08/05/2016 [facility] Weight 81.818 08/05/2016 [facility] BMI Calculated 25.16 08/05/2016 [facility] BMI Calculated 25.16 08/05/2016 [facility] Weight 81.818 08/05/2016 [facility] Height 180.34 cm 08/05/2016 [facility] Systolic (mm Hg) 164 07/24/2016 [facility] Diastolic (mm Hg) 95 07/24/2016 [facility] Heart Rate 91 07/24/2016 [facility] Respitory Rate 18 07/24/2016 [facility] Temperature Oral (F) 98.1 F 07/24/2016 [facility] Respitory Rate 20 07/24/2016 [facility] Systolic (mm Hg) 154 07/24/2016 [facility] Diastolic (mm Hg) 82 07/24/2016 [facility] Heart Rate 94 07/24/2016 [facility] Heart Rate 84 07/24/2016 [facility] Temperature Oral (F) 97.8 F 07/24/2016 [facility] Systolic (mm Hg) 130 07/24/2016 [facility] Diastolic (mm Hg) 78 07/24/2016 [facility] Respitory Rate 20 07/24/2016 [facility] Temperature Oral (F) 98.3 F 07/23/2016 [facility] Respitory Rate 18 07/14/2016 [facility] Systolic (mm Hg) 125 07/14/2016 [facility] Diastolic (mm Hg) 84 07/14/2016 [facility] Temperature Oral (F) 98.0 F 07/14/2016 [facility] Heart Rate 85 07/14/2016 [facility] Systolic (mm Hg) 135 07/14/2016 [facility] Diastolic (mm Hg) 93 07/14/2016 [facility] Respitory Rate 18 07/14/2016 [facility] Heart Rate 94 07/14/2016 [facility] Temperature Oral (F) 97.8 F 07/14/2016 [facility] Respitory Rate 18 07/14/2016 [facility] Heart Rate 81 07/14/2016 [facility] Temperature Oral (F) 98.2 F 07/14/2016 [facility] Systolic (mm Hg) 154 07/14/2016 [facility] Diastolic (mm Hg) 103 07/14/2016 [facility] Weight 79.3 07/08/2016 [facility] BMI Calculated 24.38 07/08/2016 [facility] Height 180.34 cm 07/08/2016 [facility] Weight 84.091 07/08/2016 [facility] Height 180.34 cm 07/08/2016 [facility] BMI Calculated 25.86 07/08/2016 [facility] Systolic (mm Hg) 160 06/14/2016 [facility] Diastolic (mm Hg) 95 06/14/2016 [facility] Respitory Rate 15 06/14/2016 [facility] Temperature Oral (F) 98.4 F 06/14/2016 [facility] Heart Rate 95 06/14/2016 [facility] Respitory Rate 15 06/14/2016 [facility] Systolic (mm Hg) 165 06/14/2016 [facility] Diastolic (mm Hg) 90 06/14/2016 [facility] Respitory Rate 15 06/14/2016 [facility] Systolic (mm Hg) 148 06/14/2016 [facility] Diastolic (mm Hg) 96 06/14/2016 [facility] Temperature Oral (F) 98.0 F 06/14/2016 [facility] Heart Rate 81 06/14/2016 [facility] Temperature Oral (F) 98 F 06/14/2016 [facility] Heart Rate 100 06/14/2016 [facility] Weight 85.909 06/13/2016 [facility] Height 180.34 cm 06/13/2016 [facility] BMI Calculated 26.42 06/13/2016 [facility] Weight 85.455 06/13/2016 [facility] BMI Calculated 26.28 06/13/2016 [facility] Height 180.34 cm 06/13/2016 [facility] Encounters Location Location Encounter Encounter Reason Attending ADM DC Status Source Details Type Number For Provider Date Date Visit [facility] [id number] [facility]13 [facility] Inpatient [id number] Beatriz 07/08 07/14 [facility] [place] /2016 [facility] Emergency [id number] [place]inyo 07/23 07/24 Mee Phelps /2016 [facility] Inpatient [id number] Jazmine 08/05 08/09 Mee Bryan /2016 [facility] Inpatient [id number] [place] 09/05 [facility] Procedures Procedure Code Date Perfomer Comments Source Dental operation [id number] [facility] Pancreas operation [id number] [facility] Tonsillectomy [id number] [facility]
--- OUTSIDE RECORDS SUMMARY | 2018-06-01 02:07 | XMS REPORT | Summary of Care ---
:[address] [facility] Address [address] [place] [address]- Encounter HQ Juanntr_bam(FIN) [id number] Date(s): 06/13/16 - 06/14/16 [facility] [address] [place] [address]- Discharge Disposition: Home or Self Care Attending Physician: Armida Millard MD Admitting Physician: Armida Millard MD Vital Signs Most recent to oldest 1 2 3 [Reference Range]: Height 180.34 cm 180.34 cm (06/13/16 6:47 AM) (06/13/16 12:37 AM) Current Weight 83.381 kg (06/14/16 6:23 AM) Temperature Oral [96.4-99.1 98.4 DegF 98.0 DegF 98 DegF DegF] (06/14/16 4:11 PM) (06/14/16 7:22 AM) (06/14/16 3:00 AM) Blood Pressure 160/95 mmHg 165/90 mmHg 148/96 mmHg [90-140/60-90 mmHg] *HI* *HI* *HI* (06/14/16 4:11 PM) (06/14/16 2:38 PM) (06/14/16 2:23 PM) Respiratory Rate [14-20 15 BRMIN 15 BRMIN 15 BRMIN BRMIN] (06/14/16 4:11 PM) (06/14/16 2:38 PM) (06/14/16 2:23 PM) Peripheral Pulse Rate 95 bpm 81 bpm 100 bpm [60-100 bpm] (06/14/16 4:11 PM) (06/14/16 7:22 AM) (06/14/16 3:00 AM) Weight 85.909 kg 85.455 kg (06/13/16 6:47 AM) (06/13/16 12:37 AM) Body Mass Index 26.42 m2 26.28 m2 (06/13/16 6:47 AM) (06/13/16 12:37 AM) Problem List Condition Effective Dates Status Health Status Informant CHF (congestive heart Resolved failure)(Confirmed) Asthma(Confirmed) Resolved Hypertension(Confirmed) Resolved Arthritis(Confirmed) Resolved Pancreatitis(Confirmed) Resolved Allergies, Adverse Reactions, Alerts Substance Reaction Severity Status NKDA Active Medications ANES diphenhydrAMINE 12.5 mg, 0.25 mL, Route: IVP, Drug form: INJ, Q6H, Dosing Weight 85.909, kg, PRN Itching, Start date: 06/14/16 8:40:00 [employer]OR OF INDIVIDUAL GIVING, Duration: 30 day, Stop date: 8:39:00 [employer] OF INDIV[employer]UAL GIVING Notes: (Same as: Benadryl) Start Date: 06/14/16 Stop Date: 06/14/16 Status: DiscontinuedANES flumazenil 0.2 mg, 2 mL, Route: IVP, Drug form: INJ, PRN, Dosing Weight 85.909, kg, PRN Benzodiazepine Reversal, Initial dose, Start date: 06/14/16 8:40:00 [employer] OF INDIVIDUAL GIVING, Duration: 30 day, Stop date: 07/14/16 8:39:00 DIRECTOR OF INDIVIDUAL GIVING Notes: (Same as: Romazicon) Start Date: 06/14/16 Stop Date: 06/14/16 Status: DiscontinuedANES meperidine 12.5 mg, 0.5 mL, Route: IVP, Drug form: INJ, Q30Min, Dosing Weight 85.909, kg, PRN Other -See Comment, For shivering, Start date: 06/14/16 8:40:00 [employer] OF INDIVIDUAL GIVING, Duration: 2 doses or times, Stop date: Limited # of times Notes: (Same as: Demerol) "Use Precaution in Elderly, Seizure disorders, and Renal impairment" Start Date: 06/14/16 Stop Date: 06/14/16 Status: DiscontinuedANES morphine Sulfate 4 mg, 1 mL, Route: IVP, Drug form: INJ, Q5Min, Dosing Weight 85.909, kg, PRN Pain Score 7-10, Start date: 06/14/16 8:40:00 DIRECTOR OF INDIVIDUAL GIVING, Duration: 3 doses or times, Stop date: Limited # of times Notes: (Same as:MORPhine Sulfate) Start Date: 06/14/16 Stop Date: 06/14/16 Status: DiscontinuedANES morphine Sulfate 2 mg, 1 mL, Route: IVP, Drug form: SOLN, Q5Min, Dosing Weight 85.909, kg, PRN Pain Score 4-6, Start date: 06/14/16 8:40:00 [employer] OF INDIVIDUAL GIVING, Duration: 5 doses or times, Stop date: Limited # of times Start Date: 06/14/16 Stop Date: 06/14/16 Status: DiscontinuedANES naloxone 0.4 mg, 1 mL, Route: IVP, Drug form: INJ, Q2MIN, Dosing Weight 85.909, kg, PRN Narcotic Reversal, Start date: 06/14/16 8:40:00 [employer] OF INDIVIDUAL GIVING, Duration: 8 doses or times , Stop date: Limited # of times Notes: Same as Narcan Start Date: 06/14/16 Stop Date: 06/14/16 Status: DiscontinuedANES ondansetron 4 mg, 2 mL, Route: IVP, Drug form: INJ, ONCE, Dosing Weight 85.909, kg, PRN Nausea & Vomiting, Start date: 06/14/16 8:40:00 DIRECTOR OF INDIVIDUAL GIVING Notes: (Same as: Sugey) MEDICATION WASTE Product Size: 4 mgProduct Wasted: ___ mg Start Date: 06/14/16 Stop Date: 06/14/16 Status: CompletedAtivan 1 mg, 1 tab, Route: PO, Drug form: TAB, TID, Dosing Weight 85.909, kg, PRN Anxiety, Start date: 06/14/16 4:03:00 [employer] OF INDIVIDUAL GIVING, Duration: 30 day, Stop date: 4:02:00 DIRECTOR OF INDIVIDUAL GIVING Notes: (Same as: Ativan) Start Date: 06/14/16 Stop Date: 06/14/16 Status: DiscontinuedAtivan 1 mg, 0.5 mL, Route: IVP, Drug form: INJ, ONCE, Dosing Weight 85.909, kg, PRN Anxiety, Start date: 06/14/16 4:03:00 DIRECTOR OF INDIVIDUAL GIVING Notes: (Same as: Ativan) Start Date: 06/14/16 Stop Date: 06/14/16 Status: DiscontinuedAtivan 1 mg, 0.5 mL, Route: IV, Drug form: INJ, ONCE, Dosing Weight 85.909, kg, Priority: NOW, Start date: 06/14/16 3:58:00 DIRECTOR OF INDIVIDUAL GIVING, Stop date: 06/14/16 3:58:00 DIRECTOR OF INDIVIDUAL GIVING Notes: (Same as: Ativan) Start Date: 06/14/16 Stop Date: 06/14/16 Status: CompletedBentyl 20 mg, 1 tab, Route: PO, Drug form: TAB, QID, Dosing Weight 85.909, kg, Start date: 06/14/16 13:00:00 DIRECTOR OF INDIVIDUAL GIVING, Duration: 30 day, Stop date: 07/14/16 9:00:00 DIRECTOR OF INDIVIDUAL GIVING Notes: (Same as: Bentyl) Start Date: 06/14/16 Stop Date: 06/14/16 Status: DiscontinuedBentyl 20 mg oral tablet 20 mg=1 tab, PO, QID, # 60 tab, 0 Refill(s) Start Date: 06/14/16 Status: [id number] 1,000 mL 1,000 mL, Rate: 125 ml/hr, Infuse over: 8 hr, Route: IV, Dosing Weight 85.455 kg , Total Volume: 1,000, Start date: 06/13/16 5:56:00 DIRECTOR OF INDIVIDUAL GIVING, Duration: 30 day, Stop date: 07/13/16 5:55:00 DIRECTOR OF INDIVIDUAL GIVING Start Date: 06/13/16 Stop Date: 06/14/16 Status: DiscontinuedDilaudid 0.5 mg, 0.25 mL, Route: IVP, Drug form: INJ, ONCE, Dosing Weight 85.455, kg, Priority: STAT, Start date: 06/13/16 5:01:00 DIRECTOR OF INDIVIDUAL GIVING, Stop date: 06/13/16 5:01:00 DIRECTOR OF INDIVIDUAL GIVING Notes: Same as Dilaudid Start Date: 06/13/16 Stop Date: 06/13/16 Status: CompletedDilaudid 1 mg, 0.5 mL, Route: IVP, Drug form: INJ, Q3H, Dosing Weight 85.455, kg, PRN Pain Score 7-10, Priority: Routine, Start date: 06/13/16 6:08:00 [employer] OF INDIVIDUAL GIVING, Duration: 30 day, Stop date: 07/13/16 6:07:00 DIRECTOR OF INDIVIDUAL GIVING Notes: Same as Dilaudid Start Date: 06/13/16 Stop Date: 06/14/16 Status: Discontinuedfolic acid 1 mg, 1 tab, Route: PO, Drug form: TAB, Daily, Dosing Weight 85.455, kg, Start date: 06/14/16 9:00:00 DIRECTOR OF INDIVIDUAL GIVING, Duration: 5 day, Stop date: 06/18/16 9:00:00 DIRECTOR OF INDIVIDUAL GIVING Notes: (Same as: Folvite) Start Date: 06/14/16 Stop Date: 06/14/16 Status: Discontinuedfolic acid 1 mg oral tablet 1 mg=1 tab, PO, Daily, # 30 tab, 0 Refill(s) Start Date: 06/14/16 Status: OrderedhydrALAZINE 10 mg, Route: IVP, ONCE, Dosing Weight 85.909, kg, Start date: 06/14/16 13:36: 00 [employer] OF INDIVIDUAL GIVING, Stop date: 06/14/16 13:36:00 DIRECTOR OF INDIVIDUAL GIVING Start Date: 06/14/16 Stop Date: 06/14/16 Status: Completedhydromorphone 0.5 mg, 0.25 mL, Route: IVP, Drug form: INJ, ONCE, Dosing Weight 85.455, kg, Priority: STAT, Start date: 06/13/16 2:07:00 DIRECTOR OF INDIVIDUAL GIVING, Stop date: 06/13/16 2:07:00 DIRECTOR OF INDIVIDUAL GIVING Notes: Same as Dilaudid Start Date: 06/13/16 Stop Date: 06/13/16 Status: Completedlabetalol 20 mg, 4 mL, Route: IV, Drug form: INJ, Q4H, Dosing Weight 85.909, kg, PRN Elevated BP, Start date: 06/14/16 8:42:00 DIRECT[employer] OF INDIVIDUAL GIVING, Duration: 30 day, Stop date: 8:41:00 DIRECTOR OF INDIVIDUAL GIVING, as needed for sbp>160mmhg Notes: (Same as: Normodyne, Trandate)Push over 2 minutes Give bolus over 2-3 minutes. Start Date: 06/14/16 Stop Date: 06/14/16 Status: DiscontinuedLactated Ringers 1,000 mL 1,000 mL, Rate: 999 ml/hr, Infuse over: 1 hr, Route: IV, Dosing Weight 85.455 kg , Total Volume: 1,000, Start date: 06/13/16 2:07:00 DIRECTOR OF INDIVIDUAL GIVING, Duration: 1 doses or times, Stop date: 06/13/16 3:06:00 DIRECTOR OF INDIVIDUAL GIVING Start Date: 06/13/16 Stop Date: 06/13/16 Status: CompletedLORazepam 1 mg oral tablet 1 mg=1 tab, PO, TID, PRN Anxiety, # 20 tab, 0 Refill(s) Start Date: 06/14/16 Stop Date: 07/05/16 Status: Orderedmetoprolol tartrate 25 mg oral tablet 25 mg=1 tab, PO, BID, # 60 tab, 0 Refill(s) Start Date: 06/14/16 Status: OrderedMultiple Vitamins oral capsule 1 tab, PO, Breakfast, # 30 tab, 1 Refill(s) Start Date: 06/14/16 Status: Orderedmultivitamin 1 tab, Route: PO, Drug Form: TAB, Dosing Weight 85.455, kg, Breakfast, Start date: 06/14/16 8:00:00 DIRECTOR OF INDIVIDUAL GIVING, Duration: 5 day, Stop date: 06/18/16 8:00:00 DIRECTOR OF INDIVIDUAL GIVING Start Date: 06/14/16 Stop Date: 06/14/16 Status: Discontinuedondansetron 4 mg, 2 mL, Route: IVP, Drug form: INJ, ONCE, Dosing Weight 85.455, kg, Priority : STAT, Start date: 06/13/16 2:07:00 DIRECTOR OF INDIVIDUAL GIVING, Stop date: 06/13/16 2:07:00 DIRECTOR OF INDIVIDUAL GIVING Notes: (Same as: Sugey) MEDICATION WASTE Product Size: 4 mgProduct Wasted: ___ mg Start Date: 06/13/16 Stop Date: 06/13/16 Status: Completedpancrelipase 12,000 units-38,000 units-60,000 units oral delayed release capsule (Creon 12,000) 1 cap, PO, TID, # 90 cap, 1 Refill(s) Start Date: 06/14/16 Status: Orderedpantoprazole 40 mg, Route: IVP, Drug form: INJ, ONCE, Dosing Weight 85.455, kg, For IV push reconstitute with 10 ml 0.9% sodium chloride and push over at least 3 minutes, Priority: STAT, Start date: 06/13/16 2:07:00 DIRECTOR OF INDIVIDUAL GIVING, Stop date: 06/13/16 2:07:00 DIRECTOR OF INDIVIDUAL GIVING Start Date: 06/13/16 Stop Date: 06/13/16 Status: Completedpantoprazole 40 mg + BD Normal Saline Flush 10 mL Route: IV, Drug form: INJ, Daily, Dosing Weight 85.909, kg, Start date: 9:00:00 DIRECTOR OF INDIVIDUAL GIVING, Duration: 30 day, Stop date: 07/13/16 9:00:00 DIRECTOR OF INDIVIDUAL GIVING Notes: For IV push reconstitute with 10 ml 0.9% sodium chloride and push over 2 minutes. (Same as: Protonix) Start Date: 06/14/16 Stop Date: 06/14/16 Status: DiscontinuedPhenergan + sodium chloride 0.9% 50ml non PVC bag 50 mL 25 mg, 1 mL, Route: IVPB, Q6H, Dosing Weight 85.909, kg, PRN as needed for nausea/vomiting, Start date: 06/14/16 0:24:00 DIRECTOR OF INDIVIDUAL GIVING, Duration: 30 day, Stop date: 07/14/16 0:23:00 DIRECTOR OF INDIVIDUAL GIVING Start Date: 06/14/16 Stop Date: 06/14/16 Status: DiscontinuedPhenergan + sodium chloride 0.9% 50ml non PVC bag 50 mL 25 mg, 1 mL, Route: IVPB, Q4H, Dosing Weight 85.455, kg, PRN Nausea, Priority: STAT, Start date: 06/13/16 5:56:00 DIRECTOR OF INDIVIDUAL GIVING, Duration: 30 day, Stop date: 07/13/16 5: 55:00 DIRECTOR OF INDIVIDUAL GIVING Notes: Do not give IV push. (Same as: Phenergan) Start Date: 06/13/16 Stop Date: 06/14/16 Status: DiscontinuedProtonix 40 mg oral enteric coated tablet 40 mg=1 tab, PO, Daily, # 30 tab, 0 Refill(s) Start Date: 06/14/16 Status: OrderedSaline Flush 0.9% 10 ml, Route: IVP, Drug Form: INJ, Dosing Weight 85.455, kg, PRN, PRN Line Flush , Start date: 06/13/16 5:56:00 DIRECTOR OF INDIVIDUAL GIVING, Duration: 30 day, Stop date: 07/13/16 5:55: 00 DIRECTOR OF INDIVIDUAL GIVING Start Date: 06/13/16 Stop Date: 06/13/16 Status: DeletedSaline Flush 0.9% 10 mL, Route: IVP, Drug Form: INJ, Dosing Weight 85.455, kg, PRN, PRN Line Flush , Start date: 06/13/16 2:07:00 DIRECTOR OF INDIVIDUAL GIVING, Duration: 30 day, Stop date: 07/13/16 2:06: 00 DIRECTOR OF INDIVIDUAL GIVING Notes: (Same as: BD Posiflush) Start Date: 06/13/16 Stop Date: 06/14/16 Status: Discontinuedsodium chloride 0.9% 1000 ml INJ 1,000 mL + M.V.I.-12 10 mL Daily + folic acid IV 1 mg Daily + thia 1,000 mL, Rate: 100 ml/hr, Infuse over: 10.1 hr, Route: IV, Dosing Weight 85.455 kg, Total Volume: 1,011.2, Start date: 06/13/16 5:02:00 DIRECTOR OF INDIVIDUAL GIVING, Duration: 1 doses or times, Stop date: 06/13/16 15:07:00 DIRECTOR OF INDIVIDUAL GIVING Start Date: 06/13/16 Stop Date: 06/13/16 Status: CompletedSodium Chloride 0.9% IV 25 mL, Route: IV, Start date: 06/13/16 2:09:00 DIRECTOR OF INDIVIDUAL GIVING, Duration: 30 day, Stop date : 07/13/16 2:08:00 DIRECTOR OF INDIVIDUAL GIVING, PRN Line Flush Start Date: 06/13/16 Stop Date: 06/14/16 Status: Discontinuedthiamine + sodium chloride 0.9% 50ml non PVC bag 50 mL 100 mg, 1 mL, Route: IV, Daily, Dosing Weight 85.455, kg, Start date: 06/14/16 9 :00:00 DIRECTOR OF INDIVIDUAL GIVING, Duration: 3 day, Stop date: 06/16/16 9:00:00 DIRECTOR OF INDIVIDUAL GIVING Notes: (Same As: Vitamin B1) Start Date: 06/14/16 Stop Date: 06/14/16 Status: Discontinuedthiamine + sodium chloride 0.9% 50ml non PVC bag 50 mL 100 mg, 1 mL, Route: IV, ONCE, Dosing Weight 85.455, kg, Priority: STAT, Start date: 06/13/16 5:02:00 DIRECTOR OF INDIVIDUAL GIVING, Stop date: 06/13/16 5:02:00 DIRECTOR OF INDIVIDUAL GIVING Notes: (Same As: Vitamin B1) Start Date: 06/13/16 Stop Date: 06/13/16 Status: Completedthiamine 100 mg oral tablet 100 mg=1 tab, PO, Daily, # 30 tab, 0 Refill(s) Start Date: 06/14/16 Stop Date: 07/05/16 Status: Orderedtramadol 50 mg oral tablet 50 mg=1 tab, PO, Q6H, # 30 tab, 0 Refill(s) Start Date: 06/14/16 Stop Date: 07/05/16 Status: OrderedTylenol with Codeine #3 oral tablet 1 tab, PO, Q6H, PRN as needed for pain 6-10, # 30 tab, 0 Refill(s) Start Date: 06/14/16 Stop Date: 07/05/16 Status: OrderedZofran 4 mg, 2 mL, Route: IV, Drug form: INJ, Q4H, Dosing Weight 85.909, kg, PRN as needed for nausea/vomiting, Start date: 06/13/16 10:58:00 DIRECTOR OF INDIVIDUAL GIVING, Duration: 30 day , Stop date: 07/13/16 10:57:00 DIRECTOR OF INDIVIDUAL GIVING Notes: (Same as: Zofran) MEDICATION WASTE Product Size: 4 mgProduct Wasted: _0__ mg Start Date: 06/13/16 Stop Date: 06/14/16 Status: Discontinued Results ELECTROLYTES Most recent to oldest [Reference Range]: 1 2 Sodium Lvl [135-145 mEq/L] 139 mEq/L 141 mEq/L (06/14/16 3:08 AM) (06/13/16 2:24 AM) Potassium Lvl [3.5-5.1 mEq/L] 3.8 mEq/L 4.2 mEq/L (06/14/16 3:08 AM) (06/13/16 2:24 AM) Chloride Lvl [95-109 mEq/L] 101 mEq/L 102 mEq/L (06/14/16 3:08 AM) (06/13/16 2:24 AM) CO2 [24-32 mEq/L] 24 mEq/L 21 mEq/L (06/14/16 3:08 AM) *LOW* (06/13/16 2:24 AM) AGAP [10.0-20.0 mEq/L] 17.8 mEq/L 22.2 mEq/L (06/14/16 3:08 AM) *HI* (06/13/16 2:24 AM) CHEM PANEL Most recent to oldest [Reference Range]: 1 2 Creatinine Lvl [0.50-1.40 mg/dL] 0.90 mg/dL 0.95 mg/dL (06/14/16 3:08 AM) (06/13/16 2:24 AM) eGFR 99 mL/min/1.73m2 1 92 mL/min/1.73m2 2 *NA* *NA* (06/14/16 3:08 AM) (06/13/16 2:24 AM) BUN [7-22 mg/dL] 10 mg/dL 12 mg/dL (06/14/16 3:08 AM) (06/13/16 2:24 AM) B/C Ratio [6-25] 11 13 (06/14/16 3:08 AM) (06/13/16 2:24 AM) Glucose Lvl [70-99 mg/dL] 89 mg/dL 105 mg/dL (06/14/16 3:08 AM) *HI* (06/13/16 2:24 AM) Total Protein [6.4-8.4 g/dL] 7.2 g/dL 8.4 g/dL (06/14/16 3:08 AM) (06/13/16 2:24 AM) Albumin Lvl [3.5-5.0 g/dL] 3.8 g/dL 4.1 g/dL (06/14/16 3:08 AM) (06/13/16 2:24 AM) Globulin [2.7-4.2 g/dL] 3.4 g/dL 4.3 g/dL (06/14/16 3:08 AM) *HI* (06/13/16 2:24 AM) A/G Ratio [0.7-1.6] 1.1 1.0 (06/14/16 3:08 AM) (06/13/16 2:24 AM) Calcium Lvl [8.5-10.5 mg/dL] 8.1 mg/dL 8.3 mg/dL *LOW* *LOW* (06/14/16 3:08 AM) (06/13/16 2:24 AM) Magnesium Lvl [1.8-2.4 mg/dL] 1.8 mg/dL (06/14/16 3:08 AM) ALT [0-65 unit/L] 83 unit/L 113 unit/L *HI* *HI* (06/14/16 3:08 AM) (06/13/16 2:24 AM) AST [0-37 unit/L] 53 unit/L 76 unit/L *HI* *HI* (06/14/16 3:08 AM) (06/13/16 2:24 AM) Alk Phos [39-136 unit/L] 124 unit/L 152 unit/L (06/14/16 3:08 AM) *HI* (06/13/16 2:24 AM) Bili Total [0.2-1.3 mg/dL] 1.0 mg/dL 0.5 mg/dL (06/14/16 3:08 AM) (06/13/16 2:24 AM) Amylase Lvl [25-115 unit/L] 88 unit/L (06/13/16 2:24 AM) Lipase Lvl [73-393 unit/L] 45 unit/L *LOW* (06/13/16 2:24 AM) 1Result Comment: The eGFR is calculated using the CKD-EPI formula. In most young , healthy individualsthe eGFR will be >90 mL/min/1.73m2. The eGFR declines with age. An eGFR of 60-89 may be normal in some populations, particularly the elderly, for whom the CKD-EPI formula has not been extensively validated. Use of the eGFR is not recommended in the following populations: Individuals with unstable creatinine concentrations, including patients and those with serious co-morbid conditions. Patients with extremes in muscle mass or diet. The data above are obtained from the National Kidney Disease Education Program ( NKDEP) which additionally recommends that when the eGFR is used in patients with extremes of body mass index for purposesof drug dosing, the eGFR should be multiplied by the estimated BMI.2Result Comment: The eGFR is calculated using the CKD-EPI formula. In most young, healthy individualsthe eGFR will be >90 mL/ min/1.73m2. The eGFR declines with age. An eGFR of 60-89 may be normal in some populations, particularly the elderly, for whom the CKD-EPI formula has not been extensively validated. Use of the eGFR is not recommended in the following populations: Individuals with unstable creatinine concentrations, including patients and those with serious co-morbid conditions. Patients with extremes in muscle mass or diet. The data above are obtained from the National Kidney Disease Education Program ( NKDEP) which additionally recommends that when the eGFR is used in patients with extremes of body mass index for purposesof drug dosing, the eGFR should be multiplied by the estimated BMI.URINE AND STOOL Most recent to oldest [Reference Range]: 1 2 UA Turbidity [Clear] Clear (06/13/16 3:54 AM) UA Color [Yellow] Light Yellow *NA* (06/13/16 3:54 AM) UA pH [5.0-8.0] 5.0 (06/13/16 3:54 AM) UA Spec Grav [<=1.030] 1.016 (06/13/16 3:54 AM) UA Glucose [Negative mg/dL] Negative mg/dL *NA* (06/13/16 3:54 AM) UA Blood [Negative] Small *ABN* (06/13/16 3:54 AM) UA Ketones [Negative mg/dL] 20 mg/dL *ABN* (06/13/16 3:54 AM) UA Protein [Negative mg/dL] 30 mg/dL *ABN* (06/13/16 3:54 AM) UA Urobilinogen [0.1-1.0 mg/dL] <=1.0 mg/dL *NA* (06/13/16 3:54 AM) UA Bili [Negative] Negative *NA* (06/13/16 3:54 AM) UA Leuk Est [Negative] Negative (06/13/16 3:54 AM) UA Nitrite [Negative] Negative (06/13/16 3:54 AM) UA WBC [0-5 /HPF] 1 /HPF (06/13/16 3:54 AM) UA Sq Epi [Few /LPF] Occasional /LPF *NA* (06/13/16 3:54 AM) UA Hyal Cast [0-2 /LPF] 1 /LPF (06/13/16 3:54 AM) UA Mucus [None Seen /LPF] Few /LPF *NA* (06/13/16 3:54 AM) IMMUNOLOGY Most recent to oldest [Reference Range]: 1 2 H pylori Urease [Negative] Negative (06/14/16 1:05 PM) HEMATOLOGY Most recent to oldest [Reference Range]: 1 2 WBC [3.7-10.4 K/CMM] 6.0 K/CMM 6.4 K/CMM (06/14/16 3:08 AM) (06/13/16 2:24 AM) RBC [4.70-6.10 M/CMM] 4.15 M/CMM 5.01 M/CMM *LOW* (06/13/16 2:24 AM) (06/14/16 3:08 AM) Hgb [14.0-18.0 g/dL] 12.7 g/dL 15.5 g/dL *LOW* (06/13/16 2:24 AM) (06/14/16 3:08 AM) Hct [42.0-54.0 %] 38.4 % 45.4 % *LOW* (06/13/16 2:24 AM) (06/14/16 3:08 AM) MCV [80.0-94.0 fL] 92.4 fL 90.6 fL (06/14/16 3:08 AM) (06/13/16 2:24 AM) MCH [27.0-31.0 pg] 30.6 pg 30.9 pg (06/14/16 3:08 AM) (06/13/16 2:24 AM) MCHC [32.0-36.0 g/dL] 33.1 g/dL 34.1 g/dL (06/14/16 3:08 AM) (06/13/16 2:24 AM) RDW [11.5-14.5 %] 15.7 % 16.5 % *HI* *HI* (06/14/16 3:08 AM) (06/13/16 2:24 AM) Platelet [133-450 K/CMM] 181 K/CMM 281 K/CMM (06/14/16 3:08 AM) (06/13/16 2:24 AM) MPV [7.4-10.4 fL] 7.4 fL 7.2 fL (06/14/16 3:08 AM) *LOW* (06/13/16 2:24 AM) Segs [45.0-75.0 %] 69.1 % 58.3 % (06/14/16 3:08 AM) (06/13/16 2:24 AM) Lymphocytes [20.0-40.0 %] 19.3 % 33.2 % *LOW* (06/13/16 2:24 AM) (06/14/16 3:08 AM) Monocytes [2.0-12.0 %] 6.4 % 4.0 % (06/14/16 3:08 AM) (06/13/16 2:24 AM) Eosinophils [0.0-4.0 %] 4.3 % 3.1 % *HI* (06/13/16 2:24 AM) (06/14/16 3:08 AM) Basophils [0.0-1.0 %] 0.9 % 1.4 % (06/14/16 3:08 AM) *HI* (06/13/16 2:24 AM) Segs-Bands # [1.5-8.1 K/CMM] 4.2 K/CMM 3.8 K/CMM (06/14/16 3:08 AM) (06/13/16 2:24 AM) Lymphocytes # [1.0-5.5 K/CMM] 1.2 K/CMM 2.1 K/CMM (06/14/16 3:08 AM) (06/13/16 2:24 AM) Monocytes # [0.0-0.8 K/CMM] 0.4 K/CMM 0.3 K/CMM (06/14/16 3:08 AM) (06/13/16 2:24 AM) Eosinophils # [0.0-0.5 K/CMM] 0.3 K/CMM 0.2 K/CMM (06/14/16 3:08 AM) (06/13/16 2:24 AM) Basophils # [0.0-0.2 K/CMM] 0.1 K/CMM 0.1 K/CMM (06/14/16 3:08 AM) (06/13/16 2:24 AM) Immunizations Given and Recorded Vaccine Date Status Refusal Reason pneumococcal 23-valent vaccine 06/14/16 Given Procedures Procedure Date Related Diagnosis Body Site Dental operation Pancreas operation Tonsillectomy Social History Social History Type Response Substance Abuse Use: None. Alcohol Current, Type Liquor. Frequency: 1-2 times per month. Smoking Status Never smoker; Previous treatment: None; Ready to change: No; Concerns about tobacco use in household: No; Exposure to Tobacco Smoke None; Cigarette Smoking Last 365 Days No; Reg Smoking Cessation Counseling No Assessment and Plan Extracted from: Title: f/u Author: Armida Millard MD Date: 06/13/16 Patient seen and examined, c/o constant epigastric pain along with nausea. Patient has chronic pancreatitis with atrophy along with pseudocyst formation. Previous pancreatic suregries were perforemd. Patient decided to drink a pint of alcohol yesterday to relieve himseplf of the pain and states that he has not been drinking frequently. P/E epigastric tenderness mild. Continue dilaudid prn and anti emetics. GI coonsult placed--plan for EGD in am. Monitor for withdrawal symptoms, labs in am.
--- OUTSIDE RECORDS SUMMARY | 2018-06-01 02:08 | XMS REPORT | Summary of Care ---
:1965 Author Organization [facility] Address [address] [place] [address]- Encounter HQ Juanntr_bam(FIN) [id number] Date(s): 07/08/16 - 07/14/16 [facility] [address] [place] [address]- Discharge Disposition: Home or Self Care Attending Physician: Beatriz Denis MD Admitting Physician: Beatriz Denis MD Vital Signs Most recent to oldest 1 2 3 [Reference Range]: Height 180.34 cm 180.34 cm (07/08/16 6:39 AM) (07/08/16 3:23 AM) Temperature Oral [96.4-99.1 98.0 DegF 97.8 DegF 98.2 DegF DegF] (07/14/16 3:35 PM) (07/14/16 11:34 AM) (07/14/16 8:15 AM) Blood Pressure [90-140/60-90 125/84 mmHg 135/93 mmHg 154/103 mmHg mmHg] (07/14/16 3:35 PM) (07/14/16 11:34 AM) *HI* (07/14/16 8:15 AM) Respiratory Rate [14-20 BRMIN] 18 BRMIN 18 BRMIN 18 BRMIN (07/14/16 3:35 PM) (07/14/16 11:34 AM) (07/14/16 8:15 AM) Peripheral Pulse Rate [60-100 85 bpm 94 bpm 81 bpm bpm] (07/14/16 3:35 PM) (07/14/16 11:34 AM) (07/14/16 8:15 AM) Weight 79.3 kg 84.091 kg (07/08/16 6:39 AM) (07/08/16 3:23 AM) Body Mass Index 24.38 m2 25.86 m2 (07/08/16 6:39 AM) (07/08/16 3:23 AM) Problem List Condition Effective Dates Status Health Status Informant Alcohol dependence with withdrawal Active delirium(Confirmed) Chronic gastritis(Confirmed) Active Chronic pancreatitis(Confirmed) Active Alcohol-induced chronic Active pancreatitis(Confirmed) Cerebrovascular accident Resolved (CVA)(Confirmed) Hepatic steatosis(Confirmed) Active Asthma(Confirmed) Resolved Hypertension(Confirmed) Active Arthritis(Confirmed) Resolved Allergies, Adverse Reactions, Alerts Substance Reaction Severity Status NKDA Active Medications acetaminophen 650 mg, 2 tab, Route: PO, Drug form: TAB, Q4H, Dosing Weight 84.091, kg, PRN Pain 1-3/Temp > 100.4 F, Start date: 07/08/16 6:18:00 SUPERVISOR ANODIZING, Duration: 30 day, Stop date: 08/07/16 6:17:00 SUPERVISOR ANODIZING Notes: Do not exceed 4 gm/day. (Same as: Tylenol) Start Date: 07/08/16 Stop Date: 07/14/16 Status: Discontinuedacetaminophen-codeine 300 mg-30 mg oral tablet 1 tab, PO, TID, PRN Pain Score 7-10, X 10 day, # 30 tab, 0 Refill(s) Start Date: 07/14/16 Stop Date: 07/24/16 Status: Orderedacetaminophen-codeine 300 mg-30 mg oral tablet 1 tab, Route: PO, Drug Form: TAB, Q4H, PRN Pain Score 7-10, Start date: 11:09:00 SUPERVISOR ANODIZING, Duration: 30 day, Stop date: 08/12/16 11:08:00 SUPERVISOR ANODIZING Notes: Do not exceed 4gm/day of acetaminophen. (Same as: Tylenol with Codeine # 3) Start Date: 07/13/16 Stop Date: 07/14/16 Status: Discontinuedacetaminophen-hydrocodone 325 mg-5 mg oral tablet 1 tab, Route: PO, Drug Form: TAB, Dosing Weight 84.091, kg, Q4H, PRN Pain Score 1-3, Start date: 07/08/16 6:18:00 SUPERVISOR ANODIZING, Duration: 30 day, Stop date: 08/07/16 6: 17:00 SUPERVISOR ANODIZING Start Date: 07/08/16 Stop Date: 07/08/16 Status: DiscontinuedamLODIPine 10 mg, 1 tab, Route: PO, Drug form: TAB, Daily, Dosing Weight 79.3, kg, Start date: 07/12/16 9:00:00CST, Duration: 30 day, Stop date: 08/10/16 9:00:00 SUPERVISOR ANODIZING Notes: (Same as: Norvasc) Start Date: 07/12/16 Stop Date: 07/14/16 Status: DiscontinuedamLODIPine 10 mg oral tablet 10 mg=1 tab, PO, Daily, # 30 tab, 0 Refill(s) Start Date: 07/14/16 Stop Date: 08/13/16 Status: OrderedBentyl 20 mg, 1 tab, Route: PO, Drug form: TAB, QID, Dosing Weight 79.3, kg, Start date : 07/09/16 10:00:00 SUPERVISOR ANODIZING, Duration: 30 day, Stop date: 08/08/16 9:00:00 SUPERVISOR ANODIZING Notes: (Same as: Bentyl) Start Date: 07/09/16 Stop Date: 07/14/16 Status: DiscontinuedBentyl 20 mg oral tablet 20 mg=1 tab, PO, QID, PRN Pain Score 4-6, # 60 tab, 0 Refill(s) Start Date: 07/14/16 Status: Orderedcalcium gluconate + sodium chloride 0.9% INJ 100 mL 2 gm, 20 mL, Route: IVPB, Drug form: INJ, PRN, Dosing Weight 79.3, kg, PRN Abnormal Lab Result, For NON-ICU Patients Only., Start date: 07/08/16 6:50:00 SUPERVISOR ANODIZING, Duration: 30 day, Stop date: 08/07/16 6:49:00 SUPERVISOR ANODIZING Notes: WASTE: F/P - Sink; E - Municipal Trash Bin Start Date: 07/08/16 Stop Date: 07/14/16 Status: Discontinuedcalcium gluconate + sodium chloride 0.9% INJ 150 mL 3 gm, 30 mL, Route: IVPB, Drug form: INJ, PRN, Dosing Weight 79.3, kg, PRN Abnormal Lab Result, For NON-ICU Patients Only., Start date: 07/08/16 6:50:00 SUPERVISOR ANODIZING, Stop date: 08/07/16 6:49:00 SUPERVISOR ANODIZING Notes: WASTE: F/P - Sink; E - Municipal Trash Bin Start Date: 07/08/16 Stop Date: 07/14/16 Status: DiscontinuedchlordiazePOXIDE 25 mg oral capsule (Librium) 25 mg, 1 cap, Route: PO, Drug form: CAP, Q6H, Dosing Weight 79.3, kg, PRN Withdrawal, Alcohol Withdrawal, Start date: 07/12/16 13:02:00 SUPERVISOR ANODIZING, Duration: 30 day, Stop date: 08/11/16 13:01:00 SUPERVISOR ANODIZING Start Date: 07/12/16 Stop Date: 07/13/16 Status: DiscontinuedchlordiazePOXIDE 25 mg oral capsule (Librium) 25 mg, 1 cap, Route: PO, Drug form: CAP, Q8H, Dosing Weight 79.3, kg, PRN Withdrawal, Alcohol Withdrawal, Start date: 07/13/16 9:15:00 SUPERVISOR ANODIZING, Duration: 30 day, Stop date: 08/12/16 9:14:00 SUPERVISOR ANODIZING Start Date: 07/13/16 Stop Date: 07/14/16 Status: DiscontinuedchlordiazePOXIDE(Librium) 50 mg, 2 cap, Route: PO, Drug form: CAP, Q8H, Dosing Weight 84.091, kg, Start date: 07/08/16 8:00:00CST, Duration: 1 day, Stop date: 07/09/16 0:00:00 SUPERVISOR ANODIZING Start Date: 07/08/16 Stop Date: 07/08/16 Status: DiscontinuedchlordiazePOXIDE(Librium) 25 mg, 1 cap, Route: PO, Drug form: CAP, Q12H, Dosing Weight 84.091, kg, Start date: 07/11/16 9:00:00 SUPERVISOR ANODIZING, Duration: 1 day, Stop date: 07/11/16 21:00:00 SUPERVISOR ANODIZING Start Date: 07/11/16 Stop Date: 07/08/16 Status: CanceledchlordiazePOXIDE(Librium) 25 mg, 1 cap, Route: PO, Drug form: CAP, Bedtime, Dosing Weight 84.091, kg, Start date: 07/12/16 21:00:00 SUPERVISOR ANODIZING, Duration: 1 day, Stop date: 07/12/16 21:00: 00 SUPERVISOR ANODIZING Start Date: 07/12/16 Stop Date: 07/08/16 Status: CanceledchlordiazePOXIDE(Librium) 25 mg, 1 cap, Route: PO, Drug form: CAP, Q6H, Dosing Weight 84.091, kg, Start date: 07/09/16 12:00:00 SUPERVISOR ANODIZING, Duration: 1 day, Stop date: 07/10/16 6:00:00 SUPERVISOR ANODIZING Start Date: 07/09/16 Stop Date: 07/08/16 Status: CanceledCreon 12,000 units oral delayed release capsule 1 cap, Route: PO, Drug Form: DRC, Dosing Weight 84.091, kg, TID, Start date: 03/16 9:00:00 SUPERVISOR ANODIZING, Duration: 30 day, Stop date: 08/06/16 17:00:00 SUPERVISOR ANODIZING Notes: (lipase 6,000 units, protease 19,000 units, amylase 30,000 units DRC) Same as: Creon (Creon 6) Start Date: 07/08/16 Stop Date: 07/14/16 Status: DiscontinuedDilaudid 0.2 mg, 0.1 mL, Route: IVP, Drug form: INJ, Q4H, Dosing Weight 84.091, kg, PRN Pain Score 7-10, Start date: 07/08/16 6:37:00 SUPERVISOR ANODIZING, Duration: 30 day, Stop date: 08/07/16 6:36:00 SUPERVISOR ANODIZING Notes: Same as Dilaudid Start Date: 07/08/16 Stop Date: 07/09/16 Status: DiscontinuedfentaNYL 100 microgram, 2 mL, Route: IVP, Drug form: INJ, ONCE, Dosing Weight 84.091, kg , Priority: STAT, Start date: 07/08/16 3:29:00 SUPERVISOR ANODIZING, Stop date: 07/08/16 3:29:00 SUPERVISOR ANODIZING Notes: (Same as: Sublimaze) Preservative free. Start Date: 07/08/16 Stop Date: 07/08/16 Status: Completedfolic acid 1 mg, 1 tab, Route: PO, Drug form: TAB, Daily, Dosing Weight 79.3, kg, Start date: 07/09/16 10:00:00CST, Duration: 30 day, Stop date: 08/08/16 9:00:00 SUPERVISOR ANODIZING Notes: (Same as: Folvite) Start Date: 07/09/16 Stop Date: 07/14/16 Status: DiscontinuedhydrALAZINE 10 mg, 0.5 mL, Route: IVP, Drug form: INJ, Q4H, Dosing Weight 79.3, kg, PRN Hypertension, Start date: 07/08/16 21:39:00 SUPERVISOR ANODIZING, Duration: 30 day, Stop date: 21:38:00 SUPERVISOR ANODIZING Notes: (Same as: Apresoline)Push over 5 minutes Start Date: 07/08/16 Stop Date: 07/14/16 Status: Discontinuedhyoscyamine 0.375 mg dual-release oral tablet, extended release 0.375 mg=1 tab, PO, Q12H, # 60 tab, 0 Refill(s) Start Date: 07/14/16 Stop Date: 08/13/16 Status: Orderedhyoscyamine 0.375 mg dual-release oral tablet, extended release 0.375 mg, 1 tab, Route: PO, Drug form: ERTAB, Q12H, Dosing Weight 84.091, kg, Start date: 07/08/16 9:00:00 SUPERVISOR ANODIZING, Duration: 30 day, Stop date: 08/06/16 21:00: 00 SUPERVISOR ANODIZING Notes: (Same as: Levbid)"Do Not Crush" Take 30 min before meal Start Date: 07/08/16 Stop Date: 07/14/16 Status: DiscontinuedLactated Ringers (Bolus) IV 1,000 mL, 2,000 ml/hr, Infuse Over: 0.5 hr, Route: IV, 1,000, Drug form: INJ, ONCE, Priority: STAT, Dosing Weight 84.091 kg, Start date: 07/08/16 3:29:00 SUPERVISOR ANODIZING , Duration: 1 doses or times, Stop date: 07/08/16 3:29:00 SUPERVISOR ANODIZING Start Date: 07/08/16 Stop Date: 07/08/16 Status: CompletedLORazepam 2 mg, 1 mL, Route: IVP, Drug form: INJ, Q6H, Dosing Weight 79.3, kg, Start date : 07/08/16 18:00:00 SUPERVISOR ANODIZING, Duration: 24 hr, Stop date: 07/09/16 12:00:00 SUPERVISOR ANODIZING Notes: (Same as: Ativan) Start Date: 07/08/16 Stop Date: 07/09/16 Status: CompletedLORazepam 2 mg, 1 mL, Route: IVP, Drug form: INJ, Q8H, Dosing Weight 79.3, kg, Start date : 07/09/16 20:00:00 SUPERVISOR ANODIZING, Duration: 24 hr, Stop date: 07/10/16 12:00:00 SUPERVISOR ANODIZING Notes: (Same as: Ativan) Start Date: 07/09/16 Stop Date: 07/10/16 Status: CompletedLORazepam 1 mg, 0.5 mL, Route: IVP, Drug form: INJ, Q6H, Dosing Weight 79.3, kg, Start date: 07/10/16 18:00:00CST, Duration: 24 hr, Stop date: 07/11/16 12:00:00 SUPERVISOR ANODIZING Notes: (Same as: Ativan) Start Date: 07/10/16 Stop Date: 07/11/16 Status: CompletedLORazepam 4 mg, 2 mL, Route: IVP, Drug form: INJ, Q2H, Dosing Weight 79.3, kg, PRN Other - See Comment, CIWA Score 15-20, Start date: 07/08/16 15:33:00 SUPERVISOR ANODIZING, Duration: 30 day, Stop date: 08/07/16 15:32:00 SUPERVISOR ANODIZING Notes: (Same as: Ativan) Start Date: 07/08/16 Stop Date: 07/12/16 Status: DiscontinuedLORazepam 6 mg, 3 mL, Route: IVP, Drug form: INJ, Q2H, Dosing Weight 79.3, kg, PRN Other - See Comment, CIWA Score > 20, Start date: 07/08/16 15:33:00 SUPERVISOR ANODIZING, Duration: 30 day, Stop date: 08/07/16 15:32:00 SUPERVISOR ANODIZING Notes: (Same as: Ativan) Start Date: 07/08/16 Stop Date: 07/12/16 Status: DiscontinuedLORazepam 1 mg, 0.5 mL, Route: IVP, Drug form: INJ, Q12H, Dosing Weight 79.3, kg, Start date: 07/13/16 0:00:00CST, Duration: 24 hr, Stop date: 07/13/16 12:00:00 SUPERVISOR ANODIZING Notes: (Same as: Ativan) Start Date: 07/13/16 Stop Date: 07/11/16 Status: CanceledLORazepam 1 mg, 0.5 mL, Route: IVP, Drug form: INJ, Q8H, Dosing Weight 79.3, kg, Start date: 07/11/16 20:00:00CST, Duration: 24 hr, Stop date: 07/12/16 12:00:00 SUPERVISOR ANODIZING Notes: (Same as: Ativan) Start Date: 07/11/16 Stop Date: 07/11/16 Status: CanceledLORazepam 2 mg, 1 mL, Route: IVP, Drug form: INJ, Q2H, Dosing Weight 79.3, kg, PRN Other - See Comment, CIWA Score 8 -14, Start date: 07/08/16 15:33:00 SUPERVISOR ANODIZING, Duration: 30 day, Stop date: 08/07/16 15:32:00 SUPERVISOR ANODIZING Notes: (Same as: Ativan) Start Date: 07/08/16 Stop Date: 07/12/16 Status: DiscontinuedLORazepam 0.5 mg, 0.25 mL, Route: IVP, Drug form: INJ, Q3H, Dosing Weight 84.091, kg, PRN Agitation, Start date: 07/08/16 6:25:00 SUPERVISOR ANODIZING, Duration: 3 doses or times, Stop date: Limited # of times Notes: (Same as: Ativan) Start Date: 07/08/16 Stop Date: 07/08/16 Status: Discontinuedmagnesium oxide 800 mg, 2 tab, Route: PO, Drug form: TAB, PRN, Dosing Weight 79.3, kg, PRN Abnormal Lab Result, For NON-ICU Patients Only., Start date: 07/08/16 6:50:00 SUPERVISOR ANODIZING, Duration: 30 day, Stop date: 08/07/16 6:49:00 SUPERVISOR ANODIZING Notes: (Same as: Mag-Ox 400)Magnesium oxide 350ol=542gw elemental magnesiumDose= ____mg magnesium oxide (___mg elemental magnesium) Start Date: 07/08/16 Stop Date: 07/14/16 Status: Discontinuedmagnesium sulfate 1 gm, 100 mL, Route: IVPB, Drug form: INJ, PRN, Dosing Weight 79.3, kg, PRN Abnormal Lab Result, ForNON-ICU Patients Only., Start date: 07/08/16 6:50:00 SUPERVISOR ANODIZING , Duration: 30 day, Stop date: 08/07/16 6:49:00 SUPERVISOR ANODIZING Notes: WASTE: F/P - Sink; E - Municipal Trash Bin Start Date: 07/08/16 Stop Date: 07/14/16 Status: Discontinuedmagnesium sulfate 2 gm, 50 mL, Route: IVPB, Drug form: INJ, PRN, Dosing Weight 79.3, kg, PRN Abnormal Lab Result, For NON-ICU Patients Only., Start date: 07/08/16 6:50:00 SUPERVISOR ANODIZING, Duration: 30 day, Stop date: 08/07/16 6:49:00 SUPERVISOR ANODIZING Notes: WASTE: F/P - Sink; E - Municipal Trash Bin Start Date: 07/08/16 Stop Date: 07/14/16 Status: Discontinuedmetoprolol tartrate 50 mg, 1 tab, Route: PO, Drug form: TAB, Q12H, Dosing Weight 79.3, kg, Start date: 07/09/16 10:00:00CST, Stop date: 08/08/16 9:00:00 SUPERVISOR ANODIZING Notes: (Same as: Lopressor) Start Date: 07/09/16 Stop Date: 07/14/16 Status: Discontinuedmetoprolol tartrate 25 mg oral tablet 25 mg=1 tab, PO, BID, # 60 tab, 0 Refill(s) Start Date: 07/14/16 Stop Date: 08/13/16 Status: Orderedmorphine Sulfate 2 mg, 1 mL, Route: IVP, Drug form: SOLN, Q2H, Dosing Weight 79.3, kg, PRN Pain Score 7-10, Start date: 07/09/16 11:41:00 SUPERVISOR ANODIZING, Duration: 30 day, Stop date: 03/16 11:40:00 SUPERVISOR ANODIZING Start Date: 07/09/16 Stop Date: 07/12/16 Status: Discontinuedmorphine Sulfate 2 mg, 1 mL, Route: IVP, Drug form: SOLN, Q8H, Dosing Weight 79.3, kg, PRN Pain Score 7-10, Start date: 07/12/16 13:06:00 SUPERVISOR ANODIZING, Duration: 30 day, Stop date: 06/15 13:05:00 SUPERVISOR ANODIZING Start Date: 07/12/16 Stop Date: 07/14/16 Status: Discontinuedmorphine Sulfate 2 mg, 1 mL, Route: IV, Drug form: SOLN, Q4H, Dosing Weight 79.3, kg, PRN Pain Score 4-6, Start date:07/08/16 16:58:00 SUPERVISOR ANODIZING, Duration: 30 day, Stop date: 16:57:00 SUPERVISOR ANODIZING Start Date: 07/08/16 Stop Date: 07/12/16 Status: DiscontinuedMultiple Vitamins oral capsule 1 tab, PO, Breakfast, # 30 tab, 1 Refill(s) Start Date: 07/14/16 Status: OrderedNorco 5/325 oral tablet 1 tab, Route: PO, Drug Form: TAB, Dosing Weight 84.091, kg, Q6H, PRN Pain Score 4-6, Start date: 07/08/16 6:37:00 SUPERVISOR ANODIZING, Duration: 30 day, Stop date: 08/07/16 6: 36:00 SUPERVISOR ANODIZING Notes: (Same as: Starford 325/5) Do not exceed 4gm/day of acetaminophen. Start Date: 07/08/16 Stop Date: 07/12/16 Status: DiscontinuedNorco 5/325 oral tablet 1 tab, Route: PO, Drug Form: TAB, Dosing Weight 79.3, kg, Q4H, PRN Pain Score 7- 10, Start date: 07/12/16 13:06:00 SUPERVISOR ANODIZING, Duration: 30 day, Stop date: 08/11/16 13: 05:00 SUPERVISOR ANODIZING Notes: (Same as: Starford 325/5) Do not exceed 4gm/day of acetaminophen. Start Date: 07/12/16 Stop Date: 07/13/16 Status: Discontinuedondansetron 4 mg, 2 mL, Route: IVP, Drug form: INJ, Q4H, Dosing Weight 84.091, kg, PRN Nausea & Vomiting, Start date: 07/08/16 6:18:00 SUPERVISOR ANODIZING, Duration: 30 day, Stop date: 08/07/16 6:17:00 SUPERVISOR ANODIZING Notes: (Same as: Sugey) MEDICATION WASTE Product Size: 4 mgProduct Wasted: ___ mg Start Date: 07/08/16 Stop Date: 07/14/16 Status: Discontinuedondansetron 4 mg, 2 mL, Route: IVP, Drug form: INJ, ONCE, Dosing Weight 84.091, kg, Priority : STAT, Start date: 07/08/16 3:29:00 SUPERVISOR ANODIZING, Stop date: 07/08/16 3:29:00 SUPERVISOR ANODIZING Notes: (Same as: Sugey) MEDICATION WASTE Product Size: 4 mgProduct Wasted: _0__ mg Start Date: 07/08/16 Stop Date: 07/08/16 Status: Completedpotassium chloride 20 mEq, 15 mL, Route: NJ, Drug form: LIQ, PRN, Dosing Weight 79.3, kg, PRN Abnormal Lab Result, For NON-ICU Patients Only, Start date: 07/08/16 6:50:00 SUPERVISOR ANODIZING , Duration: 30 day, Stop date: 08/07/16 6:49:00 SUPERVISOR ANODIZING Notes: (Same as: Potassium Chloride) Start Date: 07/08/16 Stop Date: 07/14/16 Status: Discontinuedpotassium chloride 20 mEq, 1 tab, Route: PO, Drug form: ERTAB, PRN, Dosing Weight 79.3, kg, PRN Abnormal Lab Result, For NON-ICU Patients Only, Start date: 07/08/16 6:50:00 SUPERVISOR ANODIZING , Duration: 30 day, Stop date: 08/07/16 6:49:00 SUPERVISOR ANODIZING Notes: (Same as: K-Dur 20)"Do Not Crush" With food and full glass of water Start Date: 07/08/16 Stop Date: 07/14/16 Status: Discontinuedpotassium chloride 10 mEq, 100 mL, Route: IVPB, Drug form: INJ, PRN, Dosing Weight 79.3, kg, PRN Abnormal Lab Result, For NON-ICU Patients Only, Start date: 07/08/16 6:50:00 SUPERVISOR ANODIZING , Duration: 30 day, Stop date: 08/07/16 6:49:00 SUPERVISOR ANODIZING Notes: Infuse at a rate of 10 mEq/hr.(Same as: KCL) Start Date: 07/08/16 Stop Date: 07/14/16 Status: Discontinuedpotassium chloride 10 mEq, 100 mL, Route: IVPB, Drug form: INJ, Q1H, Dosing Weight 79.3, kg, Total Dose=60 meq, Start date: 07/10/16 7:00:00 SUPERVISOR ANODIZING, Duration: 6 doses or times, Stop date: 07/10/16 12:00:00 SUPERVISOR ANODIZING, Peripheral Line Notes: Infuse at a rate of 10 mEq/hr.(Same as: KCL) Start Date: 07/10/16 Stop Date: 07/10/16 Status: Completedpotassium phosphate + sodium chloride 0.9% INJ 250 mL 30 mmol, 10 mL, Route: IVPB, PRN, Dosing Weight 79.3, kg, PRN Abnormal Lab Result, For NON-ICU Patients Only., Start date: 07/08/16 6:50:00 SUPERVISOR ANODIZING, Duration: 30 day, Stop date: 08/07/16 6:49:00 SUPERVISOR ANODIZING Notes: (Same as: K Phosphate.) 1 mMol phoshate has 1.47 mEq potassium Infuse over 4 hours Start Date: 07/08/16 Stop Date: 07/14/16 Status: Discontinuedpotassium phosphate + sodium chloride 0.9% INJ 250 mL 15 mmol, 5 mL, Route: IVPB, PRN, Dosing Weight 79.3, kg, PRN Abnormal Lab Result , For NON-ICU Patients Only., Start date: 07/08/16 6:50:00 SUPERVISOR ANODIZING, Duration: 30 day , Stop date: 08/07/16 6:49:00 SUPERVISOR ANODIZING Notes: (Same as: K Phosphate.) 1 mMol phoshate has 1.47 mEq potassium Infuse over 4 hours Start Date: 07/08/16 Stop Date: 07/14/16 Status: Discontinuedpotassium phosphate-sodium phosphate 250 mg-280 mg-160 mg oral powder for reconstitution 2 pkt, Route: PO, Drug Form: PDR/REC, Dosing Weight 79.3, kg, PRN, PRN Abnormal Lab Result, For NON-ICU Patients Only, Start date: 07/08/16 6:50:00 SUPERVISOR ANODIZING, Duration: 30 day, Stop date: 08/07/16 6:49:00 SUPERVISOR ANODIZING Notes: (Same as: Phos-NaK) Each 1.5 gm pkt has 250mg phosphorous. Mix w/2.5oz water and stir. Start Date: 07/08/16 Stop Date: 07/14/16 Status: DiscontinuedProtonix 40 mg, 1 tab, Route: PO, Drug form: ECTAB, Before Dinner, Dosing Weight 79.3, kg , Start date: 07/09/16 16:30:00 SUPERVISOR ANODIZING, Duration: 30 day, Stop date: 08/07/16 16:30 :00 SUPERVISOR ANODIZING Notes: Tablet should not be chewed or crushed.(Same as: Protonix) Start Date: 07/09/16 Stop Date: 07/14/16 Status: DiscontinuedProtonix 40 mg + BD Normal Saline Flush 10 mL Route: IVP, Before Dinner, Dosing Weight 84.091, kg, Patient is NPO, Start date : 07/08/16 16:30:00 SUPERVISOR ANODIZING, Duration: 30 day, Stop date: 08/06/16 16:30:00 SUPERVISOR ANODIZING Notes: For IV push reconstitute with 10 ml 0.9% sodium chloride and push over 2 minutes. (Same as: Protonix) Start Date: 07/08/16 Stop Date: 07/09/16 Status: DiscontinuedProtonix 40 mg oral enteric coated tablet 40 mg=1 tab, PO, Daily, # 30 tab, 0 Refill(s) Start Date: 07/14/16 Stop Date: 08/13/16 Status: OrderedSaline Flush 0.9% 10 mL, Route: IVP, Drug Form: INJ, Dosing Weight 84.091, kg, PRN, PRN Line Flush , Start date: 07/08/16 3:29:00 SUPERVISOR ANODIZING, Duration: 30 day, Stop date: 08/07/16 3:28: 00 SUPERVISOR ANODIZING Notes: (Same as: BD Posiflush) Start Date: 07/08/16 Stop Date: 07/14/16 Status: DiscontinuedSodium Chloride 0.9% (Bolus) IV 1,000 mL, 1,000 ml/hr, Infuse Over: 1 hr, Route: IV, 1,000, Drug form: INJ, ONCE , Priority: STAT, Dosing Weight 84.091 kg, Start date: 07/08/16 6:18:00 SUPERVISOR ANODIZING, Duration: 1 doses or times, Stop date: 07/08/16 6:18:00 SUPERVISOR ANODIZING Start Date: 07/08/16 Stop Date: 07/08/16 Status: Completedsodium chloride 0.9% 1000 ml INJ 1,000 mL 1,000 mL, Rate: 100 ml/hr, Infuse over: 10 hr, Route: IV, Dosing Weight 84.091 kg, Total Volume: 1,000, Start date: 07/08/16 6:18:00 SUPERVISOR ANODIZING, Stop date: 08/07/16 6 :17:00 SUPERVISOR ANODIZING Start Date: 07/08/16 Stop Date: 07/13/16 Status: Discontinuedsodium chloride 0.9% 1000 ml INJ 1,000 mL + M.V.I.-12 10 mL Daily + folic acid IV 1 mg Daily + thia 1,000 mL, Rate: 100 ml/hr, Infuse over: 10.1 hr, Route: IV, Dosing Weight 84.091 kg, Total Volume: 1,011.2, Start date: 07/08/16 5:26:00 SUPERVISOR ANODIZING, Duration: 1 doses or times, Stop date: 07/08/16 15:31:00 SUPERVISOR ANODIZING Start Date: 07/08/16 Stop Date: 07/08/16 Status: CompletedSodium Chloride 0.9% IV 25 mL, Route: IV, Start date: 07/08/16 3:38:00 SUPERVISOR ANODIZING, Duration: 30 day, Stop date : 08/07/16 3:37:00 SUPERVISOR ANODIZING, PRN Line Flush Start Date: 07/08/16 Stop Date: 07/14/16 Status: Discontinuedsodium phosphate + sodium chloride 0.9% INJ 250 mL 15 mmol, 5 mL, Route: IVPB, PRN, Dosing Weight 79.3, kg, PRN Abnormal Lab Result , For NON-ICU Patients Only., Start date: 07/08/16 6:50:00 SUPERVISOR ANODIZING, Duration: 30 day , Stop date: 08/07/16 6:49:00 SUPERVISOR ANODIZING Start Date: 07/08/16 Stop Date: 07/14/16 Status: Discontinuedsodium phosphate + sodium chloride 0.9% INJ 250 mL 30 mmol, 10 mL, Route: IVPB, PRN, Dosing Weight 79.3, kg, PRN Abnormal Lab Result, For NON-ICU Patients Only., Start date: 07/08/16 6:50:00 SUPERVISOR ANODIZING, Duration: 30 day, Stop date: 08/07/16 6:49:00 SUPERVISOR ANODIZING Start Date: 07/08/16 Stop Date: 07/14/16 Status: Discontinuedthiamine + sodium chloride 0.9% 50ml non PVC bag 95 mL 100 mg, 1 mL, Route: IV, ONCE, Dosing Weight 84.091, kg, Priority: STAT, Start date: 07/08/16 5:26:00 SUPERVISOR ANODIZING, Stop date: 07/08/16 5:26:00 SUPERVISOR ANODIZING Notes: (Same As: Vitamin B1) Start Date: 07/08/16 Stop Date: 07/08/16 Status: CompletedTums 500 mg, 1 tab, Route: CHEW, Drug form: CHEWTAB, TID, Dosing Weight 79.3, kg, PRN Indigestion, Priority: NOW, Start date: 07/10/16 2:39:00 SUPERVISOR ANODIZING, Duration: 30 day, Stop date: 08/09/16 2:38:00 SUPERVISOR ANODIZING Notes: (Same As: Tums)Calcium Carbonate 500 uj=710 mg elemental calcium Dose=_ mg calcium carbonate ( mg elemental calcium) Start Date: 07/10/16 Stop Date: 07/14/16 Status: DiscontinuedTylenol with Codeine #4 oral tablet 1 tab, Route: PO, Drug Form: TAB, Dosing Weight 79.3, kg, Q4H, PRN Pain Score 7- 10, Start date: 07/13/16 9:16:00 [employer], Duration: 30 day, Stop date: 08/12/16 9:15 :00 [employer] Start Date: 07/13/16 Stop Date: 07/13/16 Status: DiscontinuedZofran 4 mg, Route: IVP, Drug form: INJ, ONCE, Dosing Weight 84.091, kg, Priority: STAT , Start date: 07/08/16 5:23:00 [employer], Stop date: 07/08/16 5:23:00 [employer] Start Date: 07/08/16 Stop Date: 07/08/16 Status: CompletedZofran ODT 4 mg oral tablet, disintegrating 4 mg=1 tab, PO, BID, PRN Nausea and Vomiting, Dissolve tab under tongue, X 5 day , # 10 tab, 2 Refill(s) Start Date: 07/14/16 Stop Date: 07/29/16 Status: Ordered Results ELECTROLYTES Most recent to oldest 1 2 3 [Reference Range]: Sodium Lvl [135-145 mEq/L] 135 mEq/L 139 mEq/L 134 mEq/L (07/14/16 8:26 AM) (07/14/16 4:49 AM) *LOW* (07/11/16 4:12 AM) Potassium Lvl [3.5-5.1 3.9 mEq/L 4.5 mEq/L 3.6 mEq/L mEq/L] (07/14/16 8:26 AM) (07/14/16 4:49 AM) (07/11/16 4:12 AM) Chloride Lvl [95-109 mEq/L] 99 mEq/L 102 mEq/L 94 mEq/L (07/14/16 8:26 AM) (07/14/16 4:49 AM) *LOW* (07/11/16 4:12 AM) CO2 [24-32 mEq/L] 25 mEq/L 28 mEq/L 29 mEq/L (07/14/16 8:26 AM) (07/14/16 4:49 AM) (07/11/16 4:12 AM) AGAP [10.0-20.0 mEq/L] 14.9 mEq/L 13.5 mEq/L 14.6 mEq/L (07/14/16 8:26 AM) (07/14/16 4:49 AM) (07/11/16 4:12 AM) CHEM PANEL Most recent to oldest 1 2 3 [Reference Range]: Creatinine Lvl [0.50-1.40 0.73 mg/dL 0.75 mg/dL 0.71 mg/dL mg/dL] (07/14/16 8:26 AM) (07/14/16 4:49 AM) (07/11/16 4:12 AM) eGFR 107 mL/min/1.73m2 1 106 mL/min/1.73m2 2 109 mL/min/1.73m2 3 *NA* *NA* *NA* (07/14/16 8:26 AM) (07/14/16 4:49 AM) (07/11/16 4:12 AM) BUN [7-22 mg/dL] 8 mg/dL 7 mg/dL 7 mg/dL (07/14/16 8:26 AM) (07/14/16 4:49 AM) (07/11/16 4:12 AM) B/C Ratio [6-25] 9 10 14 (07/14/16 4:49 AM) (07/11/16 4:12 AM) (07/10/16 5:42 AM) Glucose Lvl [70-99 mg/dL] 97 mg/dL 95 mg/dL 128 mg/dL (07/14/16 8:26 AM) (07/14/16 4:49 AM) *HI* (07/11/16 4:12 AM) Total Protein [6.4-8.4 6.9 g/dL 6.2 g/dL 6.1 g/dL g/dL] (07/14/16 4:49 AM) *LOW* *LOW* (07/11/16 4:12 AM) (07/10/16 5:42 AM) Albumin Lvl [3.5-5.0 g/dL] 3.3 g/dL 2.9 g/dL 2.8 g/dL *LOW* *LOW* *LOW* (07/14/16 4:49 AM) (07/11/16 4:12 AM) (07/10/16 5:42 AM) Globulin [2.7-4.2 g/dL] 3.6 g/dL 3.3 g/dL 3.3 g/dL (07/14/16 4:49 AM) (07/11/16 4:12 AM) (07/10/16 5:42 AM) A/G Ratio [0.7-1.6] 0.9 0.9 0.8 (07/14/16 4:49 AM) (07/11/16 4:12 AM) (07/10/16 5:42 AM) Calcium Lvl [8.5-10.5 8.7 mg/dL 8.5 mg/dL 8.4 mg/dL mg/dL] (07/14/16 8:26 AM) (07/14/16 4:49 AM) *LOW* (07/11/16 4:12 AM) Phosphorus [2.5-4.5 mg/dL] 2.8 mg/dL 3.0 mg/dL 2.3 mg/dL (07/11/16 4:12 AM) (07/10/16 6:37 PM) *LOW* (07/10/16 5:42 AM) Magnesium Lvl [1.8-2.4 1.6 mg/dL 1.8 mg/dL 1.5 mg/dL mg/dL] *LOW* (07/10/16 6:37 PM) *LOW* (07/11/16 4:12 AM) (07/10/16 5:42 AM) ALT [0-65 unit/L] 99 unit/L 83 unit/L 79 unit/L *HI* *HI* *HI* (07/14/16 4:49 AM) (07/11/16 4:12 AM) (07/10/16 5:42 AM) AST [0-37 unit/L] 71 unit/L 113 unit/L 109 unit/L *HI* *HI* *HI* (07/14/16 4:49 AM) (07/11/16 4:12 AM) (07/10/16 5:42 AM) Alk Phos [39-136 unit/L] 118 unit/L 114 unit/L 114 unit/L (07/14/16 4:49 AM) (07/11/16 4:12 AM) (07/10/16 5:42 AM) Bili Total [0.2-1.3 mg/dL] 0.7 mg/dL 1.1 mg/dL 1.1 mg/dL (07/14/16 4:49 AM) (07/11/16 4:12 AM) (07/10/16 5:42 AM) Lipase Lvl [73-393 unit/L] 216 unit/L 372 unit/L 648 unit/L (07/11/16 4:12 AM) (07/10/16 5:42 AM) *HI* (07/09/16 6:52 AM) 1Result Comment: The eGFR is calculated [...] eGFR should be multiplied by the estimated BMI.3Result Comment: The eGFR is calculated using the [...] eGFR should be multiplied by the estimated BMI.LIPIDS Most recent to oldest [Reference Range]: 1 2 3 CHD Risk [4.00-7.30] 2.02 *LOW* (07/08/16 4:17 AM) Chol [<=199 mg/dL] 252 mg/dL *HI* (07/08/16 4:17 AM) Trig [<=149 mg/dL] 65 mg/dL (07/08/16 4:17 AM) HDL [>=61 mg/dL] 125 mg/dL (07/08/16 4:17 AM) LDL (Calculated) [<=99 mg/dL] 114 mg/dL *HI* (07/08/16 4:17 AM) VLDL 13 *NA* (07/08/16 4:17 AM) PARATHYROID PROFILE Most recent to oldest 1 2 3 [Reference Range]: Ca Ion WB [1.05-1.25 mMol/L] 1.07 mMol/L 1.04 mMol/L 0.97 mMol/L (07/11/16 4:12 AM) *LOW* *LOW* (07/10/16 6:37 PM) (07/10/16 10:43 AM) Ca Norm WB [1.05-1.25 1.11 mMol/L 1.09 mMol/L 1.02 mMol/L mMol/L] (07/11/16 4:12 AM) (07/10/16 6:37 PM) *LOW* (07/10/16 10:43 AM) DRUG SCREEN Most recent to oldest [Reference Range]: 1 2 3 U Amph Scr [Negative] Negative *NA* (07/08/16 5:07 AM) U Swati Scr [Negative] Negative *NA* (07/08/16 5:07 AM) U Benzodia Scr [Negative] Negative *NA* (07/08/16 5:07 AM) U Cocaine Scr [Negative] Negative *NA* (07/08/16 5:07 AM) U Opiate Scr [Negative] Negative *NA* (07/08/16 5:07 AM) U Phencyc Scr [Negative] Negative *NA* (07/08/16 5:07 AM) U Cannab Scr [Negative] Negative *NA* (07/08/16 5:07 AM) UDS Note See Note *NA* (07/08/16 5:07 AM) TOXICOLOGY Most recent to oldest [Reference Range]: 1 2 3 Etoh (%) .400 % 1 *CRIT* (07/08/16 4:17 AM) Ethanol Lvl 400 mg/dL 2 *CRIT* (07/08/16 4:17 AM) 1Result Comment: Critical Result(s) called to Stephanie at 07/08/2016 04:59_ by_ scarlet. Read backOK.2Result Comment: Critical Result(s) called to Stephanie at 07/08/2016 04:59_ by_scarlet. Read backOK.URINE AND STOOL Most recent to oldest [Reference Range]: 1 2 3 UA Turbidity [Clear] Clear Slight (07/10/16 10:09 AM) *ABN* (07/08/16 5:07 AM) UA Color [Yellow] Yellow Natalie *NA* *ABN* (07/10/16 10:09 AM) (07/08/16 5:07 AM) UA pH [5.0-8.0] 7.0 6.0 (07/10/16 10:09 AM) (07/08/16 5:07 AM) UA Spec Grav [<=1.030] 1.015 1.020 (07/10/16 10:09 AM) (07/08/16 5:07 AM) UA Glucose [Negative mg/dL] Negative mg/dL Negative mg/dL *NA* *NA* (07/10/16 10:09 AM) (07/08/16 5:07 AM) UA Blood [Negative] Negative Moderate (07/10/16 10:09 AM) *ABN* (07/08/16 5:07 AM) UA Ketones [Negative mg/dL] 20 mg/dL 20 mg/dL *ABN* *ABN* (07/10/16 10:09 AM) (07/08/16 5:07 AM) UA Protein [Negative mg/dL] Negative mg/dL 100 mg/dL (07/10/16 10:09 AM) *ABN* (07/08/16 5:07 AM) UA Urobilinogen [0.1-1.0 mg/dL] 4.0 mg/dL 2.0 mg/dL *HI* *HI* (07/10/16 10:09 AM) (07/08/16 5:07 AM) UA Bili [Negative] Negative Negative *NA* *NA* (07/10/16 10:09 AM) (07/08/16 5:07 AM) UA Leuk Est [Negative] Negative Negative (07/10/16 10:09 AM) (07/08/16 5:07 AM) UA Nitrite [Negative] Negative Negative (07/10/16 10:09 AM) (07/08/16 5:07 AM) UA WBC [0-5 /HPF] <1 /HPF 1 /HPF (07/10/16 10:09 AM) (07/08/16 5:07 AM) UA RBC [0-2 /HPF] 1 /HPF 19 /HPF (07/10/16 10:09 AM) *HI* (07/08/16 5:07 AM) UA Bacteria [None Seen /HPF] Occasional /HPF *NA* (07/08/16 5:07 AM) UA Sq Epi None Seen *NA* (07/10/16 10:09 AM) UA Sq Epi [Few /LPF] Occasional /LPF *NA* (07/08/16 5:07 AM) UA Hyal Cast [0-2 /LPF] 55 /LPF *HI* (07/08/16 5:07 AM) UA Mucus [None Seen /LPF] Few /LPF Many /LPF *NA* *ABN* (07/10/16 10:09 AM) (07/08/16 5:07 AM) HEMATOLOGY Most recent to oldest 1 2 3 [Reference Range]: WBC [3.7-10.4 K/CMM] 5.1 K/CMM 4.1 K/CMM 3.9 K/CMM (07/14/16 8:26 AM) (07/11/16 4:12 AM) (07/10/16 5:13 AM) RBC [4.70-6.10 M/CMM] 3.93 M/CMM 3.72 M/CMM 3.70 M/CMM *LOW* *LOW* *LOW* (07/14/16 8:26 AM) (07/11/16 4:12 AM) (07/10/16 5:13 AM) Hgb [14.0-18.0 g/dL] 12.3 g/dL 11.6 g/dL 11.6 g/dL *LOW* *LOW* *LOW* (07/14/16 8:26 AM) (07/11/16 4:12 AM) (07/10/16 5:13 AM) Hct [42.0-54.0 %] 35.6 % 33.3 % 33.9 % *LOW* *LOW* *LOW* (07/14/16 8:26 AM) (07/11/16 4:12 AM) (07/10/16 5:13 AM) MCV [80.0-94.0 fL] 90.7 fL 89.5 fL 91.6 fL (07/14/16 8:26 AM) (07/11/16 4:12 AM) (07/10/16 5:13 AM) MCH [27.0-31.0 pg] 31.3 pg 31.3 pg 31.4 pg *HI* *HI* *HI* (07/14/16 8:26 AM) (07/11/16 4:12 AM) (07/10/16 5:13 AM) MCHC [32.0-36.0 g/dL] 34.5 g/dL 35.0 g/dL 34.3 g/dL (07/14/16 8:26 AM) (07/11/16 4:12 AM) (07/10/16 5:13 AM) RDW [11.5-14.5 %] 16.4 % 16.1 % 16.2 % *HI* *HI* *HI* (07/14/16 8:26 AM) (07/11/16 4:12 AM) (07/10/16 5:13 AM) Platelet [133-450 K/CMM] 137 K/CMM 58 K/CMM 45 K/CMM (07/14/16 8:26 AM) *LOW* *LOW* (07/11/16 4:12 AM) (07/10/16 5:13 AM) MPV [7.4-10.4 fL] 7.1 fL 8.7 fL 7.9 fL *LOW* (07/11/16 4:12 AM) (07/10/16 5:13 AM) (07/14/16 8:26 AM) Segs [45.0-75.0 %] 63.6 % 75.2 % 71.3 % (07/14/16 8:26 AM) *HI* (07/10/16 5:13 AM) (07/11/16 4:12 AM) Lymphocytes [20.0-40.0 %] 18.6 % 12.5 % 16.8 % *LOW* *LOW* *LOW* (07/14/16 8:26 AM) (07/11/16 4:12 AM) (07/10/16 5:13 AM) Monocytes [2.0-12.0 %] 14.8 % 8.8 % 7.5 % *HI* (07/11/16 4:12 AM) (07/10/16 5:13 AM) (07/14/16 8:26 AM) Eosinophils [0.0-4.0 %] 2.2 % 3.1 % 3.9 % (07/14/16 8:26 AM) (07/11/16 4:12 AM) (07/10/16 5:13 AM) Basophils [0.0-1.0 %] 0.8 % 0.4 % 0.5 % (07/14/16 8:26 AM) (07/11/16 4:12 AM) (07/10/16 5:13 AM) Segs-Bands # [1.5-8.1 K/CMM] 3.2 K/CMM 3.1 K/CMM 2.7 K/CMM (07/14/16 8:26 AM) (07/11/16 4:12 AM) (07/10/16 5:13 AM) Lymphocytes # [1.0-5.5 0.9 K/CMM 0.5 K/CMM 0.6 K/CMM K/CMM] *LOW* *LOW* *LOW* (07/14/16 8:26 AM) (07/11/16 4:12 AM) (07/10/16 5:13 AM) Monocytes # [0.0-0.8 K/CMM] 0.8 K/CMM 0.4 K/CMM 0.3 K/CMM (07/14/16 8:26 AM) (07/11/16 4:12 AM) (07/10/16 5:13 AM) Eosinophils # [0.0-0.5 0.1 K/CMM 0.1 K/CMM 0.2 K/CMM K/CMM] (07/14/16 8:26 AM) (07/11/16 4:12 AM) (07/10/16 5:13 AM) RBC Morph Normal (07/10/16 5:13 AM) Plt Morph Normal (07/10/16 5:13 AM) PT [12.0-14.7 seconds] 12.8 seconds (07/08/16 4:17 AM) INR [0.85-1.17] 0.94 (07/08/16 4:17 AM) Heparin Ab(LINDA) [Negative] Positive 1 *CRIT* (07/08/16 5:44 PM) Pat Od Value .586 *NA* (07/08/16 5:44 PM) Pos CO Value .452 *NA* (07/08/16 5:44 PM) 1Result Comment: Critical Result(s) called to Asmita Mercado at 07/09/2016 13:53 by sr. Read back OK.BACTERIAL - SEROLOGY Most recent to oldest [Reference Range]: 1 2 3 MRSA by PCR Negative (07/08/16 5:44 PM) Immunizations Given and Recorded Vaccine Date Status Refusal Reason diphtheria/pertussis, acel/tetanus adult 07/08/16 Given pneumococcal 23-valent vaccine 06/14/16 Given Procedures Procedure Date Related Diagnosis Body Site Dental operation Pancreas operation Tonsillectomy Social History Social History Type Response Substance Abuse Use: None. Alcohol Current, Type Liquor. Frequency: Daily. Last use: immediately previous to admission. Smoking Status Never smoker; Previous treatment: None; Ready to change: No; Concerns about tobacco use in household: No; Exposure to Tobacco Smoke None; Cigarette Smoking Last 365 Days No; Reg Smoking Cessation Counseling No Assessment and Plan Extracted from: Title: Progress Note * Author: Beatriz Denis MD Date: 07/13/16 Impression and Plan Acute on chronic pancreatitis SIRS from pancreatitis - improving Left eye contusion from fall Syncope - related to ETOH intocication ETOH abuse- counselled on cessaion ETOH withdrawal Transaminitis - due to etoh use Thrombocytopenia - 2/2 etoh use / Heparin ab + Hypertension- metoprolol/ amlodipine Hyponatremia - Mild and asymptomatic Hypocalcemia/ hypophos and hypomagnesemia General deconditioning Will wean off on librium and iv pain meds Cont PT/OT F.u on Am labs Counselled on ETOH cessation Replace electrolytes per sliding scale DVt ppx - he is thrombocytopenic Anticipate D/c 1-2 days, awaiting eval by PT Extracted from: Title: Admission H&P Author: Grisel Torres MD Date: 07/08/16 Patient: DANNI HERNANDEZ Age: 50 years Sex: Male : 1965 Associated Diagnoses: None Author: Grisel Torres MD Chief Complaint "I got drunk and fell twice." History of Present Illness Mr. Hernandez is a 50-year-old male with significant past medical history for chronic pancreatitis and alcoholism who presents after a fall. Patient states that he got drunk last night and fell tw ice. Patient was evaluated in the ER found to have a left eye contusion and be intoxicated with alcohol as well as severely dehydrated and so we were asked to admit. Patient complains of left upper qu adrant nonradiating pain. Pain is 10/10. With no aggravating or relieving factors. Associated with nausea and vomiting. Patient states that he has had pancreatitis before and had multiple surgeries on his pancreas. Review of Systems Constitutional: No fever. Eye: Negative except as documented in history of present illness. Ear/Nose/Mouth/Throat: No ear pain. Respiratory: No shortness of breath. Cardiovascular: No chest pain. Gastrointestinal: Negative except as documented in history of present illness , No diarrhea, No constipation. Genitourinary: No dysuria. Endocrine: No cold intolerance. Immunologic: No malaise. Musculoskeletal: No joint pain, No muscle pain. Neurologic: No numbness, No tingling. All other systems are negative Health Status Allergies: Allergic Reactions (All) Severity Not Documented NKDA- No reactions were documented., Allergies (1) Active Reaction NKDA None Documented Histories Past Medical History: Active Chronic gastritis (SNOMED CT 0648075482) Chronic pancreatitis (SNOMED CT 697339776) Hepatic steatosis (SNOMED CT 6110553963) Hypertension (SNOMED CT 5354409770) Resolved Cerebrovascular accident (CVA) (SNOMED CT 586198482): Resolved. Asthma (SNOMED CT 4852844861): Resolved. Arthritis (SNOMED CT 5342790047): Resolved. Family History: Cancer Mother Procedure history: Tonsillectomy (242237348). Pancreas operation (636055030). Dental operation (285137359). Social History Social & Psychosocial Habits Alcohol 06/13/2016 Use: Current Type: Liquor Frequency: 1-2 times per month Substance Abuse 06/13/2016 Use: None Tobacco 07/08/2016 Use: Never smoker Previous treatment: None Ready to change: No Concerns about tobacco use in household: No Exposure to Tobacco Smoke None Cigarette Smoking Last 365 Days No Reg Smoking Cessation Counseling No . Physical Examination VS/Measurements Vital Signs (last 24 hrs) Last Charted Temp Oral 98.8 DegF (JUL 08:23) Heart Rate Peripheral 100 bpm (JUL 08:55) Resp Rate 16 BRMIN (JUL 08:) SBP H 148mmHg (JUL 08:55) DBP 88 mmHg (JUL 08:55) SpO2 99 % (JUL 08:55) Weight 84.091 kg (JUL 08:) Height 180.34 cm (JUL 08:) BMI 25.86 (JUL 08:) General: Alert and oriented, No acute distress. Eye: Eyelids: Upper and lower, Edematous, Ecchymotic. HENT: Normocephalic, Normal hearing. Mouth: Oral mucosa ( Dry ). Respiratory: Lungs are clear to auscultation, Respirations are non-labored, No chest wall tenderness. Cardiovascular: Regular rhythm, Tachycardia, No edema. Gastrointestinal: Soft, Non-distended, Normal bowel sounds. Abdomen: Left, Upper quadrant, Epigastric, Guarding, Tenderness, Not rigid. Musculoskeletal No swelling. No deformity. Integumentary: Warm, Dry, Intact, No rash. Neurologic: Alert, Oriented, No focal deficits, Cranial Nerves II-XII are grossly intact. Cognition and Speech: Oriented, Speech clear and coherent. Psychiatric: Cooperative, Appropriate mood & affect. Review / Management Results review: Labs (Last four charted values) WBC 7.1 (JUL 08) Hgb 14.3 (JUL 08) Hct 42.2 (JUL 08) Plt L 87 (JUL 08) Na 137 (JUL 08) K 3.5 (JUL 08) CO2 25 (JUL 08) Cl L 93 (JUL 08) Cr 0.83 (JUL 08) BUN 11 (JUL 08) Glucose Random H 119 (JUL 08) Ca L 8.2 (JUL 08) PT 12.8 (JUL 08) INR 0.94 (JUL 08) . Laboratory Results Reviewed labs Radiology results Reviewed radiologist's report ECG interpretation: Reviewed. Documentation reviewed: Reviewed prior records. Case discussed with: Tiffanie Altamirano DO. Impression and Plan Acute on chronic pancreatitis Severe dehydration with presumed alcoholic ketosis Alcohol dependence without withdrawal Left eye contusion Chronic Alcohol abuse Transaminitis secondary to alcohol abuse Thrombocytopenia secondary to chronic alcohol abuse Medical noncompliance Hypertension Hematuria Hypocalcemia PLAN: Admit Inpatient Keep NPO Pain Control Supportive care with IV fluids We will give fluid bolus now AM labs Repeat UA in a.m. Check ionized calcium, magnesium and phosphorus and replace electrolytes as needed DT precautions and start him on a Librium taper Resume medications recommended by GI on last visit Consult psych team and social work to assist in substance abuse rehab Further recommendations will depend on hospital course. Addendum by Grisel Torres MD Patient refusing librium secondary to on 07/08/2016 15:38 nausea and with concern for him going into full withdrawal symptoms, will place him on Alcohol Withdrawal protocol, transfer patient to ICU status and consult critical care.
--- OUTSIDE RECORDS SUMMARY | 2018-06-01 02:08 | XMS REPORT | Summary of Care ---
:[address] [facility] Address [address] [place] [address]- Encounter HQ Encntr_alihelen(FIN) [phone] Date(s): 08/05/16 - 08/09/16 [facility] [address] [place] [address]- [phone] Discharge Disposition: Home or Self Care Attending Physician: Jazmine Bryan MD Admitting Physician: Jazmine Bryan MD Vital Signs Most recent to oldest 1 2 3 [Reference Range]: Height 180.34 cm 180.34 cm (08/05/16 9:54 AM) (08/05/16 5:50 AM) Temperature Oral [96.4-99.1 98.3 DegF 98.3 DegF 98.1 DegF DegF] (08/09/16 11:52 AM) (08/09/16 7:40 AM) (08/09/16 4:33 AM) Blood Pressure [90-140/60-90 143/97 mmHg 146/103 mmHg 121/87 mmHg mmHg] *HI* *HI* (08/09/16 4:33 AM) (08/09/16 11:52 AM) (08/09/16 7:40 AM) Respiratory Rate [14-20 BRMIN] 18 BRMIN 18 BRMIN 20 BRMIN (08/09/16 11:52 AM) (08/09/16 7:40 AM) (08/09/16 4:33 AM) Peripheral Pulse Rate [60-100 90 bpm 96 bpm 85 bpm bpm] (08/09/16 11:52 AM) (08/09/16 7:40 AM) (08/09/16 4:33 AM) Weight 81.818 kg 81.818 kg (08/05/16 9:54 AM) (08/05/16 5:50 AM) Body Mass Index 25.16 m2 25.16 m2 (08/05/16 9:54 AM) (08/05/16 5:50 AM) Problem List Condition Effective Dates Status Health Status Informant Alcohol dependence with withdrawal Active delirium(Confirmed) Chronic gastritis(Confirmed) Active Chronic pancreatitis(Confirmed) Active Alcohol-induced chronic Active pancreatitis(Confirmed) Cerebrovascular accident Resolved (CVA)(Confirmed) Hepatic steatosis(Confirmed) Active Asthma(Confirmed) Resolved Hypertension(Confirmed) Active Arthritis(Confirmed) Resolved Allergies, Adverse Reactions, Alerts Substance Reaction Severity Status NKDA Active Medications amLODIPine 10 mg, PO, Daily, 0 Refill(s) Start Date: 08/05/16 Status: OrderedamLODIPine 10 mg, 1 tab, Route: PO, Drug form: TAB, Daily, Dosing Weight 81.818, kg, Start date: 08/06/16 9:00:00 MANDARIN TUTOR, Duration: 30 day, Stop date: 09/04/16 9:00:00 MANDARIN TUTOR Notes: (Same as: Norvasc) Start Date: 08/06/16 Stop Date: 08/09/16 Status: DiscontinuedAtivan 2 mg, 1 mL, Route: IVP, Drug form: INJ, Q6H, Dosing Weight 81.818, kg, PRN Withdrawal, Start date: 08/05/16 8:36:00 MANDARIN TUTOR, Duration: 30 day, Stop date: 09/04 8:35:00 MANDARIN TUTOR Notes: (Same as: Ativan) Start Date: 08/05/16 Stop Date: 08/06/16 Status: Voided With Resultsciprofloxacin ophthalmic 0.3% solution 2 drp, Route: BOTH EYES, Q4H, Drug form: SOLN, Start date: 08/05/16 16:00:00 MANDARIN TUTOR , Duration: 30 day, Stop date: 09/04/16 12:00:00 MANDARIN TUTOR Notes: (Same As: Ciloxan) Start Date: 08/05/16 Stop Date: 08/09/16 Status: Discontinuedciprofloxacin ophthalmic 0.3% solution 2 drp, BOTH EYES, Q4H, X 5 day, # 2 mL, 0 Refill(s), Pharmacy: [facility] [id number] Start Date: 08/09/16 Stop Date: 08/14/16 Status: Orderedclindamycin 300 mg, 2 cap, Route: PO, Drug form: CAP, ABXQ6H, Dosing Weight 81.818, kg, Start date: 08/08/16 13:00:00 MANDARIN TUTOR, Duration: 30 day, Stop date: 09/07/16 7:00: 00 MANDARIN TUTOR Notes: (Same As: Cleocin) Start Date: 08/08/16 Stop Date: 08/09/16 Status: Discontinuedclindamycin 150 mg oral capsule 300 mg=2 cap, PO, ABXQ6H, X 7 day, # 56 cap, 0 Refill(s), Pharmacy: [facility] [id number] Start Date: 08/09/16 Stop Date: 08/16/16 Status: OrderedcloNIDine 0.1 mg, 1 tab, Route: PO, Drug form: TAB, Q12H, Dosing Weight 81.818, kg, Start date: 08/05/16 9:00:00 MANDARIN TUTOR, Duration: 30 day, Stop date: 09/03/16 21:00:00 MANDARIN TUTOR Notes: (Same As: Catapres) Start Date: 08/05/16 Stop Date: 08/09/16 Status: DiscontinuedcloNIDine 0.1 mg oral tablet 0.1 mg=1 tab, PO, Q12H, # 60 tab, 0 Refill(s), Pharmacy: [facility] [id number] Start Date: 08/09/16 Stop Date: 09/08/16 Status: OrderedCreon 12,000 units oral delayed release capsule 1 cap, Route: PO, Drug Form: DRC, Dosing Weight 81.818, kg, TID, Start date: 12/14 17:00:00 MANDARIN TUTOR, Duration: 30 day, Stop date: 09/04/16 13:00:00 MANDARIN TUTOR Notes: (lipase 6,000 units, protease 19,000 units, amylase 30,000 units DRC) Same as: Latoya (Creon 6) Start Date: 08/05/16 Stop Date: 08/09/16 Status: DiscontinuedCreon 12,000 units oral delayed release capsule 1 cap, PO, TID, 0 Refill(s) Start Date: 08/05/16 Status: Ordereddocusate 100 mg, 1 cap, Route: PO, Drug form: CAP, BID, Dosing Weight 81.818, kg, PRN Constipation, Start date: 08/05/16 8:35:00 MANDARIN TUTOR, Duration: 30 day, Stop date: 02/13 8:34:00 MANDARIN TUTOR Notes: (Same as: Colace) (Do Not Crush) Start Date: 08/05/16 Stop Date: 08/09/16 Status: Discontinueddocusate sodium 100 mg oral capsule 100 mg=1 cap, PO, BID, PRN Constipation, # 14 cap, 0 Refill(s), Pharmacy: [facility] [id number] Start Date: 08/09/16 Stop Date: 08/16/16 Status: Orderedfamotidine 20 mg, 2 mL, Route: IVP, Drug form: INJ, Q12H, Dosing Weight 81.818, kg, Start date: 08/05/16 9:00:00 MANDARIN TUTOR, Duration: 30 day, Stop date: 09/03/16 21:00:00 MANDARIN TUTOR Notes: (Same as: Pepcid) Start Date: 08/05/16 Stop Date: 08/09/16 Status: DiscontinuedHaldol 5 mg, 1 mL, Route: IM, Drug form: INJ, Q4H, Dosing Weight 81.818, kg, PRN Agitation, Start date: 08/06/16 14:27:00 MANDARIN TUTOR, Duration: 30 day, Stop date: 09/05 14:26:00 MANDARIN TUTOR Notes: (Same as: Haldol) Start Date: 08/06/16 Stop Date: 08/09/16 Status: DiscontinuedhydrALAZINE 20 mg, 1 mL, Route: IVP, Drug form: INJ, Q4H, Dosing Weight 81.818, kg, PRN Hypertension, Start date: 08/05/16 8:37:00 MANDARIN TUTOR, Duration: 30 day, Stop date: 02/13 8:36:00 MANDARIN TUTOR Notes: (Same as: Apresoline) Start Date: 08/05/16 Stop Date: 08/09/16 Status: DiscontinuedLORazepam 1 mg, 0.5 mL, Route: IV, Drug form: INJ, Q2H, Dosing Weight 81.818, kg, PRN as needed for anxiety, Start date: 08/07/16 19:59:00 MANDARIN TUTOR, Duration: 30 day, Stop date: 09/06/16 19:58:00 MANDARIN TUTOR Notes: (Same as: Ativan) Start Date: 08/07/16 Stop Date: 08/09/16 Status: DiscontinuedLORazepam 2 mg, 1 mL, Route: IV, Drug form: INJ, Q8H, Dosing Weight 81.818, kg, Start date : 08/06/16 16:00:00 MANDARIN TUTOR, Duration: 30 day, Stop date: 09/05/16 8:00:00 MANDARIN TUTOR Notes: (Same as: Ativan) Start Date: 08/06/16 Stop Date: 08/07/16 Status: Discontinuedmagnesium sulfate 2 gm, 50 mL, Route: IVPB, Drug form: INJ, ONCE, Dosing Weight 81.818, kg, Total dose=2 gm, Start date: 08/06/16 14:31:00 MANDARIN TUTOR, Duration: 1 doses or times, Stop date: 08/06/16 14:31:00 MANDARIN TUTOR Notes: WASTE: F/P - Sink; E - Municipal Trash Bin Start Date: 08/06/16 Stop Date: 08/06/16 Status: Completedmagnesium sulfate 2 gm, Route: IVPB, Drug form: INJ, ONCE, Dosing Weight 81.818, kg, Total dose=2 gm, Start date: 08/07/16 15:05:00 MANDARIN TUTOR, Duration: 1 doses or times, Stop date: 15:05:00 MANDARIN TUTOR Start Date: 08/07/16 Stop Date: 08/07/16 Status: Deletedmagnesium sulfate 2 gm, 50 mL, Route: IVPB, Drug form: INJ, ONCE, Dosing Weight 81.818, kg, Total dose=2 gm, Start date: 08/07/16 8:13:00 MANDARIN TUTOR, Duration: 1 doses or times, Stop date: 08/07/16 8:13:00 MANDARIN TUTOR Notes: WASTE: F/P - Sink; E - Municipal Trash Bin Start Date: 08/07/16 Stop Date: 08/07/16 Status: Completedmetoprolol tartrate 25 mg, 1 tab, Route: PO, Drug form: TAB, Q12H, Dosing Weight 81.818, kg, Start date: 08/05/16 21:00:00 MANDARIN TUTOR, Duration: 30 day, Stop date: 09/04/16 9:00:00 MANDARIN TUTOR Notes: (Same as: Lopressor) Start Date: 08/05/16 Stop Date: 08/09/16 Status: Discontinuedmetoprolol tartrate 25 mg, PO, BID, 0 Refill(s) Start Date: 08/05/16 Status: Orderedmorphine Sulfate 4 mg, 1 mL, Route: IVP, Drug form: INJ, ONCE, Dosing Weight 81.818, kg, Priority : STAT, Start date: 08/05/16 7:45:00 MANDARIN TUTOR, Stop date: 08/05/16 7:45:00 MANDARIN TUTOR Notes: (Same as:MORPhine Sulfate) Start Date: 08/05/16 Stop Date: 08/05/16 Status: Completedmorphine Sulfate 2 mg, 1 mL, Route: IVP, Drug form: SOLN, Q4H, Dosing Weight 81.818, kg, PRN Pain Score 7-10, Start date: 08/05/16 8:35:00 MANDARIN TUTOR, Duration: 30 day, Stop date: 09/04/16 8:34:00 MANDARIN TUTOR Start Date: 08/05/16 Stop Date: 08/09/16 Status: Discontinuedmultivitamin 1 tab, Route: PO, Drug Form: TAB, Dosing Weight 81.818, kg, Daily, Start date: 08/06/16 9:00:00 MANDARIN TUTOR,Duration: 30 day, Stop date: 09/04/16 9:00:00 MANDARIN TUTOR Notes: (Same as:Thera)WASTE: F/P - Black; E - Municipal Trash Bin Take with food. Start Date: 08/06/16 Stop Date: 08/09/16 Status: Discontinuedmultivitamin 1 tab, PO, Daily, 0 Refill(s) Start Date: 08/05/16 Status: OrderedNS (Bolus) IV 1,000 mL, 1,000 ml/hr, Infuse Over: 1 hr, Route: IV, 1,000, Drug form: INJ, ONCE , Priority: STAT, Dosing Weight 81.818 kg, Start date: 08/05/16 7:45:00 MANDARIN TUTOR, Duration: 1 doses or times, Stop date: 08/05/16 7:45:00 MANDARIN TUTOR Start Date: 08/05/16 Stop Date: 08/05/16 Status: CompletedNS + KCL 20mEq/L 1000ml (Premix) 1,000 mL 1,000 mL, Rate: 150 ml/hr, Infuse over: 6.7 hr, Route: IV, Dosing Weight 81.818 kg, Total Volume: 1,000, Start date: 08/05/16 8:38:00 MANDARIN TUTOR, Duration: 30 day, Stop date: 09/04/16 8:37:00 MANDARIN TUTOR Notes: PREMIX IV - Do Not AlterWASTE: F/P - Sink; E - Municipal Trash Bin Start Date: 08/05/16 Stop Date: 08/09/16 Status: DiscontinuedPepcid 40 mg, PO, Daily, PRN acid reflux, 0 Refill(s) Start Date: 08/05/16 Status: OrderedPhenergan + sodium chloride 0.9% 50ml non PVC bag 50 mL 25 mg, 1 mL, Route: IV Central, Q4H, Dosing Weight 81.818, kg, PRN Nausea & Vomiting, Start date: 08/05/16 8:34:00 MANDARIN TUTOR, Duration: 30 day, Stop date: 8:33:00 MANDARIN TUTOR Notes: Do not give IV push. (Same as: Phenergan) Start Date: 08/05/16 Stop Date: 08/09/16 Status: Discontinuedpotassium chloride 40 mEq, Route: PO, Drug form: ERTAB, Q4H, Dosing Weight 81.818, kg, Start date: 08/07/16 16:00:00 MANDARIN TUTOR, Duration: 2 doses or times, Stop date: 08/07/16 20:00:00 MANDARIN TUTOR Start Date: 08/07/16 Stop Date: 08/07/16 Status: Deletedpotassium chloride 40 mEq, 2 tab, Route: PO, Drug form: ERTAB, Q4Hnow, Dosing Weight 81.818, kg, Start date: 08/07/16 9:00:00 MANDARIN TUTOR, Duration: 2 doses or times, Stop date: 13:00:00 MANDARIN TUTOR Notes: (Same as: K-Dur 20)"Do Not Crush" With food and full glass of water Start Date: 08/07/16 Stop Date: 08/07/16 Status: Completedpotassium chloride 10 mEq, 100 mL, Route: IVPB, Drug form: INJ, Q1H, Dosing Weight 81.818, kg, Total Dose=20 meq, Startdate: 08/06/16 11:00:00 MANDARIN TUTOR, Duration: 2 doses or times , Stop date: 08/06/16 12:00:00 MANDARIN TUTOR, Peripheral Line Notes: Infuse at a rate of 10 mEq/hr.(Same as: KCL) Start Date: 08/06/16 Stop Date: 08/06/16 Status: CompletedSaline Flush 0.9% 10 mL, Route: IVP, Drug Form: INJ, Dosing Weight 81.818, kg, PRN, PRN Line Flush , Start date: 08/05/16 6:08:00 MANDARIN TUTOR, Duration: 30 day, Stop date: 09/04/16 6:07: 00 MANDARIN TUTOR Notes: (Same as: BD Posiflush) Start Date: 08/05/16 Stop Date: 08/09/16 Status: DiscontinuedSodium Chloride 0.9% (Bolus) IV 1,000 mL, 2,000 ml/hr, Infuse Over: 30 minutes, Route: IV, 1,000, Drug form: INJ , ONCE, Priority: STAT, Dosing Weight 81.818 kg, Start date: 08/05/16 6:08:00 MANDARIN TUTOR, Duration: 1 doses or times, Stop date:08/05/16 6:08:00 MANDARIN TUTOR Start Date: 08/05/16 Stop Date: 08/05/16 Status: Completedsodium chloride 0.9% 1000 ml INJ 1,000 mL + M.V.I.-12 10 mL Daily + folic acid IV 1 mg Daily + thia 1,000 mL, Rate: 100 ml/hr, Infuse over: 10.1 hr, Route: IV, Dosing Weight 81.818 kg, Total Volume: 1,011.2, Start date: 08/05/16 11:28:00 MANDARIN TUTOR, Duration: 3 day, Stop date: 08/08/16 11:27:00 MANDARIN TUTOR Start Date: 08/05/16 Stop Date: 08/08/16 Status: Completedsodium chloride 0.9% INJ 250 mL + potassium phosphate 30 mmol 250 mL, Rate: 62.5 ml/hr, Infuse over: 4.2 hr, Route: IV, Dosing Weight 81.818 kg, Total Volume: 260, Start date: 08/06/16 10:47:00 MANDARIN TUTOR, Duration: 1 doses or times, Stop date: 08/06/16 14:58:00 MANDARIN TUTOR Start Date: 08/06/16 Stop Date: 08/06/16 Status: CompletedSodium Chloride 0.9% IV 25 mL, Route: IV, Start date: 08/05/16 6:15:00 MANDARIN TUTOR, Duration: 30 day, Stop date : 09/04/16 6:14:00 MANDARIN TUTOR, PRN Line Flush Start Date: 08/05/16 Stop Date: 08/09/16 Status: DiscontinuedSodium Chloride 0.9% IV 250 mL + potassium phosphate 30 mmol 250 mL, Rate: 62.5 ml/hr, Infuse over: 4 hr, Route: IV, Dosing Weight 81.818 kg , Total Volume: 250, Start date: 08/06/16 14:31:00 MANDARIN TUTOR, Duration: 1 doses or times, Stop date: 08/06/16 18:30:00 MANDARIN TUTOR Start Date: 08/06/16 Stop Date: 08/06/16 Status: DiscontinuedTylenol with Codeine #3 oral tablet 1 - 2 tab, PO, Q4H, PRN Pain, X 3 day, # 20 tab, 0 Refill(s) Start Date: 08/09/16 Stop Date: 08/12/16 Status: OrderedZofran 4 mg, 2 mL, Route: IVP, Drug form: INJ, ONCE, Dosing Weight 81.818, kg, Priority : STAT, Start date: 08/05/16 7:45:00 MANDARIN TUTOR, Stop date: 08/05/16 7:45:00 MANDARIN TUTOR Notes: (Same as: Zofran) MEDICATION WASTE Product Size: 4 mgProduct Wasted: 0 mg Start Date: 08/05/16 Stop Date: 08/05/16 Status: Completed Results ELECTROLYTES Most recent to oldest 1 2 3 [Reference Range]: Sodium Lvl [135-145 mEq/L] 136 mEq/L 137 mEq/L 134 mEq/L (08/09/16 4:28 AM) (08/08/16 3:27 AM) *LOW* (08/07/16 5:42 AM) Potassium Lvl [3.5-5.1 mEq/L] 4.0 mEq/L 3.6 mEq/L 3.0 mEq/L 1 (08/09/16 4:28 AM) (08/08/16 3:27 AM) *CRIT* (08/07/16 5:42 AM) Chloride Lvl [95-109 mEq/L] 101 mEq/L 101 mEq/L 95 mEq/L (08/09/16 4:28 AM) (08/08/16 3:27 AM) (08/07/16 5:42 AM) CO2 [24-32 mEq/L] 25 mEq/L 26 mEq/L 23 mEq/L (08/09/16 4:28 AM) (08/08/16 3:27 AM) *LOW* (08/07/16 5:42 AM) AGAP [10.0-20.0 mEq/L] 14.0 mEq/L 13.6 mEq/L 19.0 mEq/L (08/09/16 4:28 AM) (08/08/16 3:27 AM) (08/07/16 5:42 AM) 1Result Comment: Critical Result(s) called to Suzette Llamas RN at 08/07/2016 06: 33 by SB. Read back OK.CHEM PANEL Most recent to oldest 1 2 3 [Reference Range]: Creatinine Lvl [0.50-1.40 0.46 mg/dL 0.55 mg/dL 0.57 mg/dL mg/dL] *LOW* (08/08/16 3:27 AM) (08/07/16 5:42 AM) (08/09/16 4:28 AM) eGFR 129 mL/min/1.73m2 1 121 mL/min/1.73m2 2 119 mL/min/1.73m2 3 *NA* *NA* *NA* (08/09/16 4:28 AM) (08/08/16 3:27 AM) (08/07/16 5:42 AM) BUN [7-22 mg/dL] 4 mg/dL 4 mg/dL 4 mg/dL *LOW* *LOW* *LOW* (08/09/16 4:28 AM) (08/08/16 3:27 AM) (08/07/16 5:42 AM) B/C Ratio [6-25] 9 10 10 (08/09/16 4:28 AM) (08/06/16 4:02 AM) (08/05/16 6:39 AM) Glucose Lvl [70-99 mg/dL] 108 mg/dL 105 mg/dL 92 mg/dL *HI* *HI* (08/07/16 5:42 AM) (08/09/16 4:28 AM) (08/08/16 3:27 AM) Total Protein [6.4-8.4 6.2 g/dL 6.7 g/dL 6.6 g/dL g/dL] *LOW* (08/07/16 5:42 AM) (08/06/16 4:02 AM) (08/09/16 4:28 AM) Albumin Lvl [3.5-5.0 g/dL] 3.1 g/dL 3.2 g/dL 3.2 g/dL *LOW* *LOW* *LOW* (08/09/16 4:28 AM) (08/07/16 5:42 AM) (08/06/16 4:02 AM) Globulin [2.7-4.2 g/dL] 3.1 g/dL 3.5 g/dL 3.4 g/dL (08/09/16 4:28 AM) (08/07/16 5:42 AM) (08/06/16 4:02 AM) A/G Ratio [0.7-1.6] 1.0 0.9 0.9 (08/09/16 4:28 AM) (08/07/16 5:42 AM) (08/06/16 4:02 AM) Calcium Lvl [8.5-10.5 8.1 mg/dL 7.9 mg/dL 7.9 mg/dL mg/dL] *LOW* *LOW* *LOW* (08/09/16 4:28 AM) (08/08/16 3:27 AM) (08/07/16 5:42 AM) Phosphorus [2.5-4.5 mg/dL] 2.1 mg/dL 1.3 mg/dL 4 *LOW* *CRIT* (08/07/16 5:42 AM) (08/06/16 4:02 AM) Magnesium Lvl [1.8-2.4 2.1 mg/dL 1.7 mg/dL 1.7 mg/dL mg/dL] (08/08/16 3:27 AM) *LOW* *LOW* (08/07/16 5:42 AM) (08/06/16 4:02 AM) ALT [0-65 unit/L] 78 unit/L 42 unit/L 36 unit/L *HI* (08/07/16 5:42 AM) (08/06/16 4:02 AM) (08/09/16 4:28 AM) AST [0-37 unit/L] 109 unit/L 75 unit/L 62 unit/L *HI* *HI* *HI* (08/09/16 4:28 AM) (08/07/16 5:42 AM) (08/06/16 4:02 AM) Alk Phos [39-136 unit/L] 125 unit/L 133 unit/L 126 unit/L (08/09/16 4:28 AM) (08/07/16 5:42 AM) (08/06/16 4:02 AM) Bili Total [0.2-1.3 mg/dL] 0.9 mg/dL 1.5 mg/dL 1.8 mg/dL (08/09/16 4:28 AM) *HI* *HI* (08/07/16 5:42 AM) (08/06/16 4:02 AM) Bili Direct [0.0-0.3 mg/dL] 0.6 mg/dL *HI* (08/07/16 5:42 AM) Bili Indirect [0.0-1.0 0.9 mg/dL mg/dL] (08/07/16 5:42 AM) Lipase Lvl [73-393 unit/L] 327 unit/L 554 unit/L 755 unit/L (08/09/16 4:28 AM) *HI* *HI* (08/08/16 3:27 AM) (08/07/16 5:42 AM) 1Result Comment: The eGFR is calculated [...] eGFR should be multiplied by the estimated BMI.4Result Comment: Critical Result(s) called to Margaret at 08/06/2016 05:03_ by kala tanner_. Read back OK.CARDIAC ENZYMES Most recent to oldest [Reference Range]: 1 2 3 Total CK [12-191 unit/L] 285 unit/L *HI* (08/05/16 6:39 AM) CK MB [0.5-3.6 ng/mL] 1.8 ng/mL (08/05/16 6:39 AM) CK MB Index [0.0-2.5] 0.6 (08/05/16 6:39 AM) Troponin-I [0.00-0.40 ng/mL] <0.02 ng/mL (08/05/16 6:39 AM) TOXICOLOGY Most recent to oldest [Reference Range]: 1 2 3 Etoh (%) .148 % *NA* (08/05/16 6:39 AM) Ethanol Lvl 148 mg/dL *NA* (08/05/16 6:39 AM) HEMATOLOGY Most recent to oldest 1 2 3 [Reference Range]: WBC [3.7-10.4 K/CMM] 3.0 K/CMM 2.8 K/CMM 4.0 K/CMM *LOW* *LOW* (08/06/16 4:02 AM) (08/09/16 4:28 AM) (08/08/16 3:27 AM) RBC [4.70-6.10 M/CMM] 3.04 M/CMM 3.33 M/CMM 3.11 M/CMM *LOW* *LOW* *LOW* (08/09/16 4:28 AM) (08/08/16 3:27 AM) (08/06/16 4:02 AM) Hgb [14.0-18.0 g/dL] 10.1 g/dL 10.9 g/dL 10.4 g/dL *LOW* *LOW* *LOW* (08/09/16 4:28 AM) (08/08/16 3:27 AM) (08/06/16 4:02 AM) Hct [42.0-54.0 %] 29.3 % 32.0 % 29.4 % *LOW* *LOW* *LOW* (08/09/16 4:28 AM) (08/08/16 3:27 AM) (08/06/16 4:02 AM) MCV [80.0-94.0 fL] 96.3 fL 96.1 fL 94.5 fL *HI* *HI* *HI* (08/09/16 4:28 AM) (08/08/16 3:27 AM) (08/06/16 4:02 AM) MCH [27.0-31.0 pg] 33.1 pg 32.8 pg 33.3 pg *HI* *HI* *HI* (08/09/16 4:28 AM) (08/08/16 3:27 AM) (08/06/16 4:02 AM) MCHC [32.0-36.0 g/dL] 34.3 g/dL 34.1 g/dL 35.3 g/dL (08/09/16 4:28 AM) (08/08/16 3:27 AM) (08/06/16 4:02 AM) RDW [11.5-14.5 %] 15.7 % 15.2 % 15.4 % *HI* *HI* *HI* (08/09/16 4:28 AM) (08/08/16 3:27 AM) (08/06/16 4:02 AM) Platelet [133-450 K/CMM] 100 K/CMM 66 K/CMM 36 K/CMM *LOW* *LOW* *LOW* (08/09/16 4:28 AM) (08/08/16 3:27 AM) (08/06/16 4:02 AM) MPV [7.4-10.4 fL] 8.0 fL 7.6 fL 7.9 fL (08/09/16 4:28 AM) (08/08/16 3:27 AM) (08/06/16 4:02 AM) Segs [45.0-75.0 %] 71.9 % 75.8 % (08/06/16 4:02 AM) *HI* (08/05/16 6:39 AM) Lymphocytes [20.0-40.0 %] 17.2 % 14.6 % *LOW* *LOW* (08/06/16 4:02 AM) (08/05/16 6:39 AM) Monocytes [2.0-12.0 %] 9.2 % 8.9 % (08/06/16 4:02 AM) (08/05/16 6:39 AM) Eosinophils [0.0-4.0 %] 1.2 % 0.2 % (08/06/16 4:02 AM) (08/05/16 6:39 AM) Basophils [0.0-1.0 %] 0.5 % 0.5 % (08/06/16 4:02 AM) (08/05/16 6:39 AM) Segs-Bands # [1.5-8.1 K/CMM] 2.9 K/CMM 3.8 K/CMM (08/06/16 4:02 AM) (08/05/16 6:39 AM) Lymphocytes # [1.0-5.5 K/CMM] 0.7 K/CMM 0.7 K/CMM *LOW* *LOW* (08/06/16 4:02 AM) (08/05/16 6:39 AM) Monocytes # [0.0-0.8 K/CMM] 0.4 K/CMM 0.5 K/CMM (08/06/16 4:02 AM) (08/05/16 6:39 AM) PT [12.0-14.7 seconds] 14.3 seconds (08/05/16 6:39 AM) INR [0.85-1.17] 1.09 (08/05/16 6:39 AM) PTT [22.9-35.8 seconds] 33.1 seconds (08/05/16 6:39 AM) Immunizations Given and Recorded Vaccine Date Status Refusal Reason diphtheria/pertussis, acel/tetanus adult 07/08/16 Given pneumococcal 23-valent vaccine 06/14/16 Given Procedures Procedure Date Related Diagnosis Body Site Dental operation Pancreas operation Tonsillectomy Social History Social History Type Response Substance Abuse Use: None. Alcohol Current, Type Liquor. Frequency: 1-2 times per week. Last use: last night. Smoking Status Never smoker; Previous treatment: None; Ready to change: No; Concerns about tobacco use in household: No; Exposure to Tobacco Smoke None; Cigarette Smoking Last 365 Days No; Reg Smoking Cessation Counseling No Assessment and Plan No data available for this section
--- OUTSIDE RECORDS SUMMARY | 2018-06-01 02:08 | XMS REPORT | Summary of Care ---
:1965 Author Organization [facility] Address [address] [place] [address]- Encounter HQ Mathieu_bam(FIN) [id number] Date(s): 07/23/16 - 07/24/16 [facility] [address] [place] [address]- [phone] Discharge Diagnosis: Accidental fall Discharge Diagnosis: Laceration Discharge Diagnosis: Acute alcohol intoxication Discharge Disposition: Home or Self Care Attending Physician: Jez Phelps MD Vital Signs Most recent to oldest 1 2 3 [Reference Range]: Temperature Oral [96.4-99.1 98.1 DegF 97.8 DegF 98.3 DegF DegF] (07/24/16 12:00 AM) (07/23/16 7:44 PM) (07/23/16 11:13 AM) Blood Pressure [90-140/60-90 164/95 mmHg 154/82 mmHg 130/78 mmHg mmHg] *HI* *HI* (07/23/16 7:44 PM) (07/24/16 12:00 AM) (07/23/16 10:00 PM) Respiratory Rate [14-20 18 BRMIN 20 BRMIN 20 BRMIN BRMIN] (07/24/16 12:00 AM) (07/23/16 10:00 PM) (07/23/16 7:44 PM) Peripheral Pulse Rate 91 bpm 94 bpm 84 bpm [60-100 bpm] (07/24/16 12:00 AM) (07/23/16 10:00 PM) (07/23/16 7:44 PM) Problem List Condition Effective Dates Status Health Status Informant Alcohol dependence with withdrawal Active delirium(Confirmed) Chronic gastritis(Confirmed) Active Chronic pancreatitis(Confirmed) Active Alcohol-induced chronic Active pancreatitis(Confirmed) Cerebrovascular accident Resolved (CVA)(Confirmed) Hepatic steatosis(Confirmed) Active Asthma(Confirmed) Resolved Hypertension(Confirmed) Active Arthritis(Confirmed) Resolved Allergies, Adverse Reactions, Alerts Substance Reaction Severity Status NKDA Active Medications acetaminophen 650 mg, 2 tab, Route: PO, Drug form: TAB, ONCE, Dosing Weight 79.3, kg, Priority : STAT, Start date: 07/23/16 11:43:00 [employer]LE [employer]UCK [employer]IVER, Stop date: 07/23/16 11:43:00 [employer]LE TRUCK DRIVER Notes: Do not exceed 4 gm/day. (Same as: Tylenol) Start Date: 07/23/16 Stop Date: 07/23/16 Status: Completedmorphine Sulfate 4 mg, 1 mL, Route: IVP, Drug form: INJ, ONCE, Dosing Weight 79.3, kg, Priority: STAT, Start date: 07/23/16 19:33:00 [employer]LE TRUCK DRIVER, Stop date: 07/23/16 19:33:00 POLE TRUCK DRIVER Notes: (Same as:MORPhine Sulfate) Start Date: 07/23/16 Stop Date: 07/23/16 Status: Completedmorphine Sulfate 4 mg, 1 mL, Route: IVP, Drug form: INJ, ONCE, Dosing Weight 79.3, kg, Priority: STAT, Start date: 07/23/16 18:34:00 POLE TRUCK DRIVER, Stop date: 07/23/16 18:34:00 POLE TRUCK DRIVER Notes: (Same as:MORPhine Sulfate) Start Date: 07/23/16 Stop Date: 07/23/16 Status: Completedmorphine Sulfate 4 mg, 1 mL, Route: IVP, Drug form: INJ, ONCE, Dosing Weight 79.3, kg, Priority: STAT, Start date: 07/23/16 17:45:00 POLE TRUCK DRIVER, Stop date: 07/23/16 17:45:00 POLE TRUCK DRIVER Notes: (Same as:MORPhine Sulfate) Start Date: 07/23/16 Stop Date: 07/23/16 Status: Completedondansetron 4 mg, 2 mL, Route: IVP, Drug form: INJ, ONCE, Dosing Weight 79.3, kg, Priority: STAT, Start date: 07/23/16 17:45:00 POLE TRUCK DRIVER, Stop date: 07/23/16 17:45:00 POLE TRUCK DRIVER Notes: (Same as: Sugey) MEDICATION WASTE Product Size: 4 mgProduct Wasted: _0__ mg Start Date: 07/23/16 Stop Date: 07/23/16 Status: Completedondansetron 4 mg, 2 mL, Route: IVP, Drug form: INJ, ONCE, Dosing Weight 79.3, kg, Priority: STAT, Start date: 07/23/16 20:41:00 POLE TRUCK DRIVER, Stop date: 07/23/16 20:41:00 POLE TRUCK DRIVER Notes: (Same as: Sugey) MEDICATION WASTE Product Size: 4 mgProduct Wasted: _0__ mg Start Date: 07/23/16 Stop Date: 07/23/16 Status: Completedpantoprazole 40 mg, Route: IVP, Drug form: INJ, ONCE, Dosing Weight 79.3, kg, Priority: STAT , Start date: 07/23/16 18:33:00 POLE TRUCK DRIVER, Stop date: 07/23/16 18:33:00 POLE TRUCK DRIVER Start Date: 07/23/16 Stop Date: 07/23/16 Status: CompletedSaline Flush 0.9% 10 mL, Route: IVP, Drug Form: INJ, Dosing Weight 79.3, kg, PRN, PRN Line Flush, Start date: 07/23/1710:43:00 POLE TRUCK DRIVER, Duration: 30 day, Stop date: 08/22/16 11:42: 00 POLE TRUCK DRIVER Notes: (Same as: BD Posiflush) Start Date: 07/23/16 Stop Date: 07/24/16 Status: DiscontinuedSodium Chloride 0.9% (Bolus) IV 1,000 mL, 2,000 ml/hr, Infuse Over: 0.5 hr, Route: IV, 1,000, Drug form: INJ, ONCE, Priority: STAT, Dosing Weight 79.3 kg, Start date: 07/23/16 11:43:00 POLE TRUCK DRIVER, Duration: 1 doses or times, Stop date: 07/23/16 11:43:00 POLE TRUCK DRIVER Start Date: 07/23/16 Stop Date: 07/23/16 Status: Completedsodium chloride 0.9% 1000 ml INJ 1,000 mL + M.V.I.-12 10 mL Daily + folic acid IV 1 mg Daily + thia 1,000 mL, Rate: 100 ml/hr, Infuse over: 10.1 hr, Route: IV, Dosing Weight 79.3 kg, Total Volume: 1,011.2, Start date: 07/23/16 14:20:00 POLE TRUCK DRIVER, Duration: 3 day, Stop date: 07/26/16 14:19:00 POLE TRUCK DRIVER Start Date: 07/23/16 Stop Date: 07/24/16 Status: DiscontinuedSodium Chloride 0.9% IV 25 mL, Route: IV, Start date: 07/23/16 11:49:00 POLE TRUCK DRIVER, Duration: 30 day, Stop date : 08/22/16 11:48:00 POLE TRUCK DRIVER, PRN Line Flush Start Date: 07/23/16 Stop Date: 07/24/16 Status: Discontinued Results ELECTROLYTES Most recent to oldest [Reference Range]: 1 Sodium Lvl [135-145 mEq/L] 144 mEq/L (07/23/16 11:50 AM) Potassium Lvl [3.5-5.1 mEq/L] 4.1 mEq/L (07/23/16 11:50 AM) Chloride Lvl [95-109 mEq/L] 104 mEq/L (07/23/16 11:50 AM) CO2 [24-32 mEq/L] 28 mEq/L (07/23/16 11:50 AM) AGAP [10.0-20.0 mEq/L] 16.1 mEq/L (07/23/16 11:50 AM) CHEM PANEL Most recent to oldest [Reference Range]: 1 Creatinine Lvl [0.50-1.40 mg/dL] 0.78 mg/dL (07/23/16 11:50 AM) eGFR 104 mL/min/1.73m2 1 *NA* (07/23/16 11:50 AM) BUN [7-22 mg/dL] 8 mg/dL (07/23/16 11:50 AM) B/C Ratio [6-25] 10 (07/23/16 11:50 AM) Glucose Lvl [70-99 mg/dL] 110 mg/dL *HI* (07/23/16 11:50 AM) Total Protein [6.4-8.4 g/dL] 8.1 g/dL (07/23/16 11:50 AM) Albumin Lvl [3.5-5.0 g/dL] 3.9 g/dL (07/23/16 11:50 AM) Globulin [2.7-4.2 g/dL] 4.2 g/dL (07/23/16 11:50 AM) A/G Ratio [0.7-1.6] 0.9 (07/23/16 11:50 AM) Calcium Lvl [8.5-10.5 mg/dL] 8.3 mg/dL *LOW* (07/23/16 11:50 AM) ALT [0-65 unit/L] 109 unit/L *HI* (07/23/16 11:50 AM) AST [0-37 unit/L] 106 unit/L *HI* (07/23/16 11:50 AM) Alk Phos [39-136 unit/L] 129 unit/L (07/23/16 11:50 AM) Bili Total [0.2-1.3 mg/dL] 0.3 mg/dL (07/23/16 11:50 AM) Lipase Lvl [73-393 unit/L] 62 unit/L *LOW* (07/23/16 11:50 AM) 1Result Comment: The eGFR is calculated [...] eGFR should be multiplied by the estimated BMI.DRUG SCREEN Most recent to oldest [Reference Range]: 1 U Amph Scr [Negative] Negative *NA* (07/23/16 2:11 PM) U Swati Scr [Negative] Negative *NA* (07/23/16 2:11 PM) U Benzodia Scr [Negative] Negative *NA* (07/23/16 2:11 PM) U Cocaine Scr [Negative] Negative *NA* (07/23/16 2:11 PM) U Opiate Scr [Negative] Positive *ABN* (07/23/16 2:11 PM) U Phencyc Scr [Negative] Negative *NA* (07/23/16 2:11 PM) U Cannab Scr [Negative] Negative *NA* (07/23/16 2:11 PM) UDS Note See Note (07/23/16 2:11 PM) TOXICOLOGY Most recent to oldest [Reference Range]: 1 Etoh (%) .388 % *CRIT* (07/23/16 11:50 AM) Ethanol Lvl 388 mg/dL 1 *CRIT* (07/23/16 11:50 AM) 1Result Comment: Critical Result(s) called to MELODIE JOHANSEN at 07/23/2016 12:25 _ by_MICKEY. Read back OK.URINE AND STOOL Most recent to oldest [Reference Range]: 1 UA Turbidity [Clear] Clear (07/23/16 2:11 PM) UA Color [Yellow] Light Yellow *NA* (07/23/16 2:11 PM) UA pH [5.0-8.0] 7.0 (07/23/16 2:11 PM) UA Spec Grav [<=1.030] 1.023 (07/23/16 2:11 PM) UA Glucose [Negative mg/dL] Negative mg/dL *NA* (07/23/16 2:11 PM) UA Blood [Negative] Negative (07/23/16 2:11 PM) UA Ketones [Negative mg/dL] Negative mg/dL *NA* (07/23/16 2:11 PM) UA Protein [Negative mg/dL] Negative mg/dL (07/23/16 2:11 PM) UA Urobilinogen [0.1-1.0 mg/dL] <=1.0 mg/dL *NA* (07/23/16 2:11 PM) UA Bili [Negative] Negative *NA* (07/23/16 2:11 PM) UA Leuk Est [Negative] Negative (07/23/16 2:11 PM) UA Nitrite [Negative] Negative (07/23/16 2:11 PM) UA Sq Epi None Seen *NA* (07/23/16 2:11 PM) HEMATOLOGY Most recent to oldest [Reference Range]: 1 WBC [3.7-10.4 K/CMM] 4.2 K/CMM (07/23/16 11:50 AM) RBC [4.70-6.10 M/CMM] 4.72 M/CMM (07/23/16 11:50 AM) Hgb [14.0-18.0 g/dL] 14.8 g/dL (07/23/16 11:50 AM) Hct [42.0-54.0 %] 44.1 % (07/23/16 11:50 AM) MCV [80.0-94.0 fL] 93.4 fL (07/23/16 11:50 AM) MCH [27.0-31.0 pg] 31.3 pg *HI* (07/23/16 11:50 AM) MCHC [32.0-36.0 g/dL] 33.5 g/dL (07/23/16 11:50 AM) RDW [11.5-14.5 %] 17.2 % *HI* (07/23/16 11:50 AM) Platelet [133-450 K/CMM] 374 K/CMM (07/23/16 11:50 AM) MPV [7.4-10.4 fL] 6.6 fL *LOW* (07/23/16 11:50 AM) Segs [45.0-75.0 %] 58.4 % (07/23/16 11:50 AM) Lymphocytes [20.0-40.0 %] 30.8 % (07/23/16 11:50 AM) Monocytes [2.0-12.0 %] 6.2 % (07/23/16 11:50 AM) Eosinophils [0.0-4.0 %] 2.7 % (07/23/16 11:50 AM) Basophils [0.0-1.0 %] 1.9 % *HI* (07/23/16 11:50 AM) Segs-Bands # [1.5-8.1 K/CMM] 2.5 K/CMM (07/23/16 11:50 AM) Lymphocytes # [1.0-5.5 K/CMM] 1.3 K/CMM (07/23/16 11:50 AM) Monocytes # [0.0-0.8 K/CMM] 0.3 K/CMM (07/23/16 11:50 AM) Eosinophils # [0.0-0.5 K/CMM] 0.1 K/CMM (07/23/16 11:50 AM) Basophils # [0.0-0.2 K/CMM] 0.1 K/CMM (07/23/16 11:50 AM) Immunizations Given and Recorded Vaccine Date [...]
--- OUTSIDE RECORDS SUMMARY | 2018-06-01 02:09 | XMS REPORT ---
:1965 [facility] Address [address] [place] [address] Care Team Providers Name Role Phone UNKNOWN, REFFERING Primary Care Provider Unavailable ZEV REDDY Unavailable Unavailable Problems This patient has no known problems. Allergies, Adverse Reactions, Alerts This patient has no known allergies or adverse reactions. Medications This patient has no known medications. Encounters Start End Encounter Admission Attending Care Care Encounter Date/Time Date/Time Type Type Clinicians Facility Department ID 2017-08-10 2017-08-[address] [facility] [id number] 23:10:00 23:10:00 ZEV Results Test Description Test Time Test Comments Text Results Atomic Results Result Comments XR CHEST 1 VIEW 2017-08-11 04:00:30 CHEST RADIOGRAPHAfter-hours services performed at 0243 hours.LOCATION: R16.INDICATION: Left rib pain.COMPARISON: None.TECHNIQUE: Frontal radiograph of the chest.FINDINGS:No focal airspace consolidation or pneumothorax is visualized. Thecardiomediastinal silhouette is normal. No acute fracture is visualized.IMPRESSION:No acute abnormality in the chest. Occult Blood 2017-08-11 03:46:00 Test Item Value Reference Range Comments Occ Bld (test code=HSOB) Negative Negative D-Dimer, [id number] 03:23:00 Test Item Value Reference Range Comments D-Dimer, Quant (test 271 ng/mL 0-500 Please note Change in unit of code=DDQNT) measure from mg/L FEU to ng/mLA cutoff of less than 500 ng/mL DD has a negative predictive value of100% for DVT bop530% for PE.When using D-Dimer to help rule out DVT or PE, clinical information anddisease probability should be considered.Elevated D-Dimer values are not specific for thromboembolism. 30137&PELVIS [id number] 01:38:12CT abdomen and pelvis with IV contrast.Indication: Abdominal painComparison: Radiology byLocation: A79Mgdayjudr: CT images of the abdomen and pelvis were obtained from thediaphragm to the pubic symphysis after the administration of IVcontrast. Coronal and sagittal reformats are provided.Findings:Lungsbases: Unremarkable.Patient motion artifact severely limits evaluation of the upper abdomen.Upper GI: questionable postsurgical changes are noted in the stomach, this evaluation is limited by patient motion.Liver: Unremarkable.Gallbladder: Distended, evaluation limited by motionPancreas: Unremarkable.Spleen: Unremarkable.Adrenal glands: Unremarkable.Kidneys: Unremarkable.Bowel: No bowel obstruction. Extensive stool is seen throughout thecolon compatible with clinical diagnosis of constipation. Air-filleddilation of the bowel is also noted The appendix is unremarkable.Peritoneum: No ascites or free air. Pelvis: No mass.Skeletal: No acute fracture or aggressive osseous lesion.Impression: Patient motion artifact severely limits evaluation of the upper abdomen.If Concern persists recommend repeat scan when patient better able tohold still. Extensive stool is seen throughout the colon compatible withclinical diagnosis of constipationTroponin [id number] 01:00:00 Test Item Value Reference Range Comments Troponin T (test code=MARY) <0.010 ng/mL 0.000-0.090 [id number] 01:00:00 Test Item Value Reference Range Comments Amphetamine (test code=AMPH) Negative Negative For diagnostic purposes only, positive results should always be assessedin conjunctionwith the patient's medical history,clinical examination and otherfindings.To fulfill legal requirements, a more specific alternate chemical methodmust be used inorder to obtain a Confirmed analytical result. GC/MS is the preferred confirmatory method. Barbiturates (test code=BURKE) Negative Negative Benzodiazepine (test Negative Negative code=ERIKA) Cocaine (test code=COCA) Negative Negative Methadone (test code=MTHD) Negative Negative Opiates (test code=OPIA) Negative Negative PCP (test code=PCP) Negative Negative Propoxyphene (test Negative Negative code=PROPOX) THC (test code=THC) Negative Negative Urinalysis [id number] 00:55:00 Test Item Value Reference Range Comments Color (test code=COLOR) Yellow Yellow,Straw,Pl yellow Clarity (test code=CLAR) Clear Clear Specific [place] (test code=SPGR) 1.017 1.001-1.035 pH (test code=PH) 5.0 5.0-9.0 Ketone (test code=KET) 15 mg/dL Negative Glucose (test code=GLUCUR) Negative mg/dL Negative Protein (test code=PROT) 75 mg/dL Negative Bilirubin (test code=BILI) Negative mg/dL Negative Occult Blood (test code=UDOB) Small Negative Urobilinogen (test code=UROB) 0.2 mg/dL 0.2-1.0 Nitrite (test code=NIT) Negative Negative Leuk Esterase (test code=LEUK) Negative Negative Micros Exam (test code=MEXAM) Indicated Epithelial Cells (test code=EPI) Few /LPF 0-30 WBC, Urine (test code=UWBC) 0-5 /HPF 0-5 RBC, Urine (test code=URBC) 0-3 /HPF 0-5 Bacteria (test code=BACT) Few /HPF Casts (test code=CASTS) 2-5 Hyaline /HPF Alcohol/Ethanol, [id number] 00:37:00 Test Item Value Reference Range Comments Alcohol, Ethyl (test 0.28 g/dL 0.00-0.01 Intoxicated 0.080 g/dL or code=ETOH) more Comprehensive Metabolic [id number] 00:37:00 Test Item Value Reference Range Comments Sodium (test code=NA) 140 mmol/L 135-145 Potassium (test code=K) 4.2 mmol/L 3.5-5.1 Chloride (test code=CL) 93 mmol/L 98-105 Carbon Dioxide (test 22 mmol/L 22-29 code=CO2) Glucose (test code=GLU) 107 mg/dL 70-115 Blood Urea Nitrogen 17 mg/dL 6-20 (test code=BUN) Creatinine (test 1.1 mg/dL 0.7-1.2 code=CREAT) Calcium (test code=CA) 9.3 mg/dL 8.3-10.5 Prot Total (test 8.0 g/dL 6.4-8.3 code=TP) Albumin (test code=ALB) 5.0 g/dL 3.5-5.2 A/G Ratio (test 1.7 Ratio code=AGRATIO) Globulin (test 3.0 2.9-3.1 code=GLOB) Bili Total (test 0.3 mg/dL 0.1-0.9 code=TBIL) Alk Phos (test 115 U/L 40-129 code=APHOS) AST (test code=AST) 40 U/L 1-40 ALT (test code=ALT) 22 U/L 1-41 BUN/Creatinine Ratio 15.5 (test code=BCRATIO) Anion Gap (test 25 mmol/L 7-16 code=AGAP) Estimated GFR (test >60 mL/min/1.73m2 eGFR (estimated Glomerular code=GFR) Filtration Rate) is an estimated value,calculated from the patient's serum creatinine using the MDRD equation.It is NOT the patient's actual GFR. The eGFR provides a more clinicallyuseful measure of kidney disease than serum creatinine alone.This calculation takes sex and race into account, if the informationis provided. If the race is not provided, and the patient isAfrican-Tristanian, multiply by 1.212. If sex is not provided, and thepatient is female, multiply by 0.742. Results for patients <18 years ofage have not been validated by the MDRD study and should be interpretedwith caution.eGFR Result Interpretation:eGFR > or=60 is in the Normal RangeeGFR < 60 may mean kidney diseaseeGFR < 15 may mean kidney failureRanges recommended by the National Kidney Foundation,http://nkdep.nih .gov [id number] 00:37:00 Test Item Value Reference Range Comments Lipase (test code=LIP) 8 U/L 13-60 CBC with [id number] 00:33:00 Test Item Value Reference Range Comments WBC (test code=WBC) 10.3 K/cumm 4.4-10.5 RBC (test code=RBC) 5.45 M/cumm 4.10-5.70 Hemoglobin (test code=HGB) 17.0 gm/dL 13.4-17.4 Hematocrit (test code=HCT) 50.3 % 38.7-52.0 MCV (test code=MCV) 92.3 fL 80-100 MCH (test code=MCH) 31.2 pg 27.0-32.5 MCHC (test code=MCHC) 33.7 g/dL 32.0-37.5 RDW (test code=RDW) 13.5 % 11.5-14.5 Platelet Count (test code=PLTCT) 261 K/cumm 140-440 MPV (test code=MPV) 6.7 fL Diff Method (test code=DIFFM) Auto Neutrophil (test code=NEUT) 78.3 % 36-70 Lymphocyte (test code=LYMPH) 15.8 % 12-44 Monocyte (test code=MONO) 3.8 % 0-11 Eosinophil (test code=EOS) 1.5 % 0-7 Basophil (test code=BASO) 0.5 % 0-2 Neutro Abs (test code=ANEUT) 8.1 K/cumm 1.6-7.4 Lymph Abs (test code=ALYMPH) 1.6 K/cumm 0.5-4.6 Berrien Abs (test code=AMONO) 0.4 K/cumm 0.0-1.2 Eos Abs (test code=AEOS) 0.16 K/cumm 0.00-0.74 Baso Abs (test code=ABASO) 0.1 K/cumm 0.00-0.21
--- OUTSIDE RECORDS SUMMARY | 2018-06-01 02:09 | XMS REPORT | Summary of Care ---
:1965 Author Organization [facility] Address [address] [place] [address]- Encounter HQ Juanntr_bam(FIN) [id number] Date(s): 09/05/16 - 09/11/16 [facility] [address] [place] [address]- [phone] Discharge Disposition: Home or Self Care Attending Physician: Sina Mayer MD Admitting Physician: Sina Mayer MD Vital Signs Most recent to oldest 1 2 3 [Reference Range]: Height 180.34 cm (09/05/16 6:27 PM) Temperature Oral [96.4-99.1 98.1 DegF 98.3 DegF 98.4 DegF DegF] (09/11/16 8:22 AM) (09/11/16 6:57 AM) (09/10/16 11:11 PM) Blood Pressure [90-140/60-90 146/94 mmHg 141/96 mmHg 131/91 mmHg mmHg] *HI* *HI* (09/10/16 11:11 PM) (09/11/16 8:22 AM) (09/11/16 6:57 AM) Respiratory Rate [14-20 BRMIN] 18 BRMIN 18 BRMIN 18 BRMIN (09/11/16 8:22 AM) (09/11/16 6:57 AM) (09/10/16 11:11 PM) Peripheral Pulse Rate [60-100 76 bpm 77 bpm 75 bpm bpm] (09/11/16 8:22 AM) (09/11/16 6:57 AM) (09/10/16 11:11 PM) Weight 81.818 kg (09/05/16 6:27 PM) Body Mass Index 25.16 m2 (09/05/16 6:27 PM) Problem List Condition Effective Dates Status Health Status Informant Alcohol dependence with withdrawal Active delirium(Confirmed) Chronic gastritis(Confirmed) Active Chronic pancreatitis(Confirmed) Active Alcohol-induced chronic Active pancreatitis(Confirmed) CHF (congestive heart Active failure)(Confirmed) Cerebrovascular accident Resolved (CVA)(Confirmed) Hepatic steatosis(Confirmed) Active Asthma(Confirmed) Resolved Hypertension(Confirmed) Active Arthritis(Confirmed) Resolved Allergies, Adverse Reactions, Alerts Substance Reaction Severity Status NKDA Active Medications chlordiazePOXIDE 25 mg oral capsule (Librium) 25 mg, 1 cap, Route: PO, Drug form: CAP, BID, Dosing Weight 81.818, kg, Alcohol Withdrawal, Start date: 09/10/16 9:00:00 CDT, Duration: 30 day, Stop date: 10/09 21:00:00 CDT Start Date: 09/10/16 Stop Date: 09/11/16 Status: DiscontinuedchlordiazePOXIDE 25 mg oral capsule (Librium) 25 mg, 1 cap, Route: PO, Drug form: CAP, Q6H, Dosing Weight 81.818, kg, Alcohol Withdrawal, Start date: 09/05/16 18:00:00 DISPATCHER CLERK, Duration: 30 day, Stop date: 02/13 12:00:00 CDT Start Date: 09/05/16 Stop Date: 09/09/16 Status: [id number] 1,000 mL 1,000 mL, Rate: 125 ml/hr, Infuse over: 8 hr, Route: IV, Dosing Weight 81.818 kg , Total Volume: 1,000, Start date: 09/05/16 17:47:00 DISPATCHER CLERK, Duration: 30 day, Stop date: 10/05/16 17:46:00 CDT Start Date: 09/05/16 Stop Date: 09/08/16 Status: Discontinueddocusate 100 mg, 1 cap, Route: PO, Drug form: CAP, BID, Dosing Weight 81.818, kg, PRN Constipation, Start date: 09/05/16 17:47:00 DISPATCHER CLERK, Duration: 30 day, Stop date: 17:46:00 CDT Notes: (Same as: Colace) (Do Not Crush) Start Date: 09/05/16 Stop Date: 09/11/16 Status: Discontinuedfolic acid 1 mg, 1 tab, Route: PO, Drug form: TAB, Daily, Dosing Weight 81.818, kg, Start date: 09/09/16 9:00:00 CDT, Duration: 30 day, Stop date: 10/08/16 9:00:00 CDT Notes: (Same as: Folvite) Start Date: 09/09/16 Stop Date: 09/11/16 Status: Discontinuedfolic acid 1 mg oral tablet 1 mg=1 tab, PO, Daily, # 30 tab, 0 Refill(s) Start Date: 09/10/16 Stop Date: 10/10/16 Status: Orderedinfluenza virus vaccine, inactivated 0.5 mL, Route: IM, Drug Form: SUSP, Daily, Start date: 09/06/16 9:00:00 DISPATCHER CLERK, Duration: 1 doses or times, Stop date: 09/06/16 9:00:00 DISPATCHER CLERK Notes: (Same as: Fluzone Quadrivalent, Fluarix Quadrivalent)For 3 years of age and older (0.5 mL IM)Shake well before use Start Date: 09/06/16 Stop Date: 09/06/16 Status: CompletedLORazepam 1 mg, 1 tab, Route: PO, Drug form: TAB, Q4H, Dosing Weight 81.818, kg, PRN Other -See Comment, Startdate: 09/05/16 17:47:00 DISPATCHER CLERK, Duration: 30 day, Stop date: 10/05/16 17:46:00 CDT, alcohol withdrawl Notes: (Same as: Ativan) Start Date: 09/05/16 Stop Date: 09/09/16 Status: Discontinuedmagnesium sulfate 2 gm, 50 mL, Route: IVPB, Drug form: INJ, Q2H, Dosing Weight 81.818, kg, Total dose=4 gm, Start date: 09/05/16 20:00:00 DISPATCHER CLERK, Duration: 2 doses or times, Stop date: 09/05/16 22:00:00 DISPATCHER CLERK Notes: WASTE: F/P - Sink; E - Municipal Trash Bin Start Date: 09/05/16 Stop Date: 09/05/16 Status: Completedmagnesium sulfate 2 gm in Water 50 ml 2 gm, 50 mL, Route: IVPB, Drug form: INJ, ONCE, Dosing Weight 81.818, kg, Start date: 09/06/16 8:18:00 DISPATCHER CLERK, Duration: 2 hr, Stop date: 09/06/16 8:18:00 DISPATCHER CLERK Notes: WASTE: F/P - Sink; E - Municipal Trash Bin Start Date: 09/06/16 Stop Date: 09/06/16 Status: Completedmetoprolol tartrate 25 mg, 1 tab, Route: PO, Drug form: TAB, BID, Dosing Weight 81.818, kg, Start date: 09/05/16 21:00:00 DISPATCHER CLERK, Duration: 30 day, Stop date: 10/05/16 9:00:00 CDT Notes: (Same as: Lopressor) Start Date: 09/05/16 Stop Date: 09/11/16 Status: Discontinuedmetoprolol tartrate 25 mg oral tablet 25 mg, PO, BID, # 60 tab, 0 Refill(s) Start Date: 09/10/16 Stop Date: 10/10/16 Status: Orderedmorphine Sulfate 4 mg, 1 mL, Route: IVP, Drug form: INJ, Q4H, Dosing Weight 81.818, kg, PRN Pain Score 7-10, Start date: 09/07/16 16:17:00 DISPATCHER CLERK, Duration: 30 day, Stop date: 04/15 16:16:00 CDT Notes: (Same as:MORPhine Sulfate) Start Date: 09/07/16 Stop Date: 09/09/16 Status: Discontinuedondansetron 4 mg, 2 mL, Route: IVP, Drug form: INJ, Q4H, Dosing Weight 81.818, kg, PRN Nausea & Vomiting, Start date: 09/05/16 17:47:00 DISPATCHER CLERK, Duration: 30 day, Stop date: 10/05/16 17:46:00 CDT Notes: (Same as: Zofran) MEDICATION WASTE Product Size: 4 mgProduct Wasted: ___ mg Start Date: 09/05/16 Stop Date: 09/11/16 Status: Discontinuedpotassium chloride 40 mEq, 2 tab, Route: PO, Drug form: ERTAB, Daily, Dosing Weight 81.818, kg, Start date: 09/06/16 9:00:00 DISPATCHER CLERK, Duration: 30 day, Stop date: 10/05/16 9:00:00 CDT Notes: (Same as: K-Dur 20)"Do Not Crush" With food and full glass of water Start Date: 09/06/16 Stop Date: 09/11/16 Status: Discontinuedpotassium chloride 10 mEq, 100 mL, Route: IVPB, Drug form: INJ, Q1H, Dosing Weight 81.818, kg, Total Dose=40 meq, Startdate: 09/06/16 9:00:00 DISPATCHER CLERK, Duration: 4 doses or times, Stop date: 09/06/16 12:00:00 DISPATCHER CLERK, Peripheral Line Notes: Infuse at a rate of 10 mEq/hr.(Same as: KCL) Start Date: 09/06/16 Stop Date: 09/06/16 Status: CompletedProtonix 40 mg, 1 tab, Route: PO, Drug form: ECTAB, Before Dinner, Dosing Weight 81.818, kg, Start date: 09/06/16 17:47:00 DISPATCHER CLERK, Duration: 30 day, Stop date: 10/06/16 16: 30:00 CDT Notes: Tablet should not be chewed or crushed.(Same as: Protonix) Start Date: 09/06/16 Stop Date: 09/07/16 Status: Voided With ResultsProtonix 40 mg, 1 tab, Route: PO, Drug form: ECTAB, Before Dinner, Dosing Weight 81.818, kg, Start date: 09/08/16 16:30:00 CDT, Duration: 30 day, Stop date: 10/07/16 16: 30:00 CDT Notes: Tablet should not be chewed or crushed.(Same as: Protonix) Start Date: 09/08/16 Stop Date: 09/11/16 Status: DiscontinuedSaline Flush 0.9% 10 ml, Route: IVP, Drug Form: INJ, Dosing Weight 81.818, kg, PRN, PRN Line Flush , Start date: 09/05/16 17:47:00 DISPATCHER CLERK, Duration: 30 day, Stop date: 10/05/16 18:46 :00 CDT Notes: (Same as: BD Posiflush) Start Date: 09/05/16 Stop Date: 09/11/16 Status: Discontinuedsodium chloride 0.9% 1000 ml INJ 1,000 mL + M.V.I.-12 10 mL Daily + folic acid IV 1 mg Daily + thia 1,000 mL, Rate: 100 ml/hr, Infuse over: 10.1 hr, Route: IV, Dosing Weight 81.818 kg, Total Volume: 1,011.2, Start date: 09/05/16 17:47:00 DISPATCHER CLERK, Duration: 3 day, Stop date: 09/08/16 17:46:00 CDT Start Date: 09/05/16 Stop Date: 09/08/16 Status: Completedsodium chloride 0.9% INJ 250 mL + potassium phosphate 30 mmol 250 mL, Rate: 62.5 ml/hr, Infuse over: 4.2 hr, Route: IV, Dosing Weight 81.818 kg, Total Volume: 260, Start date: 09/05/16 19:29:00 DISPATCHER CLERK, Duration: 1 doses or times, Stop date: 09/05/16 23:40:00 DISPATCHER CLERK Start Date: 09/05/16 Stop Date: 09/05/16 Status: CompletedSodium Chloride 0.9% IV 25 mL, Route: IV, Start date: 09/07/16 16:22:00 DISPATCHER CLERK, Duration: 30 day, Stop date : 10/07/16 17:21:00 CDT, PRN Line Flush Start Date: 09/07/16 Stop Date: 09/11/16 Status: Discontinuedthiamine 100 mg, 1 tab, Route: PO, Drug form: TAB, Daily, Dosing Weight 81.818, kg, Start date: 09/09/16 9:00:00 CDT, Duration: 30 day, Stop date: 10/08/16 9:00:00 CDT Notes: (Same As: Vitamin B1) Start Date: 09/09/16 Stop Date: 09/11/16 Status: Discontinuedthiamine 100 mg oral tablet 100 mg=1 tab, PO, Daily, X 30 day, # 30 tab, 0 Refill(s) Start Date: 09/10/16 Stop Date: 10/10/16 Status: OrderedTylenol with Codeine #3 oral tablet 1 tab, Route: PO, Drug Form: TAB, Dosing Weight 81.818, kg, Q4H, PRN Pain Score 1-3, Start date: 09/09/16 14:24:00 CDT, Duration: 30 day, Stop date: 10/09/16 14 :23:00 CDT Notes: Do not exceed 4gm/day of acetaminophen. (Same as: Tylenol with Codeine # 3) Start Date: 09/09/16 Stop Date: 09/11/16 Status: Discontinued Results ELECTROLYTES Most recent to oldest 1 2 3 [Reference Range]: Sodium Lvl [135-145 mEq/L] 139 mEq/L 139 mEq/L 138 mEq/L (09/10/16 4:28 AM) (09/09/16 6:10 AM) (09/08/16 6:00 AM) Potassium Lvl [3.5-5.1 4.2 mEq/L 4.0 mEq/L 3.8 mEq/L mEq/L] (09/10/16 4:28 AM) (09/09/16 6:10 AM) (09/08/16 6:00 AM) Chloride Lvl [95-109 mEq/L] 103 mEq/L 103 mEq/L 103 mEq/L (09/10/16 4:28 AM) (09/09/16 6:10 AM) (09/08/16 6:00 AM) CO2 [24-32 mEq/L] 25 mEq/L 25 mEq/L 23 mEq/L (09/10/16 4:28 AM) (09/09/16 6:10 AM) *LOW* (09/08/16 6:00 AM) AGAP [10.0-20.0 mEq/L] 15.2 mEq/L 15.0 mEq/L 15.8 mEq/L (09/10/16 4:28 AM) (09/09/16 6:10 AM) (09/08/16 6:00 AM) CHEM PANEL Most recent to oldest 1 2 3 [Reference Range]: Creatinine Lvl [0.50-1.40 0.69 mg/dL 0.58 mg/dL 0.58 mg/dL mg/dL] (09/10/16 4:28 AM) (09/09/16 6:10 AM) (09/08/16 6:00 AM) eGFR 110 mL/min/1.73m2 1 118 mL/min/1.73m2 2 118 mL/min/1.73m2 3 *NA* *NA* *NA* (09/10/16 4:28 AM) (09/09/16 6:10 AM) (09/08/16 6:00 AM) BUN [7-22 mg/dL] 4 mg/dL 3 mg/dL 1 mg/dL *LOW* *LOW* *LOW* (09/10/16 4:28 AM) (09/09/16 6:10 AM) (09/08/16 6:00 AM) B/C Ratio [6-25] 6 5 2 (09/10/16 4:28 AM) *LOW* *LOW* (09/09/16 6:10 AM) (09/08/16 6:00 AM) Glucose Lvl [70-99 mg/dL] 84 mg/dL 99 mg/dL 104 mg/dL (09/10/16 4:28 AM) (09/09/16 6:10 AM) *HI* (09/08/16 6:00 AM) Total Protein [6.4-8.4 5.7 g/dL 5.5 g/dL 5.9 g/dL g/dL] *LOW* *LOW* *LOW* (09/10/16 4:28 AM) (09/09/16 6:10 AM) (09/08/16 6:00 AM) Albumin Lvl [3.5-5.0 g/dL] 2.6 g/dL 2.7 g/dL 2.9 g/dL *LOW* *LOW* *LOW* (09/10/16 4:28 AM) (09/09/16 6:10 AM) (09/08/16 6:00 AM) Globulin [2.7-4.2 g/dL] 3.1 g/dL 2.8 g/dL 3.0 g/dL (09/10/16 4:28 AM) (09/09/16 6:10 AM) (09/08/16 6:00 AM) A/G Ratio [0.7-1.6] 0.8 1.0 1.0 (09/10/16 4:28 AM) (09/09/16 6:10 AM) (09/08/16 6:00 AM) Calcium Lvl [8.5-10.5 7.9 mg/dL 7.6 mg/dL 7.7 mg/dL mg/dL] *LOW* *LOW* *LOW* (09/10/16 4:28 AM) (09/09/16 6:10 AM) (09/08/16 6:00 AM) Phosphorus [2.5-4.5 mg/dL] 3.5 mg/dL 1.6 mg/dL (09/06/16 3:35 AM) *LOW* (09/05/16 6:30 PM) Magnesium Lvl [1.8-2.4 1.9 mg/dL 1.7 mg/dL 1.0 mg/dL mg/dL] (09/07/16 5:39 AM) *LOW* *CRIT* (09/06/16 3:35 AM) (09/05/16 6:30 PM) ALT [0-65 unit/L] 71 unit/L 66 unit/L 60 unit/L *HI* *HI* (09/08/16 6:00 AM) (09/10/16 4:28 AM) (09/09/16 6:10 AM) AST [0-37 unit/L] 117 unit/L 97 unit/L 119 unit/L *HI* *HI* *HI* (09/10/16 4:28 AM) (09/09/16 6:10 AM) (09/08/16 6:00 AM) Alk Phos [39-136 unit/L] 180 unit/L 170 unit/L 192 unit/L *HI* *HI* *HI* (09/10/16 4:28 AM) (09/09/16 6:10 AM) (09/08/16 6:00 AM) Bili Total [0.2-1.3 mg/dL] 0.8 mg/dL 0.8 mg/dL 1.1 mg/dL (09/10/16 4:28 AM) (09/09/16 6:10 AM) (09/08/16 6:00 AM) Amylase Lvl [25-115 unit/L] 33 unit/L (09/05/16 6:30 PM) Lipase Lvl [73-393 unit/L] 66 unit/L *LOW* (09/05/16 6:30 PM) 1Result Comment: The eGFR is calculated using [...] eGFR should be multiplied by the estimated BMI.IMMUNOLOGY Most recent to oldest [Reference Range]: 1 2 3 HIV 1/2 Ab [Negative] Negative *NA* (09/06/16 6:11 PM) Hep Bs Ag [Negative] Negative *NA* (09/06/16 6:11 PM) Hep B Core IgM [Negative] Negative *NA* (09/06/16 6:11 PM) Hep A IgM [Negative] Negative *NA* (09/06/16 6:11 PM) Hep C Ab Negative *NA* (09/06/16 6:11 PM) HEMATOLOGY Most recent to oldest 1 2 3 [Reference Range]: WBC [3.7-10.4 K/CMM] 3.0 K/CMM 3.8 K/CMM 3.4 K/CMM *LOW* (09/09/16 6:10 AM) *LOW* (09/10/16 4:28 AM) (09/08/16 6:00 AM) RBC [4.70-6.10 M/CMM] 3.37 M/CMM 3.32 M/CMM 3.45 M/CMM *LOW* *LOW* *LOW* (09/10/16 4:28 AM) (09/09/16 6:10 AM) (09/08/16 6:00 AM) Hgb [14.0-18.0 g/dL] 11.2 g/dL 11.0 g/dL 11.6 g/dL *LOW* *LOW* *LOW* (09/10/16 4:28 AM) (09/09/16 6:10 AM) (09/08/16 6:00 AM) Hct [42.0-54.0 %] 33.7 % 32.9 % 34.0 % *LOW* *LOW* *LOW* (09/10/16 4:28 AM) (09/09/16 6:10 AM) (09/08/16 6:00 AM) MCV [80.0-94.0 fL] 100.0 fL 99.4 fL 98.5 fL *HI* *HI* *HI* (09/10/16 4:28 AM) (09/09/16 6:10 AM) (09/08/16 6:00 AM) MCH [27.0-31.0 pg] 33.4 pg 33.2 pg 33.5 pg *HI* *HI* *HI* (09/10/16 4:28 AM) (09/09/16 6:10 AM) (09/08/16 6:00 AM) MCHC [32.0-36.0 g/dL] 33.3 g/dL 33.5 g/dL 34.0 g/dL (09/10/16 4:28 AM) (09/09/16 6:10 AM) (09/08/16 6:00 AM) RDW [11.5-14.5 %] 16.3 % 16.6 % 16.3 % *HI* *HI* *HI* (09/10/16 4:28 AM) (09/09/16 6:10 AM) (09/08/16 6:00 AM) Platelet [133-450 K/CMM] 106 K/CMM 96 K/CMM 73 K/CMM *LOW* *LOW* *LOW* (09/10/16 4:28 AM) (09/09/16 6:10 AM) (09/08/16 6:00 AM) MPV [7.4-10.4 fL] 8.3 fL 8.2 fL 8.1 fL (09/10/16 4:28 AM) (09/09/16 6:10 AM) (09/08/16 6:00 AM) Segs [45.0-75.0 %] 61.6 % 65.0 % 56.4 % (09/10/16 4:28 AM) (09/09/16 6:10 AM) (09/08/16 6:00 AM) Lymphocytes [20.0-40.0 %] 19.6 % 19.7 % 28.3 % *LOW* *LOW* (09/08/16 6:00 AM) (09/10/16 4:28 AM) (09/09/16 6:10 AM) Monocytes [2.0-12.0 %] 13.9 % 10.4 % 10.1 % *HI* (09/09/16 6:10 AM) (09/08/16 6:00 AM) (09/10/16 4:28 AM) Eosinophils [0.0-4.0 %] 3.8 % 4.0 % 4.4 % (09/10/16 4:28 AM) (09/09/16 6:10 AM) *HI* (09/08/16 6:00 AM) Basophils [0.0-1.0 %] 1.1 % 0.9 % 0.8 % *HI* (09/09/16 6:10 AM) (09/08/16 6:00 AM) (09/10/16 4:28 AM) Segs-Bands # [1.5-8.1 K/CMM] 1.8 K/CMM 2.5 K/CMM 1.9 K/CMM (09/10/16 4:28 AM) (09/09/16 6:10 AM) (09/08/16 6:00 AM) Lymphocytes # [1.0-5.5 0.6 K/CMM 0.7 K/CMM 1.0 K/CMM K/CMM] *LOW* *LOW* (09/08/16 6:00 AM) (09/10/16 4:28 AM) (09/09/16 6:10 AM) Monocytes # [0.0-0.8 K/CMM] 0.4 K/CMM 0.4 K/CMM 0.3 K/CMM (09/10/16 4:28 AM) (09/09/16 6:10 AM) (09/08/16 6:00 AM) Eosinophils # [0.0-0.5 0.1 K/CMM 0.2 K/CMM 0.1 K/CMM K/CMM] (09/10/16 4:28 AM) (09/09/16 6:10 AM) (09/08/16 6:00 AM) RBC Morph Normal (09/05/16 6:30 PM) Large Plt [None Seen] Moderate *ABN* (09/05/16 6:30 PM) Immunizations Given and Recorded Vaccine Date Status Refusal Reason diphtheria/pertussis, acel/tetanus adult 07/08/16 Given pneumococcal 23-valent vaccine 06/14/16 Given tuberculin purified protein derivative 09/06/16 Given Not Given Vaccine Date Status Refusal Reason influenza virus vaccine, inactivated 09/06/16 Not Given Patient Refuses Procedures Procedure Date Related Diagnosis Body Site Dental operation Pancreas operation Tonsillectomy Social History Social History Type Response Substance Abuse Use: None. Alcohol Current, Type Liquor. Frequency: 1-2 times per week. Last use: last night. Smoking Status Former smoker; Type: Cigarettes; Stopped at age: 17; Previous treatment: None; Ready to change: No; Concerns about tobacco use in household: No; Exposure to Tobacco Smoke None; Cigarette Smoking Last 365 Days No; Reg Smoking Cessation Counseling No Assessment and Plan Extracted from: Title: Progress Note * Author: Zenon Dumont MD Date: 09/08/16 Impression and Plan 1. Acute alcohol withdrawal on top of chronic alcoholism. 2. Suicidal ideation on admission , currently denies 3. Likely major depression. 4. Pancytopenia secondary to alcoholism. 5. Hypertension. continue current therapy, added ppi , monitor clinically discussed with nursing staff f/u psych evaluation in am
[2018-06-01] MEDS ORDERED: ONDANSETRON 4 MG/2 ML VIAL ONE (02:39)
[2018-06-01] MEDS ORDERED: Ringers Lactate 1,000 ML IV ONE (02:39)
[2018-06-01] MEDS ORDERED: MORPHINE 4 MG/ML SYR ONE (02:39)
[2018-06-01] MEDS ORDERED: MEPERIDINE HCL 50 MG/ML AMP ONE (03:05)
[2018-06-01 03:11] LABS: Absolute Lymphocytes (CBC) 2.2 K/uL (0.7-4.9); Absolute Monocytes 0.4 K/uL (0.1-1.3); Absolute Neutrophil 5.1 K/uL (1.8-8.0); Basophils % 0.6 % (0-1.3); Eosinophils % 4.8 % (0-4.4); Hematocrit 43.4 % (39.6-49.0); Lymphocytes % 27.4 % (15.3-44.8); MCH 31.6 pg (27.0-35.0); MCV 89.1 fL (80-100); Monocytes % 4.4 % (3.3-12.3); RBC Red Blood Cell Count 4.87 M/uL (4.33-5.43)
[2018-06-01 03:23] LABS: ALT/SGPT 26 U/L (12-78); AST/SGOT 24 U/L (15-37); Albumin 3.8 g/dL (3.4-5.0); Alkaline Phosphatase 135 U/L (45-117); BUN Blood Urea Nitrogen 14 mg/dL (7-18); Bicarbonate 25 mmol/L (21-32); Bilirubin Direct < 0.1 mg/dL (0-0.2); Bilirubin Total 0.3 mg/dL (0.2-1.0); Glucose Level 108 mg/dL (74-106); Lipase 37 U/L (73-393); Potassium 3.4 mmol/L (3.5-5.1); Protein, Total 7.5 g/dL (6.4-8.2); Sodium Level 141 mmol/L (136-145)
--- NOTE | 2018-06-01 05:42 | EDPHYS ---
Physician Documentation [facility] Name: Tl Hernandez Age: 52 yrs Sex: Male : 1965 Arrival Date: 06/01/2018 Time: 01:59 Bed 8 Private MD: ED Physician Fran Betts HPI: 06/01 02:14 This 52 yrs old Male presents to ER via Unassigned with complaints of jmm Vomiting, Abdominal Pain. 02:14 The patient presents to the emergency department with nausea, vomiting, abdominal pain. jmm Onset: The symptoms/episode began/occurred gradually, 3 day(s) ago. Possible causes: hx of pancreatitis. The symptoms are aggravated by nothing. The symptoms are alleviated by nothing. Associated signs and symptoms: Pertinent positives: abdominal pain. This is a 52 year old male with a history of pancreatitis that presents to the ED with epigastric abdominal pain beginning approx 3 days with vomiting. Patient states pain is similar to previous episodes of pancreatitis. . Historical: - Allergies: 02:39 No Known Allergies; aa1 - Home Meds: 02:39 None [Active]; aa1 - PMHx: 02:39 Hypertension; Pancreatitis; psoriatic arthritis; aa1 - PSHx: 02:39 Tonsillectomy; aa1 - Immunization history:: Flu vaccine is not up to date. - Social history:: Smoking status: Patient/guardian denies using tobacco. - Ebola Screening: : No symptoms or risks identified at this time. ROS: 02:14 Constitutional: Negative for fever, chills, and weight loss, Cardiovascular: Negative jmm for chest pain, palpitations, and edema, Respiratory: Negative for shortness of breath, cough, wheezing, and pleuritic chest pain. 02:14 Back: Negative for injury and pain, MS/Extremity: Negative for injury and deformity, Skin: Negative for injury, rash, and discoloration, Psych: Negative for depression, anxiety, suicide ideation, homicidal ideation, and hallucinations. 02:14 Abdomen/GI: Positive for abdominal pain, nausea, vomiting, and diarrhea. 02:14 All other systems are negative. Exam: 02:14 Head/Face: atraumatic. Eyes: EOMI, no conjunctival erythema appreciated ENT: Moist jmm Mucus Membranes Neck: Trachea midline, Supple Chest/axilla: Normal chest wall appearance and motion. Cardiovascular: Regular rate and rhythm. No edema appreciated Respiratory: Normal respirations, no respiratory distress appreciated 02:14 Back: Normal ROM Skin: General appearance color normal MS/ Extremity: Moves all extremities, no obvious deformities appreciated, no edema noted to the lower extremities Neuro: Awake and alert, normal gait Psych: Behavior is normal, Mood is normal, Patient is cooperative and pleasant 02:14 Constitutional: The patient appears alert, awake, in obvious pain, uncomfortable. 02:14 Abdomen/GI: Inspection: abdomen appears normal, Bowel sounds: normal, Palpation: soft, mild abdominal tenderness, in the left upper quadrant. Vital Signs: 02:18 BP 146 / 113; Pulse 103; Resp 18; Temp 98.3; Pulse Ox 94% on R/A; Weight 86.18 kg; aa1 Height 5 ft. 11 in. (180.34 cm); Pain 8/10; 03:25 BP 167 / 106; Pulse 93; Resp 16; Pulse Ox 93% on 2 lpm NC; aa1 04:00 BP 141 / 101; Pulse 88; Resp 16; Pulse Ox 93% on 2 lpm NC; aa1 06:24 BP 166 / 102; Pulse 82; Resp 14; Pulse Ox 94% on 2 lpm NC; aa1 07:00 BP 174 / 109; Pulse 84; Resp 16 S; Pulse Ox 96% on R/A; Pain 9/10; jl7 09:00 BP 137 / 100; Pulse 71; Resp 16; Pulse Ox 95% ; Pain 6/10; jl7 02:18 Body Mass Index 26.50 (86.18 kg, 180.34 cm) aa1 MDM: 02:13 Patient medically screened. [facility] 02:37 Data reviewed: vital signs, nurses notes. Transition of care: After a detail discussion [facility] of the patient's case, care is transferred to Fran Betts MD. 05:39 Differential diagnosis: pancreatitis. Counseling: I had a detailed discussion with the rn patient and/or guardian regarding: the historical points, exam findings, and any diagnostic results supporting the discharge/admit diagnosis, lab results, radiology results, the need for further work-up and treatment in the hospital. Response to treatment: the patient's symptoms have mildly improved after treatment, and as a result, I will admit patient. Admission orders: after a detailed discussion of the patient's condition and case, the admit orders are written by me. ED course: Pt still in pain, 2nd dose of pain meds dropped O2 sats to 67%, will be gentle with pain control from here, + chronic pancreatitis on CT, + known pseudocyst, will admit for pain control, notified Dr. Iglesias \T\ [id number]. Dr. [employer] counterperson today.. 06/01 02:14 Order name: Basic Metabolic Panel [facility] 06/01 02:14 Order name: CBC with Diff [facility] 06/01 02:14 Order name: Creatinine for Radiology [facility] 06/01 02:14 Order name: Hepatic Function [facility] 06/01 02:14 Order name: Lipase [facility] 06/01 03:13 Order name: CBC with Automated Diff; Complete Time: 03:34 EDPR 06/01 02:14 Order name: CT Abd/Pelvis - W/Contrast [facility] 06/01 03:22 Order name: Creatinine (Radiology Only); Complete Time: 03:34 EDPR 06/01 03:24 Order name: Basic Metabolic Panel; Complete Time: 03:34 [facility] 06/01 03:24 Order name: Liver (Hepatic) Function; Complete Time: 03:34 [facility] 06/01 03:24 Order name: Lipase; Complete Time: 03:34 [facility] 06/01 09:06 Order name: CT [facility] 06/01 02:14 Order name: IV Saline Lock; Complete Time: 02:[address] [facility] 06/01 02:14 Order name: Labs collected and sent; Complete Time: 02:[address] [facility] Administered Medications: 02:37 Drug: Zofran 4 mg Route: IVP; Site: left forearm; jd3 03:26 Follow up: Response: No adverse reaction; Nausea is decreased aa1 02:38 Drug: Lactated Ringers Solution 1000 ml Route: IV; Rate: 1000 bolus; Site: left forearm;jd3 02:38 Drug: morphine 4 mg Route: IVP; Site: left forearm; jd3 02:50 Follow up: Response: No adverse reaction; Pain is unchanged, physician notified aa1 02:58 Drug: Demerol 50 mg Route: IVP; Site: left forearm; aa1 Disposition: 06/01/18 05:41 Hospitalization ordered by Missy Iglesias for Inpatient Admission. Preliminary diagnosis are Other chronic pancreatitis, Intractable pain. - Bed requested for Telemetry/MedSurg (observation). - Status is Inpatient Admission. jl7 - Condition is Stable. - Problem is an acute exacerbation. - Symptoms have improved. UTI on Admission? No Addendum: 06/03/2018 08:00 Co-signature as Attending Physician, Fran Betts MD. r n Signatures: Dispatcher [employer] EDMS Doreen Chaidez RN RN aa1 Kiran Jarquin, RAYMUNDO PA [facility] Fran Betts MD MD rn Leal, Jahala, RN RN jl7 Maura Nation RN RN df Arnulfo Chavez RN RN jd3 Corrections: (The following items were deleted from the chart) 06/01 09:27 05:41 Hospitalization Ordered by Missy Iglesias MD for Inpatient Admission. Preliminary df diagnosis is Other chronic pancreatitis; Intractable pain. Bed requested for Telemetry/MedSurg (observation). Status is Inpatient Admission. Condition is Stable. Problem is an acute exacerbation. Symptoms have improved. UTI on Admission? No. rn 11:16 09:27 06/01/2018 05:41 Hospitalization Ordered by Missy Iglesias MD for Inpatient jl7 Admission. Preliminary diagnosis is Other chronic pancreatitis; Intractable pain. Bed requested for Telemetry/MedSurg (observation). Status is Inpatient Admission. Condition is Stable. Problem is an acute exacerbation. Symptoms have improved. UTI on Admission? No. df
--- NOTE | 2018-06-01 05:42 | ER ---
Nurse's Notes [facility] Name: Tl Hernandez Age: 52 yrs Sex: Male : 1965 Arrival Date: 06/01/2018 Time: 01:59 Bed 8 Private MD: Diagnosis: Other chronic pancreatitis;Intractable pain Presentation: 06/01 02:18 Presenting complaint: Patient states: he has a hx of pancreatitis and has been having a aa1 flare up for the past 4 days. C/O upper abd pain and N/V. Transition of care: patient was not received from another setting of care. Onset of symptoms was May 28, 2018. Risk Assessment: Do you want to hurt yourself or someone else? Patient reports no desire to harm self or others. Initial Sepsis Screen: Does the patient meet any 2 criteria? No. Patient's initial sepsis screen is negative. Does the patient have a suspected source of infection? No. Patient's initial sepsis screen is negative. Care prior to arrival: None. 02:18 Method Of Arrival: Ambulatory aa1 02:18 Acuity: GABRIELA 3 aa1 Historical: - Allergies: 02:39 No Known Allergies; aa1 - Home Meds: 02:39 None [Active]; aa1 - PMHx: 02:39 Hypertension; Pancreatitis; psoriatic arthritis; aa1 - PSHx: 02:39 Tonsillectomy; aa1 - Immunization history:: Flu vaccine is not up to date. - Social history:: Smoking status: Patient/guardian denies using tobacco. - Ebola Screening: : No symptoms or risks identified at this time. Screenin:40 Abuse screen: Denies threats or abuse. Denies injuries from another. Nutritional aa1 screening: No deficits noted. Tuberculosis screening: No symptoms or risk factors identified. Fall Risk None identified. Assessment: 02:40 General: Appears in no apparent distress. comfortable, Behavior is calm, cooperative, aa1 appropriate for age. Pain: Complains of pain in left upper quadrant Quality of pain is described as sharp, stabbing, Pain began 2-3 days ago. Is intermittent. Neuro: Level of Consciousness is awake, alert, obeys commands, Oriented to person, place, time, situation, Moves all extremities. Cardiovascular: Heart tones S1 S2 present Rhythm is regular. Respiratory: Airway is patent Respiratory effort is even, unlabored, Respiratory pattern is regular, symmetrical. GI: Abdomen is non-distended, Reports upper abdominal pain, nausea, vomiting. : No signs and/or symptoms were reported regarding the genitourinary system. EENT: No signs and/or symptoms were reported regarding the EENT system. Derm: Skin is intact, is healthy with good turgor, Skin is pink, warm \T\ dry. Musculoskeletal: Circulation, motion, and sensation intact. Capillary refill < 3 seconds. 03:05 Reassessment: Patient appears in no apparent distress at this time. Patient is alert, aa1 oriented x 3, equal unlabored respirations, skin warm/dry/pink. Pt O2 sat decreased to 70's while sleeping after demerol administration. MD at bedside and pt placed on O2 via nasal cannula which improved sat >90%. 04:30 Reassessment: Patient appears in no apparent distress at this time. Patient and/or aa1 family updated on plan of care and expected duration. Pain level reassessed. Patient is alert, oriented x 3, equal unlabored respirations, skin warm/dry/pink. Pt taken to CT. 05:45 Reassessment: Patient appears in no apparent distress at this time. Patient and/or aa1 family updated on plan of care and expected duration. Pain level reassessed. Patient is alert, oriented x 3, equal unlabored respirations, skin warm/dry/pink. Pt to be admitted; awaiting bed assignment. 07:15 Reassessment: Patient appears in no apparent distress at this time. Patient and/or jl7 family updated on plan of care and expected duration. Pain level reassessed. Patient is alert, oriented x 3, equal unlabored respirations, skin warm/dry/pink. Pt c/o pain and nausea, requesting meds, medicated as ordered on [employer], 1 mg Dilaudid IVP and 4 mg Zofran IVP. Vital Signs: 02:18 BP 146 / 113; Pulse 103; Resp 18; Temp 98.3; Pulse Ox 94% on R/A; Weight 86.18 kg; aa1 Height 5 ft. 11 in. (180.34 cm); Pain 8/10; 03:25 BP 167 / 106; Pulse 93; Resp 16; Pulse Ox 93% on 2 lpm NC; aa1 04:00 BP 141 / 101; Pulse 88; Resp 16; Pulse Ox 93% on 2 lpm NC; aa1 06:24 BP 166 / 102; Pulse 82; Resp 14; Pulse Ox 94% on 2 lpm NC; aa1 07:00 BP 174 / 109; Pulse 84; Resp 16 S; Pulse Ox 96% on R/A; Pain 9/10; jl7 09:00 BP 137 / 100; Pulse 71; Resp 16; Pulse Ox 95% ; Pain 6/10; jl7 02:18 Body Mass Index 26.50 (86.18 kg, 180.34 cm) aa1 ED Course: 01:59 Patient arrived in ED. es 02:13 Kiran Jarquin PA is PHCP. jmm 02:13 Fran Betts MD is Attending Physician. jm 02:18 Doreen Chaidez RN is Primary Nurse. aa1 02:18 Arm band placed on right wrist. aa1 02:23 Triage completed. aa1 02:29 Missed attempt(s): 20 gauge in left forearm. Bleeding controlled, band aid applied, jd3 catheter tip intact. 02:37 Inserted saline lock: 20 gauge in left forearm, using aseptic technique. Blood jd3 collected. 02:40 Patient has correct armband on for positive identification. Bed in low position. Call aa1 light in reach. Pulse ox on. NIBP on. 03:05 Oxygen administration via nasal cannula \T\ 2L/min. aa1 04:36 Patient moved to [place] via stretcher. kw1 04:46 CT completed. Patient tolerated procedure well. Patient moved back from IA. kw1 05:40 Missy Iglesias MD is Hospitalizing Provider. rn 10:07 No provider procedures requiring assistance completed. Patient admitted, IV remains in jl7 place. intact, No redness/swelling at site. Administered Medications: 02:37 Drug: Zofran 4 mg Route: IVP; Site: left forearm; jd3 03:26 Follow up: Response: No adverse reaction; Nausea is decreased aa1 02:38 Drug: Lactated Ringers Solution 1000 ml Route: IV; Rate: 1000 bolus; Site: left forearm;jd3 02:38 Drug: morphine 4 mg Route: IVP; Site: left forearm; jd3 02:50 Follow up: Response: No adverse reaction; Pain is unchanged, physician notified aa1 02:58 Drug: Demerol 50 mg Route: IVP; Site: left forearm; aa1 Outcome: 05:41 Decision to Hospitalize by Provider. rn 10:07 Admitted to Tele accompanied by tech, via wheelchair, room 420, with chart, Report jl7 called to KUSH Crow 10:07 Condition: stable 10:07 Discharge instructions given to patient, Instructed on the need for admit, Demonstrated understanding of instructions. 11:16 Patient left the ED. jl7 Signatures: Doreen Chaidez RN RN aa1 Kiran Jarquin PA PA jmm Salyer, Edna es Nieto, Roman, MD MD rn Leal, Jahala, RN RN jl7 Arnulfo Chavez RN RN jd3 Vero Garcia kw1 Corrections: (The following items were deleted from the chart) 02:38 02:38 morphine 4 mg IVP in left femoral jd3 jd3 04:42 03:30 Reassessment: Patient appears in no apparent distress at this time. Patient aa1 and/or family updated on plan of care and expected duration. Pain level reassessed. Patient is alert, oriented x 3, equal unlabored respirations, skin warm/dry/pink. Pt taken to CT aa1
[2018-06-01] MEDS ORDERED: ACETAMINOPHEN 500 MG TAB PO PRN (06:29)
[2018-06-01] MEDS ORDERED: HYDROMORPHONE HCL 1 MG/ML INJ IV PRN (06:31)
--- NOTE | 2018-06-01 06:37 | P.HP ---
Certification for Inpatient Patient admitted to: Inpatient With expected LOS: >2 Midnights Patient will require the following post-hospital care: None Practitioner: I am a practitioner with admitting privileges, knowledge of patient current condition, hospital course, and medical plan of care. Services: Services provided to patient in accordance with Admission requirements found in Title 42 Section 412.3 of the Code of Federal Regulations Patient History Date of Service: 06/01/18 Reason for admission: ACUTE ON CHRONIC PANCREATITIS History of Present Illness: Patient is a 52-year-old gentleman who came to the hospital with abdominal pain. Pain was mainly in the epigastric region. He states it radiated to his back. He has had similar complaints in the past. He has a known history of pancreatitis secondary to alcohol use. He states he has not had any alcohol in the last 7 months. However, he has had an upper respiratory infection over the last few days, and he states over those days he has been taking NyQuil at night. This is probably the etiology of his pancreatitis flare up. He will be admitted to the hospital for further treatment. He has had a history of chronic pancreatitis with complications including pseudocyst. He has also had prior stents placed. His CT performed in were waiting on the results. Will see if he still has a stent in place at this time. Patient be admitted to the hospital for inpatient. Allergies No Known Allergies Allergy (Unverified 06/01/18 04:19) - Past Medical/Surgical History -: Chronic pancreatitis -: Pancreatic pseudocyst -: History of alcohol abuse -: Psoriatic arthritis -: Hypertension -: ERCP -: Pancreatic pseudocyst drainage -: Tonsillectomy - Family History Father Family History: Reviewed- Non-Contributory - Social History Smoking Status: Never smoker Alcohol use: Yes CD- Drugs: No Review of Systems 10-point ROS is otherwise unremarkable Physical Examination - Vital Signs Temperature: 98 F Blood Pressure: 140/70 Pulse: 80 Respirations: 18 Pulse Ox (%): 96 - Physical Exam General: Alert, In no apparent distress, Oriented x3 HEENT: Atraumatic, Normocephalic, PERRLA, Mucous membr. moist/pink Neck: Supple, 2+ carotid pulse no bruit, JVD not distended, No Thyromegaly Respiratory: Clear to auscultation bilaterally, Normal air movement Cardiovascular: Regular rate/rhythm, Normal S1 S2, No murmurs Gastrointestinal: Soft and benign, No rebound, Distended, Tenderness, Guarding Musculoskeletal: No clubbing, No swelling, No contractures Integumentary: No rashes, No breakdown, No significant lesion Neurological: Normal gait, Normal speech, Normal strength at 5/5 x4 extr, Sensation intact, Cranial nerves 3-12 intact, Normal affect Lymphatics: No axilla or inguinal lymphadenopathy - Studies Laboratory Data (last 24 hrs) 06/01/18 02:41: Creatinine 0.90 06/01/18 02:41: WBC 8.2, Hgb 15.4, Hct 43.4, Plt Count 224 06/01/18 02:41: Sodium 141, Potassium 3.4 L, BUN 14, Creatinine 0.90, Glucose 108 H, Total Bilirubin 0.3, AST 24, ALT 26, Alkaline Phosphatase 135 H, Lipase 37 L Assessment & Plan - Problems (Diagnosis) (1) Acute on chronic pancreatitis Current Visit: Yes Status: Acute (2) Chronic alcoholic pancreatitis Current Visit: Yes Status: Acute (3) HTN (hypertension) Current Visit: Yes Status: Acute Qualifiers: Hypertension type: essential hypertension Qualified Code(s): I10 - Essential (primary) hypertension - Plan 1. Continue with IV hydration 2. Hold IV antibiotics 3. Continue with pain control 4. NPO 5. GI consultation; outpatient ERCP 6. Serial H&H, and we will monitor CBC, BMP, LFTs and lipase along with electrolytes. 7. GI and DVT prophylaxis Discharge Plan: Home Plan to discharge in: Greater than 2 days - Advance Directives Does patient have a Living Will: No Does patient have a Durable POA for Healthcare: No - Code Status/Comfort Care Code Status Assessed: Yes Code Status: Full Code Critical Care: No Time Spent Managing PTS Care (In Minutes): 45
[2018-06-01] MEDS: NA CHLORIDE 0.9% 1,000 ML IV SCH ×3 (07:00→23:00)
[2018-06-01] MEDS: ONDANSETRON 4 MG/2 ML VIAL IV PRN ×3 (07:18→22:21)
[2018-06-01] MEDS ORDERED: HYDROMORPHONE HCL 1 MG/ML INJ ONE (07:20)
--- NOTE | 2018-06-01 09:05 | RAD REPORT ---
EXAM DESCRIPTION: CT - Abdomen Pelvis W Contrast - 06/01/2018 6:08 am CLINICAL HISTORY: Abdominal pain/upper abdominal pain COMPARISON: none. TECHNIQUE: Computed axial tomography of the abdomen pelvis was obtained. 100 cc Isovue-300 was admin istered intravenously. Oral contrast was not requested which limits evaluation of bowel. Preliminary report generated by virtual radiologic and review prior to dictation All CT scans are performed using dose optimization technique as appropriate and may include automated exposure control or mA/KV adjustment according to patient size. FINDINGS: Mild fatty liver The spleen, adrenals and kidneys appear unremarkable. The pancreas is atrophic with dilatation of the pancreatic duct. 1.5 centimeter cystic lesion pancrea tic head. There is no evidence of diverticulitis. The appendix is normal. Small inguinal hernias contain fat. S pondylolysis L5 IMPRESSION: Atrophic pancreas with dilatation of the pancreatic duct indicative of chronic pancreati tis. A 1.5 centimeters cystic lesion pancreatic head may represent IMPT or pseudocyst. Follow-up imaging i n 6 months could be obtained to assess stability
[2018-06-01] MEDS ORDERED: PROMETHAZINE 25 MG/ML VIAL IV ONE (12:35)
[2018-06-01] MEDS ORDERED: MORPHINE 2 MG/ML SYR IV PRN (13:46)
[2018-06-01] MEDS: HYDROMORPHONE HCL 1 MG/ML INJ IV PRN (20:38)
[2018-06-01] MEDS ORDERED: METOPROLOL TAR 50 MG TAB PO ONE (23:52)
[2018-06-02] MEDS: HYDROMORPHONE HCL 1 MG/ML INJ IV PRN ×3 (00:43→08:49)
[2018-06-02] MEDS: NA CHLORIDE 0.9% 1,000 ML IV SCH ×5 (02:32→20:43)
[2018-06-02] MEDS: ONDANSETRON 4 MG/2 ML VIAL IV PRN ×2 (04:43→09:55)
[2018-06-02 07:06] LABS: Absolute Lymphocytes (CBC) 1.3 K/uL (0.7-4.9); Absolute Monocytes 0.6 K/uL (0.1-1.3); Absolute Neutrophil 4.4 K/uL (1.8-8.0); Basophils % 0.7 % (0-1.3); Eosinophils % 3.8 % (0-4.4); Hematocrit 39.4 % (39.6-49.0); Lymphocytes % 19.7 % (15.3-44.8); MCH 32.2 pg (27.0-35.0); MCV 89.8 fL (80-100); RBC Red Blood Cell Count 4.38 M/uL (4.33-5.43)
[2018-06-02 07:20] LABS: ALT/SGPT 20 U/L (12-78); AST/SGOT 19 U/L (15-37); Albumin 3.4 g/dL (3.4-5.0); Alkaline Phosphatase 128 U/L (45-117); BUN Blood Urea Nitrogen 10 mg/dL (7-18); Bicarbonate 25 mmol/L (21-32); Bilirubin Total 0.7 mg/dL (0.2-1.0); Glucose Level 92 mg/dL (74-106); HDL Cholesterol 64 mg/dL (40-60); LDL Cholesterol, Calculated 78 (<130); Lipase 35 U/L (73-393); Potassium 3.7 mmol/L (3.5-5.1); Protein, Total 6.7 g/dL (6.4-8.2); Sodium Level 138 mmol/L (136-145)
[2018-06-02] MEDS: METOPROLOL TAR 50 MG TAB PO SCH ×2 (08:49→20:39)
[2018-06-02] MEDS: PANTOPRAZOLE 40 MG INJ IVP SCH (08:49)
[2018-06-02] MEDS: SODIUM CHLORIDE 0.9% 10ML INJ IV SCH (08:57)
[2018-06-02] MEDS: TRAMADOL HCL 50 MG TAB PO PRN (13:27)
[2018-06-02] MEDS: ONDANSETRON 4 MG (ODT) TAB PO PRN ×2 (13:27→23:14)
[2018-06-02] MEDS ORDERED: MORPHINE 2 MG/ML SYR IV ONE (17:00)
--- NOTE | 2018-06-02 17:24 | P.PN ---
Subjective Date of Service: 06/02/18 Chief Complaint: ACUTE ON CHRONIC PANCREATITIS Subjective: Tolerating diet, Ambulating, Improving, Working w/ PT, Doing well Review of Systems 10-point ROS is otherwise unremarkable Physical Examination - Vital Signs Temperature: 97.9 F Blood Pressure: 170/104 Pulse: 66 Respirations: 18 Pulse Ox (%): 97 - Physical Exam General: Alert, In no apparent distress HEENT: Atraumatic, PERRLA, EOMI Neck: Supple, JVD not distended Respiratory: Clear to auscultation bilaterally, Normal air movement Cardiovascular: Regular rate/rhythm, Normal S1 S2 Gastrointestinal: Normal bowel sounds, No tenderness Musculoskeletal: No tenderness Integumentary: No rashes Neurological: Normal speech, Normal tone, Normal affect Lymphatics: No axilla or inguinal lymphadenopathy - Studies Medications List Reviewed: Yes Assessment And Plan - Current Problems (Diagnosis) (1) Acute on chronic pancreatitis Onset Date: 06/02/18 Current Visit: Yes Status: Acute Plan: Acute on chronic pancreatitis secondary to alcohol -IV fluids, pain management, advance diet as tolerated -doing well today. Will advance to a GI diet if tolerating well in 24-48 hr anticipate discharge (2) Chronic alcoholic pancreatitis Onset Date: 06/02/18 Current Visit: Yes Status: Chronic (3) HTN (hypertension) Onset Date: 06/02/18 Current Visit: Yes Status: Chronic Qualifiers: Hypertension type: essential hypertension Qualified Code(s): I10 - Essential (primary) hypertension - Plan Pending clinical improvement at this time. Will advance diet to a GI soft. If tolerating will discharge patient home in 24-48 hr. Discharge Plan: Home Plan to discharge in: 48 Hours - Code Status/Comfort Care Code Status Assessed: Yes Critical Care: No
[2018-06-02] MEDS ORDERED: HYDROMORPHONE HCL 0.5 MG/0.5 ML INJ IV ONE (20:54)
[2018-06-03] MEDS: HYDROCODONE/APAP 10/325 TAB PO PRN ×2 (03:15→09:01)
[2018-06-03] MEDS: NA CHLORIDE 0.9% 1,000 ML IV SCH (05:21)
[2018-06-03] MEDS: PANTOPRAZOLE 40 MG INJ IVP SCH (08:59)
[2018-06-03] MEDS: METOPROLOL TAR 50 MG TAB PO SCH (08:59)
[2018-06-03] MEDS: SODIUM CHLORIDE 0.9% 10ML INJ IV SCH (09:00)
[2018-06-03] MEDS ORDERED: ONDANSETRON 4 MG (ODT) TAB PO PRN (11:49)
[2018-06-03] MEDS: TRAMADOL HCL 50 MG TAB PO PRN (11:59)
--- NOTE | 2018-06-03 16:56 | P.SSS ---
Patient History Date of Service: 06/03/18 Reason for admission: ACUTE ON CHRONIC PANCREATITIS History of Present Illness: Patient is a 52-year-old gentleman who came to the hospital with abdominal pain. Pain was mainly in the epigastric region. He states it radiated to his back. He has had similar complaints in the past. He has a known history of pancreatitis secondary to alcohol use. He states he has not had any alcohol in the last 7 months. However, he has had an upper respiratory infection over the last few days, and he states over those days he has been taking NyQuil at night. This is probably the etiology of his pancreatitis flare up. He will be admitted to the hospital for further treatment. He has had a history of chronic pancreatitis with complications including pseudocyst. He has also had prior stents placed. His CT performed in were waiting on the results. Will see if he still has a stent in place at this time. Patient be admitted to the hospital for inpatient. Allergies Allergies No Known Allergies Allergy (Unverified 06/01/18 04:19) Home Medications: Ondansetron HCl [Zofran] 4 mg PO Q12H #10 tablet 06/03/18 Tramadol HCl [Ultram] 50 mg PO Q6H #20 tablet 06/03/18 - Past Medical/Surgical History Has patient received pneumonia vaccine in the past: No Diabetic: No -: Chronic pancreatitis -: Pancreatic pseudocyst -: History of alcohol abuse -: Psoriatic arthritis -: Hypertension -: ERCP -: Pancreatic pseudocyst drainage -: Tonsillectomy -: [place] teeth extraction - Social History Smoking Status: Never smoker Alcohol use: Yes CD- Drugs: No Caffeine use: Yes Place of Residence: Home Review of Systems 10-point ROS is otherwise unremarkable Physical Examination - Vital Signs Temperature: 97.6 F Blood Pressure: 173/92 Pulse: 64 Respirations: 16 Pulse Ox (%): 95 - Physical Exam General: Alert, In no apparent distress HEENT: Atraumatic, PERRLA, Mucous membr. moist/pink, EOMI, Sclerae nonicteric Neck: Supple, 2+ carotid pulse no bruit, No LAD, Without JVD or thyroid abnormality Respiratory: Clear to auscultation bilaterally, Normal air movement Cardiovascular: Regular rate/rhythm, Normal S1 S2 Gastrointestinal: Normal bowel sounds, No tenderness Musculoskeletal: No tenderness Integumentary: No rashes Neurological: Normal gait, Normal speech, Normal strength at 5/5 x4 extr, Normal tone, Normal affect Lymphatics: No axilla or inguinal lymphadenopathy - Diagnosis (Problem(s)) (1) Acute on chronic pancreatitis Onset Date: 06/02/18 Current Visit: Yes Status: Resolved (2) Chronic alcoholic pancreatitis Onset Date: 06/02/18 Current Visit: Yes Status: Chronic (3) HTN (hypertension) Onset Date: 06/02/18 Current Visit: Yes Status: Chronic Qualifiers: Hypertension type: essential hypertension Qualified Code(s): I10 - Essential (primary) hypertension Treatment Summary: Overall during the hospital stay patient main stable Patient was admitted to the hospital for acute pancreatitis most likely secondary to alcoholic pancreatitis. Patient was kept on IV fluids while here in the hospital along with pain management. The patient had marked resolution of the symptoms while here in the hospital. His diet was advanced to a clear liquid and then to a GI soft diet. Patient then was discharged home once he was able to tolerate diet and his pain had resolved. Patient was educated extensively on alcohol abstinence and then was discharged home under stable condition. - Disposition Disposition: ROUTINE DISCHARGE Condition: GOOD Patient Discharge Instructions: Please f.u with PCP and Gi in 1 to 2 weeks post discharge. New medication. Tramadol and Zofran Diet: Regular Activity: Ad tono
== END 2018-06-03 17:28 | disposition home or self-care (01) | DRG 440 ==
LOC: ER 01:56 → ERHOLD 06:25 → 4TH 10:27 → OBSVTOIN 13:53
PROVIDERS: ADMIT Hospitalist; ATTEND Family Medicine
DX: K85.80 Other acute pancreatitis without necrosis or infection (principal); K86.0 Alcohol-induced chronic pancreatitis; I10 Essential (primary) hypertension; F10.11 Alcohol abuse, in remission; L40.50 Arthropathic psoriasis, unspecified
CPT/HCPCS: 36415; 74177; 80048; 80053; 80061; 80076; 83690; 85025; 96374; 96375; 99285; C9113; G0378; J1170; J2175; J2270; J2405; J2550; J7030; Q9967